=== PATIENT | male | born 1945 | race Caucasian/White ===

== ENCOUNTER 2016-09-07 11:12 | Emergency (ER) | payer MEDICARE, BC, OTHER ==
[~2016-09-07] VITALS: Ht 165.1 cm; Wt 95.5 kg
[~2016-09-07 11:12] MED LIST: ASPI81TA82 PO; BISA5TAB5 PO; CITRTAB7 PO; CYMB60CA PO; LANTUS2P SQ; NOVOLOGP2 SQ; OCUVTAB PO; PRAZ5CAP16 PO; PROT40TA PO; TURM500C PO; XANA0.5T PO; [UNRECOGNIZED DRUG - CODE] PO
[2016-09-07 11:14] VITALS: BP 162/94; PULSE 90; RESP 18; TEMP 98.2; O2SAT 98
[2016-09-07] MEDS ORDERED: methylPREDNISolone SOD SUCC 125 MG/2 ML VIAL IM ONE (12:00)
[2016-09-07] MEDS ORDERED: ORPHENADRINE INJ 60 MG/2 ML AMP IM ONE (12:00)
[2016-09-07] MEDS ORDERED: KETOROLAC TROMETHAMINE 60 MG/2 ML (IM) VIAL IM ONE (12:00)
[2016-09-07] MEDS ORDERED: CYCL5TAB PO (12:35)
--- NOTE | 2016-09-07 12:36 | PD ---
HPI Chief Complaint: Pain: Acute or Chronic Time Seen by Provider: 11:50 Travel History International Travel<30 days: No Contact w/Intl Traveler<30days: No Traveled to known affect area: No History of Present Illness HPI Patient is a 71-year-old male presenting to emergency for evaluation of left lower back pain. Patient has a history of sciatica, he states that he has been in physical therapy for the last 2 weeks. He reports exacerbation of his symptoms yesterday afternoon after physical therapy and when he notified his primary doctor he was advised to come to emergency department today. Patient states he has pain radiating down his left leg posteriorly as well as to the left groin. He denies any numbness, weakness in his extremities. He denies any recent injury or trauma. Patient has had exacerbations in the past similar to symptoms he is experiencing today. PFSH Past Medical History Hx Anticoagulant Therapy: Yes (asa) Arthritis: Yes Asthma: No Autoimmune Disease: No Blood Disorders: No Bipolar Disorder: Yes Anxiety: Yes Depression: Yes Heart Rhythm Problems: Yes Cancer: No Cardiac Catheterization: Yes Cardiovascular Problems: Yes (BYPASS) High Cholesterol: Yes Chemotherapy: No Chest Pain: Yes Congestive Heart Failure: Yes COPD: No Cerebrovascular Accident: No Coronary Artery Disease: Yes Diabetes: Yes Diminished Hearing: No Endocrine: Yes Gastrointestinal Disorders: Yes (GERD, ULCER, CORODED ESOPHAGUS, HX OF ESOPHAGEAL STRICTURE/DILATION) GERD: No Glaucoma: No Genitourinary: Yes (ENLARGED PROSTATE) Headaches: No Hepatitis: No Hiatal Hernia: Yes Hypertension: Yes Immune Disorder: No Implanted Vascular Access Dvce: No Kidney Stones: No Musculoskeletal: Yes (HX OF CERVICAL FUSION, BACK PROBLEMS, ARTHRITIS) Neurologic: Yes (MEINIERE'S DISEASE, BALANCE ISSUES) Psychiatric: Yes (PTSD) Reproductive: No Respiratory: No Immunizations Current: Yes Migraines: No Myocardial Infarction: Yes Radiation Therapy: No Renal Failure: No 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) Sickle Cell Disease: No Sleep Apnea: No Thyroid Disease: No Ulcer: No PNEUMOCCOCAL Vaccine (Year): 2009 Past Surgical History Abdominal Surgery: Yes (APPENDECTOMY - 1949; HERNIA - 2006; GANGRENOUS CYST ABDOMEN - 2006) AICD: No Appendectomy: Yes Arteriovenous Shunt: No Body Medical Devices: PLATE IN NECK, L LEG SCREW AND PLATES--REMOVED Cardiac Surgery: Yes (CABG 5 VESSEL 2000) Cholecystectomy: Yes (04/29/14) Coronary Artery Bypass Graft: Yes (5 VESSEL BYPASS) Coronary Stent: Yes (X3) Ear Surgery: No Endocrine Surgery: No Eye Surgery: Yes (2008 CATARACTS BILATERALLY) Genitourinary Surgery: Yes (TURP) Gynecologic Surgery: No Hysterectomy: No Insulin Pump: No Joint Replacement: No Neurologic Surgery: No Oral Surgery: Yes (TONSILECTOMY) Pacemaker: Yes (leads present) Thoracic Surgery: Yes (SEE CARDIAC SURGERY) Tonsillectomy: Yes Other Surgery: Yes (LEFT LEG R/T INJURY) Social History Alcohol Use: Yes (2X WEEKLY) Tobacco Use: No Substance Use: No Allergies-Medications (Allergen,Severity, Reaction): Coded Allergies: Lisinopril (Verified Allergy, Severe, Edema, 11/01/15) MRI PRECAUTION (Verified Adverse Reaction, Severe, PACER LEAD IN CHEST~ DR. GARCIA~LRS~06/26/14, 11/01/15) Lortab (Verified Adverse Reaction, Intermediate, ANXIETY, 11/01/15) Reported Meds & Prescriptions Reported Meds & Active Scripts Active Reported Xanax 0.5 mg (Alprazolam) Alprazolam 0.5 mg Tab 1 Tab PO Q6H PRN Cymbalta (Duloxetine Hcl) 60 Mg Cap 60 Mg PO DAILY Dulcolax (Bisacodyl) 5 Mg Tabec 5 Mg PO BID Ocuvite (Vit A/Vit C/Vit E/Selen/Cu/Zn/Lutei) Tab 1 Tab PO DAILY Turmeric Curcumin (Turmeric (Curcuma Longa)) 500 Mg Cap 500 Mg PO DAILY Citracal + D3 Maximum (Calcium Citrate/Cholecalciferol) Tab 1 Tab PO DAILY Prazosin Hcl (Prazosin HCl) 5 Mg Cap 5 Mg PO HS Protonix (Pantoprazole Sodium) 40 Mg Tab 40 Mg PO BID Novolog (Insulin Aspart) 100 Units/Ml Inj 25 Units SQ TIDAC HOLD IF BGM <120 Lantus (Insulin Glargine) 100 Units/Ml Inj 27 Unit SQ HS Aspir-81 (Aspirin) 81 Mg Tab 81 Mg PO DAILY Fortamet (Metformin HCl) 1,000 Mg Tab 1,000 Mg PO BID Review of Systems Except as stated in HPI: all other systems reviewed are Neg Musculoskeletal: Positive: Pain Physical Exam Narrative GENERAL: Well-nourished, well-developed patient. SKIN: Warm and dry. HEAD: Normocephalic. EYES: No scleral icterus. No injection or drainage. NECK: Supple, trachea midline. No JVD or lymphadenopathy. CARDIOVASCULAR: Regular rate and rhythm without murmurs, gallops, or rubs. RESPIRATORY: Breath sounds equal bilaterally. No accessory muscle use. GASTROINTESTINAL: Abdomen soft, non-tender, nondistended. MUSCULOSKELETAL: No cyanosis, or edema. Tenderness to palpation of left SI joint. 5/5 muscle strength in bilateral lower extremities. Left leg left elicits pain in the lower back. Full range of motion in all 4 extremities. Patient is neurologically and neurovascularly intact. BACK: Nontender without obvious deformity. No CVA tenderness. Data Data Last Documented VS Vital Signs Date Time Temp Pulse Resp B/P Pulse Ox O2 Delivery O2 Flow Rate FiO2 09/07/16 11:14 98.2 90 18 162/94 98 Room Air Orders Ketorolac Inj (Toradol Inj) (09/07/16 12:00) Methylprednisolone So Succ Inj (Solumedr (09/07/16 12:00) Orphenadrine Inj (Norflex Inj) (09/07/16 12:00) MDM Medical Decision Making Medical Screen Exam Complete: Yes Emergency Medical Condition: Yes Interpretation(s) Vital Signs Date Time Temp Pulse Resp B/P Pulse Ox O2 Delivery O2 Flow Rate FiO2 09/07/16 11:14 98.2 90 18 162/94 98 Room Air Differential Diagnosis Sciatica versus discogenic pain versus strain versus sprain versus spasm versus other Narrative Course Patient is a 71-year-old male presenting to the emergency department for evaluation of an exacerbation of his sciatica symptoms. This is a chronic issue , patient has been evaluated for this problem by his primary doctor and is currently undergoing physical therapy. The physical therapy has exacerbated his symptoms. Patient is neurologically intact, there is no weakness noted on exam he has full range of motion in all 4 extremities. Patient was given Norflex, Toradol, Solu-Medrol in the emergency department. He was advised to follow-up with his primary doctor for further evaluation and management. He was encouraged to return to emergency department for any new or worsening symptoms. He verbalized understanding of these instructions. Patient is stable for discharge. Diagnosis Primary Impression: Sciatica Qualified Code: M54.32 - Sciatica of left side Referrals: Primary Care Physician 1 day Patient Instructions: General Instructions, Sciatica (ED) Additional Instructions: Monitor blood sugar closely Follow-up with your primary doctor Take medications as directed Return to emergency department for any new or worsening symptoms Take [id number] acetaminophen as needed and as directed for pain Med/Other Pt SpecificInfo: Prescription(s) given Scripts Cyclobenzaprine (Flexeril)5 Mg Tab5 Mg PO BID 7 Days Ref 0 Prov:Concetta Martinez 09/07/16 Disposition: 01 DISCHARGE HOME Condition: Stable Concetta Martinez Sep 07, 2016 12:35
== END 2016-09-07 12:39 | disposition home or self-care (01) ==
LOC: NEPB 11:12
DX: M54.32 Sciatica, left side (principal); E78.00 Pure hypercholesterolemia, unspecified; I50.9 Heart failure, unspecified; I25.10 Atherosclerotic heart disease of native coronary artery without angina pectoris; E11.9 Type 2 diabetes mellitus without complications; I25.2 Old myocardial infarction; H81.09 Meniere's disease, unspecified ear; I10 Essential (primary) hypertension
CPT/HCPCS: 96372; 99282; J1885; J2360; J2930

== ENCOUNTER 2016-09-09 16:19 | Emergency (ER) | payer MEDICARE, BC, OTHER ==
[~2016-09-09] VITALS: Ht 165.1 cm; Wt 98.0 kg
[~2016-09-09 16:19] MED LIST changes: +CYCL5TAB PO
[2016-09-09 16:37] VITALS: BP 121/80; PULSE 86; RESP 14; TEMP 98.2; O2SAT 98
--- NOTE | 2016-09-09 17:42 | PD ---
HPI . sciatica Chief Complaint: Back/ Neck Pain or Injury Time Seen by Provider: 17:42 Travel History International Travel<30 days: No Contact w/Intl Traveler<30days: No Traveled to known affect area: No History of Present Illness HPI 71-year-old male with chronic back pain and sciatica here with complaints of sciatica. Patient was seen in our emergency department at the [facility] on September 07 for sciatica. He tells me since then he has traveled to [facility] to their hospital there and his primary care provider. He says he is not getting relief from any of the medications that we have provided him and he is here seeking pain management consultation. He tells me that his primary care provider told to come to the emergency department and we would be able to set him up with pain management. He is here wanting to see a pain specialist today. He says his PCP told him that he would send over all of the paperwork. He is hoping that we have some medications for him. Patient became upset when we discussed his pain and that I could not get pain management to see him in the ED. He told me that he might as well leave. He did allow examination. PFSH Past Medical History Hx Anticoagulant Therapy: Yes (asa) Arthritis: Yes Asthma: No Autoimmune Disease: No Blood Disorders: No Bipolar Disorder: Yes Anxiety: Yes Depression: Yes Heart Rhythm Problems: Yes Cancer: No Cardiac Catheterization: Yes Cardiovascular Problems: Yes (BYPASS) High Cholesterol: Yes Chemotherapy: No Chest Pain: Yes Congestive Heart Failure: Yes COPD: No Cerebrovascular Accident: No Coronary Artery Disease: Yes Diabetes: Yes Patient Takes Glucophage: No Diminished Hearing: No Endocrine: Yes Gastrointestinal Disorders: Yes (GERD, ULCER, CORODED ESOPHAGUS, HX OF ESOPHAGEAL STRICTURE/DILATION) GERD: No Glaucoma: No Genitourinary: Yes (ENLARGED PROSTATE) Headaches: No Hepatitis: No Hiatal Hernia: Yes Hypertension: Yes Immune Disorder: No Implanted Vascular Access Dvce: No Kidney Stones: No Musculoskeletal: Yes (HX OF CERVICAL FUSION, BACK PROBLEMS, ARTHRITIS) Neurologic: Yes (MEINIERE'S DISEASE, BALANCE ISSUES) Psychiatric: Yes (PTSD) Reproductive: No Respiratory: No Immunizations Current: Yes Migraines: No Myocardial Infarction: Yes Radiation Therapy: No Renal Failure: No 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) Sickle Cell Disease: No Sleep Apnea: No Thyroid Disease: No Ulcer: No Tetanus Vaccination: < 5 Years Influenza Vaccination: Yes PNEUMOCCOCAL Vaccine (Year): 2009 Past Surgical History Abdominal Surgery: Yes (APPENDECTOMY - 1949; HERNIA - 2006; GANGRENOUS CYST ABDOMEN - 2006) AICD: No Appendectomy: Yes Arteriovenous Shunt: No Body Medical Devices: PLATE IN NECK, L LEG SCREW AND PLATES--REMOVED Cardiac Surgery: Yes (CABG 5 VESSEL 2000) Cholecystectomy: Yes (04/29/14) Coronary Artery Bypass Graft: Yes (5 VESSEL BYPASS) Coronary Stent: Yes (X3) Ear Surgery: No Endocrine Surgery: No Eye Surgery: Yes (2008 CATARACTS BILATERALLY) Genitourinary Surgery: Yes (TURP) Gynecologic Surgery: No Hysterectomy: No Insulin Pump: No Joint Replacement: No Neurologic Surgery: No Oral Surgery: Yes (TONSILECTOMY) Pacemaker: Yes (leads present) Thoracic Surgery: Yes (SEE CARDIAC SURGERY) Tonsillectomy: Yes Other Surgery: Yes (LEFT LEG R/T INJURY) Social History Alcohol Use: Yes (2X WEEKLY) Tobacco Use: No Substance Use: No Allergies-Medications (Allergen,Severity, Reaction): Coded Allergies: Lisinopril (Verified Allergy, Severe, Edema, 09/09/16) MRI PRECAUTION (Verified Adverse Reaction, Severe, PACER LEAD IN CHEST~ DR. GARCIA~LRS~06/26/14, 09/09/16) Lortab (Verified Adverse Reaction, Intermediate, ANXIETY, 09/09/16) Reported Meds & Prescriptions Reported Meds & Active Scripts Active Flexeril (Cyclobenzaprine HCl) 5 Mg Tab 5 Mg PO BID 7 Days Reported Xanax 0.5 mg (Alprazolam) Alprazolam 0.5 mg Tab 1 Tab PO Q6H PRN Cymbalta (Duloxetine Hcl) 60 Mg Cap 60 Mg PO DAILY Dulcolax (Bisacodyl) 5 Mg Tabec 5 Mg PO BID Ocuvite (Vit A/Vit C/Vit E/Selen/Cu/Zn/Lutei) Tab 1 Tab PO DAILY Turmeric Curcumin (Turmeric (Curcuma Longa)) 500 Mg Cap 500 Mg PO DAILY Citracal + D3 Maximum (Calcium Citrate/Cholecalciferol) Tab 1 Tab PO DAILY Prazosin Hcl (Prazosin HCl) 5 Mg Cap 5 Mg PO HS Protonix (Pantoprazole Sodium) 40 Mg Tab 40 Mg PO BID Novolog (Insulin Aspart) 100 Units/Ml Inj 25 Units SQ TIDAC HOLD IF BGM <120 Lantus (Insulin Glargine) 100 Units/Ml Inj 27 Unit SQ HS Aspir-81 (Aspirin) 81 Mg Tab 81 Mg PO DAILY Fortamet (Metformin HCl) 1,000 Mg Tab 1,000 Mg PO BID Review of Systems General / Constitutional: No: Fever Eyes: No: Visual changes HENT: No: Headaches Cardiovascular: No: Chest Pain or Discomfort Respiratory: No: Shortness of Breath Gastrointestinal: No: Abdominal Pain Genitourinary: No: Dysuria Musculoskeletal: Positive: Pain (sciatica) Skin: No Rash Neurologic: No: Weakness Psychiatric: No: Depression Endocrine: No: Polydipsia Hematologic/Lymphatic: No: Easy Bruising Physical Exam Narrative GENERAL: AAO x 3, no acute distress, Well-nourished, well-developed patient. SKIN: Warm and dry. No visible rashes or bruising. HEAD: Normocephalic and atraumatic. EYES: No scleral icterus. No injection or drainage. ENT: No nasal drainage noted. Mucous membranes pink. Airway patent. NECK: Supple, trachea midline. No JVD. CARDIOVASCULAR: Regular rate and rhythm without murmurs, gallops, or rubs. RESPIRATORY: Breath sounds equal bilaterally. No accessory muscle use. No rhonchi or rales. GASTROINTESTINAL: Abdomen soft, non-tender, nondistended. EXTREMITIES: No cyanosis or edema. BACK: Nontender without obvious deformity. No CVA tenderness. Negative SLR. PSYCH: AAO x 3, normal affect. Data Data Last Documented VS Vital Signs Date Time Temp Pulse Resp B/P Pulse Ox O2 Delivery O2 Flow Rate FiO2 09/09/16 16:37 98.2 86 14 121/80 98 MDM Medical Decision Making Medical Screen Exam Complete: Yes Emergency Medical Condition: No Medical Record Reviewed: Yes Differential Diagnosis sciatica, acute on chronic back pain, less likely cauda equina Narrative Course 71-year-old male with chronic back pain and sciatica here with complaints of sciatica. Patient was seen in our emergency department at the [facility] on September 07 for sciatica. He tells me since then he has traveled to [facility] to their hospital there and his primary care provider. He says he is not getting relief from any of the medications that we have provided him and he is here seeking pain management consultation. He tells me that his primary care provider told to come to the emergency department and we would be able to set him up with pain management. He is here wanting to see a pain specialist today. He says his PCP told him that he would send over all of the paperwork. He is hoping that we have some medications for him. Patient became upset when we discussed his pain and that I could not get pain management to see him in the ED. He told me that he might as well leave. He did allow examination. A medical screening exam was performed: At the time of evaluation the presenting medical condition was determined not to be of an emergent nature. The patient was given the option of receiving additional care, but declined. Patient was given options for additional community resources from which to obtain care. The Patient Has Been advised to seek medical attention for their presenting complaint. The patient has been advised to return to the ER at any time if an emergent condition develops. Diagnosis Primary Impression: Encounter for medical screening examination Disposition: 01 DISCHARGE HOME Condition: Stable Antoinette Enriquez Sep 09, 2016 17:42
== END 2016-09-09 18:05 | disposition left against medical advice (07) ==
LOC: PHED 16:19 → PHEFT 18:05
DX: G89.29 Other chronic pain (principal); M54.5 Low back pain
CPT/HCPCS: 99281

== ENCOUNTER 2016-09-18 14:16 | Emergency (ER) | payer MEDICARE, BC, OTHER ==
[~2016-09-18] VITALS: Ht 165.1 cm; Wt 97.0 kg
[2016-09-18 14:24] VITALS: BP 133/86; PULSE 87; RESP 20; TEMP 97.9; O2SAT 96
[2016-09-18] MEDS ORDERED: CYMB60CA PO (14:42)
[2016-09-18] MEDS ORDERED: DULC5TAB PO (14:42)
[2016-09-18] MEDS ORDERED: NOVOLOGSS SQ (14:42)
[2016-09-18] MEDS ORDERED: CYCL5TAB PO (14:42)
[2016-09-18] MEDS ORDERED: ASPI-110 PO (14:42)
[2016-09-18] MEDS ORDERED: ALPR0.5T3 PO (14:42)
--- NOTE | 2016-09-18 14:43 | PD ---
HPI Chief Complaint: Pain: Acute or Chronic Time Seen by Provider: 14:31 Travel History International Travel<30 days: No Contact w/Intl Traveler<30days: No Traveled to known affect area: No History of Present Illness HPI 71-year-old male complains of left-sided low back pain. Patient states that he has history of recurrent low back pain has been seen by physicians, emergency room, personal physician, neurologist and awaiting appointment with pain clinic. Patient was seen in emergency room at [place] a week ago and subsequently at [facility] for pain. Patient denies any focal weakness or numbness of extremity. Patient denies any problem with bladder or bowel control. Patient has been taking hydrocodone at home for pain. Patient was given Medrol Dosepak recently also. PFSH Past Medical History Hx Anticoagulant Therapy: Yes (ASA 81 MG) Arthritis: Yes Asthma: No Autoimmune Disease: No Blood Disorders: No Bipolar Disorder: Yes Anxiety: Yes Depression: Yes Heart Rhythm Problems: Yes Cancer: No Cardiac Catheterization: Yes Cardiovascular Problems: Yes (BYPASS) High Cholesterol: Yes Chemotherapy: No Chest Pain: Yes Congestive Heart Failure: Yes COPD: No Cerebrovascular Accident: No Coronary Artery Disease: Yes Diabetes: Yes Patient Takes Glucophage: Yes Diminished Hearing: No Endocrine: Yes Gastrointestinal Disorders: Yes (GERD, ULCER, CORODED ESOPHAGUS, HX OF ESOPHAGEAL STRICTURE/DILATION) GERD: No Glaucoma: No Genitourinary: Yes (ENLARGED PROSTATE) Headaches: No Hepatitis: No Hiatal Hernia: Yes Heparin Induced Thrombocytopen: No Hypertension: Yes Immune Disorder: No Implanted Vascular Access Dvce: No Kidney Stones: No Medical other: No Musculoskeletal: Yes (HX OF CERVICAL FUSION, BACK PROBLEMS, ARTHRITIS) Neurologic: Yes (MEINIERE'S DISEASE, BALANCE ISSUES) Psychiatric: Yes (PTSD) Reproductive: No Respiratory: No Immunizations Current: Yes Migraines: No Myocardial Infarction: Yes Radiation Therapy: No Renal Failure: No 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) Sickle Cell Disease: No Sleep Apnea: No Thyroid Disease: No Ulcer: No Tetanus Vaccination: < 5 Years PNEUMOCCOCAL Vaccine (Year): 2009 Past Surgical History Abdominal Surgery: Yes (APPENDECTOMY - 1949; HERNIA - 2006; GANGRENOUS CYST ABDOMEN - 2006) AICD: No Appendectomy: Yes Arteriovenous Shunt: No Body Medical Devices: PLATE IN NECK, L LEG SCREW AND PLATES--REMOVED Cardiac Surgery: Yes (CABG 5 VESSEL 2000) Cholecystectomy: Yes (04/29/14) Coronary Artery Bypass Graft: Yes (5 VESSEL BYPASS) Coronary Stent: Yes (X3) Ear Surgery: No Endocrine Surgery: No Eye Surgery: Yes (2008 CATARACTS BILATERALLY) Genitourinary Surgery: Yes (TURP) Gynecologic Surgery: No Hysterectomy: No Insulin Pump: No Joint Replacement: No Neurologic Surgery: No Oral Surgery: Yes (TONSILECTOMY) Pacemaker: Yes (leads present) Thoracic Surgery: Yes (SEE CARDIAC SURGERY) Tonsillectomy: Yes Other Surgery: Yes (LEFT LEG R/T INJURY) Social History Alcohol Use: Yes (2X WEEKLY) Tobacco Use: No Substance Use: No Allergies-Medications (Allergen,Severity, Reaction): Coded Allergies: Lisinopril (Verified Allergy, Severe, Edema, 09/18/16) MRI PRECAUTION (Verified Adverse Reaction, Severe, PACER LEAD IN CHEST~ DR. GARCIA~LRS~06/26/14, 09/18/16) Lortab (Verified Adverse Reaction, Intermediate, ANXIETY, 09/18/16) Reported Meds & Prescriptions Reported Meds & Active Scripts Active Reported Turmeric (Turmeric (Curcuma Longa)) 500 Mg Cap 500 Mg PO DAILY Prazosin (Prazosin HCl) 5 Mg Cap 5 Mg PO HS Protonix (Pantoprazole Sodium) 40 Mg Tab 40 Mg PO BID Lantus Inj (Insulin Glargine) 1,000 Unit/10 Ml Vial 27 Units SQ HS Novolog Inj (Insulin Aspart) 100 Unit/Ml Inj 25 Units SQ DIRECTED Cymbalta DR (Duloxetine HCl) 60 Mg Capdr 60 Mg PO DAILY Flexeril (Cyclobenzaprine HCl) 5 Mg Tab 5 Mg PO BID Dulcolax DR (Bisacodyl) 5 Mg Tabdr 5 Mg PO BID PRN Alprazolam 0.5 Mg Tab 0.5 Mg PO Q6H PRN Review of Systems General / Constitutional: No: Fever Eyes: No: Visual changes HENT: No: Headaches Cardiovascular: No: Chest Pain or Discomfort Respiratory: No: Shortness of Breath Gastrointestinal: No: Abdominal Pain Genitourinary: No: Dysuria Musculoskeletal: No: Pain Skin: No Rash Neurologic: No: Weakness Psychiatric: No: Depression Endocrine: No: Polydipsia Hematologic/Lymphatic: No: Easy Bruising Physical Exam Narrative GENERAL: Well-nourished, well-developed patient. SKIN: Focused skin assessment warm/dry. HEAD: Normocephalic. EYES: No scleral icterus. No injection or drainage. NECK: Supple, trachea midline. No JVD or lymphadenopathy. CARDIOVASCULAR: Regular rate and rhythm without murmurs, gallops, or rubs. RESPIRATORY: Breath sounds equal bilaterally. No accessory muscle use. GASTROINTESTINAL: Abdomen soft, non-tender, nondistended. MUSCULOSKELETAL: No cyanosis, or edema. BACK: Patient had moderate tenderness on palpation right sciatic notch and right SI joint of the pelvis, without obvious deformity. No CVA tenderness. Negative straight leg raising. Neurologic exam normal. Data Data Last Documented VS Vital Signs Date Time Temp Pulse Resp B/P Pulse Ox O2 Delivery O2 Flow Rate FiO2 09/18/16 14:24 97.9 87 20 133/86 96 Orders Ketorolac Inj (Toradol Inj) (09/18/16 14:45) Orphenadrine Inj (Norflex Inj) (09/18/16 14:45) MDM Medical Decision Making Medical Screen Exam Complete: Yes Emergency Medical Condition: Yes Differential Diagnosis Differential diagnosis including acute on chronic low back pain, sciatica, bursitis, tendinitis. Narrative Course 71-year-old male complains of right low back pain and right buttock pain. History of recurrent low back pain and sciatica. Toradol 30 mg IM. Norflex 60 mg IM. Diagnosis Primary Impression: Acute exacerbation of chronic low back pain Patient Instructions: General Instructions Additional Instructions: Take medications as directed. Follow-up with personal physician and pain clinic as scheduled. Return if worse. Med/Other Pt SpecificInfo: Prescription(s) given Scripts Methocarbamol (Robaxin)750 Mg Qrk020 Mg PO QID #40 TAB Prov:Julio Cesar Irving MD 09/18/16 Meloxicam (Mobic)15 Mg Tab15 Mg PO DAILY #20 TAB Prov:Julio Cesar Irving MD 09/18/16 Disposition: 01 DISCHARGE HOME Condition: Stable Julio Cesar Irving MD Sep 18, 2016 14:43
[2016-09-18] MEDS ORDERED: LANTUS2P SQ (14:44)
[2016-09-18] MEDS ORDERED: PROT40TA PO (14:44)
[2016-09-18] MEDS ORDERED: PRAZ5CAP PO (14:44)
[2016-09-18] MEDS ORDERED: TURM500C PO (14:44)
[2016-09-18] MEDS ORDERED: ORPHENADRINE INJ 60 MG/2 ML AMP IM ONE (14:45)
[2016-09-18] MEDS ORDERED: KETOROLAC TROMETHAMINE 60 MG/2 ML (IM) VIAL IM ONE (14:45)
[2016-09-18] MEDS ORDERED: ROBA750T PO (15:11)
[2016-09-18] MEDS ORDERED: MOBI15TA PO (15:11)
== END 2016-09-18 15:24 | disposition home or self-care (01) ==
LOC: PHED 14:16
DX: M54.5 Low back pain (principal); G89.29 Other chronic pain; M19.90 Unspecified osteoarthritis, unspecified site; E78.00 Pure hypercholesterolemia, unspecified; I11.0 Hypertensive heart disease with heart failure; I50.9 Heart failure, unspecified; E11.9 Type 2 diabetes mellitus without complications; I25.10 Atherosclerotic heart disease of native coronary artery without angina pectoris; Z95.0 Presence of cardiac pacemaker
CPT/HCPCS: 96372; 99283; J1885; J2360

== ENCOUNTER 2016-10-17 09:35 | Emergency (ER) | payer MEDICARE, BC ==
[~2016-10-17] VITALS: Ht 165.1 cm; Wt 95.5 kg
[~2016-10-17 09:35] MED LIST changes: +ALPR0.5T3 PO; -ASPI81TA82 PO; -BISA5TAB5 PO; -CITRTAB7 PO; +DULC5TAB PO; +MOBI15TA PO; -NOVOLOGP2 SQ; +NOVOLOGSS SQ; -OCUVTAB PO; +PRAZ5CAP PO; -PRAZ5CAP16 PO; +ROBA750T PO; -XANA0.5T PO; -[UNRECOGNIZED DRUG - CODE] PO
[2016-10-17 09:37] VITALS: BP 154/79; PULSE 82; RESP 17; TEMP 97.7; O2SAT 98
[2016-10-17] MEDS ORDERED: DEXTROSE 50% IN WATER 50 ML SYRINGE ONE (09:49)
[2016-10-17] MEDS ORDERED: ROSU20 PO (10:02)
[2016-10-17] MEDS ORDERED: DIAZ2TAB PO (10:02)
[2016-10-17] MEDS ORDERED: ALBI1INJ2 SQ (10:02)
[2016-10-17] MEDS ORDERED: HYDR-3533 PO (10:02)
[2016-10-17] MEDS ORDERED: PRIL20CA9 PO (10:02)
[2016-10-17] MEDS ORDERED: ASPI81TA81 PO (10:02)
[2016-10-17] MEDS ORDERED: ALFU10TA3 PO (10:02)
[2016-10-17] MEDS ORDERED: AMLO5 PO (10:03)
[2016-10-17] MEDS ORDERED: MULT1TAB78 PO (10:03)
[2016-10-17] MEDS ORDERED: TRAZ50TA12 PO (10:03)
--- NOTE | 2016-10-17 10:22 | PD ---
HPI Chief Complaint: General Weakness Time Seen by Provider: 10:06 Travel History International Travel<30 days: No Contact w/Intl Traveler<30days: No Traveled to known affect area: No History of Present Illness HPI This patient reports that he had a low blood sugar attack. He has history of brittle diabetes and is very challenging for him to control his blood sugars. He says they're often too low and often too high. He does track them frequently and discusses with his physician. He used his usual Lantus insulin last night. This morning he gave himself 20 units of NovoLog at around 7 AM. He ate a breakfast of Hungarian toast. Later on he started to get generalized weakness and then get diaphoretic and shaky. He presents to the emergency room. He has a Accu-Chek of 60 upon arrival. Comes are of moderate severity. No alleviating factors. Duration is one hour. PFSH Past Medical History Hx Anticoagulant Therapy: Yes (ASA 81 MG) Arthritis: Yes Asthma: No Autoimmune Disease: No Blood Disorders: No Bipolar Disorder: Yes Anxiety: Yes Depression: Yes Heart Rhythm Problems: Yes Cancer: No Cardiac Catheterization: Yes Cardiovascular Problems: Yes (BYPASS) High Cholesterol: Yes Chemotherapy: No Chest Pain: Yes Congestive Heart Failure: Yes COPD: No Cerebrovascular Accident: No Coronary Artery Disease: Yes Diabetes: Yes Patient Takes Glucophage: No Diminished Hearing: No Endocrine: Yes Gastrointestinal Disorders: Yes (GERD, ULCER, CORODED ESOPHAGUS, HX OF ESOPHAGEAL STRICTURE/DILATION) GERD: No Glaucoma: No Genitourinary: Yes (ENLARGED PROSTATE) Headaches: No Hepatitis: No Hiatal Hernia: Yes Heparin Induced Thrombocytopen: No Hypertension: Yes Immune Disorder: No Implanted Vascular Access Dvce: No Kidney Stones: No Musculoskeletal: Yes (HX OF CERVICAL FUSION, BACK PROBLEMS, ARTHRITIS) Neurologic: Yes (MEINIERE'S DISEASE, BALANCE ISSUES) Psychiatric: Yes (PTSD) Reproductive: No Respiratory: No Immunizations Current: Yes Migraines: No Myocardial Infarction: Yes Radiation Therapy: No Renal Failure: No 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) Sickle Cell Disease: No Sleep Apnea: No Thyroid Disease: No Triglycerides - High: No Ulcer: No PNEUMOCCOCAL Vaccine (Year): 2009 Past Surgical History Abdominal Surgery: Yes (APPENDECTOMY - 1949; HERNIA - 2006; GANGRENOUS CYST ABDOMEN - 2006) AICD: No Appendectomy: Yes Arteriovenous Shunt: No Body Medical Devices: PLATE IN NECK, L LEG SCREW AND PLATES--REMOVED Cardiac Surgery: Yes (CABG 5 VESSEL 2000) Cholecystectomy: Yes (04/29/14) Coronary Artery Bypass Graft: Yes (5 VESSEL BYPASS) Coronary Stent: Yes (X3) Ear Surgery: No Endocrine Surgery: No Eye Surgery: Yes (2008 CATARACTS BILATERALLY) Genitourinary Surgery: Yes (TURP) Gynecologic Surgery: No Hysterectomy: No Insulin Pump: No Joint Replacement: No Neurologic Surgery: No Oral Surgery: Yes (TONSILECTOMY) Pacemaker: Yes Thoracic Surgery: Yes (SEE CARDIAC SURGERY) Tonsillectomy: Yes Other Surgery: Yes (LEFT LEG R/T INJURY) Social History Alcohol Use: Yes (2X WEEKLY) Tobacco Use: No (0.5 PPD) Substance Use: No Allergies-Medications (Allergen,Severity, Reaction): Coded Allergies: Lisinopril (Verified Allergy, Severe, Edema, 10/17/16) MRI PRECAUTION (Verified Adverse Reaction, Severe, PACER LEAD IN CHEST~ DR. GARCIA~LRS~06/26/14, 10/17/16) Lortab (Verified Adverse Reaction, Intermediate, ANXIETY, 10/17/16) Reported Meds & Prescriptions Reported Meds & Active Scripts Active Robaxin (Methocarbamol) 750 Mg Tab 750 Mg PO QID Mobic (Meloxicam) 15 Mg Tab 15 Mg PO DAILY Reported Trazodone (Trazodone HCl) 50 Mg Tab 50 Mg PO HS Multivitamin Adults 50+ (Multiple Vitamins W/ Minerals) 1 Tab Tab 1 Tab PO DAILY Norvasc (Amlodipine Besylate) 5 Mg Tab 5 Mg PO DAILY Lortab (Hydrocodone-Acetaminophen) 5-325 Mg Tab 1 Tab PO Q6H PRN Diazepam 2 Mg Tab 2 Mg PO TID PRN Aspir-81 (Aspirin) 81 Mg Tabdr 81 Mg PO DAILY Crestor (Rosuvastatin Calcium) 20 Mg Tab 20 Mg PO DAILY Alfuzosin HCl ER (Alfuzosin HCl) 10 Mg Tab 10 Mg PO HS Tanzeum 4-Pack Inj (Albiglutide) 50 Mg Pfpen 50 Mg SQ Q7D Prilosec (Omeprazole) 20 Mg Cap 40 Mg PO DAILY Turmeric (Turmeric (Curcuma Longa)) 500 Mg Cap 500 Mg PO DAILY Prazosin (Prazosin HCl) 5 Mg Cap 5 Mg PO HS Lantus Inj (Insulin Glargine) 1,000 Unit/10 Ml Vial 50 Units SQ HS Novolog Inj (Insulin Aspart) 100 Unit/Ml Inj 25 Units SQ DIRECTED Cymbalta DR (Duloxetine HCl) 60 Mg Capdr 60 Mg PO DAILY Dulcolax DR (Bisacodyl) 5 Mg Tabdr 5 Mg PO BID PRN Review of Systems General / Constitutional: No: Fever Eyes: No: Visual changes HENT: No: Headaches Cardiovascular: Positive: Diaphoresis, No: Chest Pain or Discomfort Respiratory: No: Shortness of Breath Gastrointestinal: No: Abdominal Pain Genitourinary: No: Dysuria Musculoskeletal: Positive: Weakness, No: Pain Skin: No Rash Neurologic: Positive: Weakness Psychiatric: No: Depression Endocrine: No: Polydipsia Hematologic/Lymphatic: No: Easy Bruising Physical Exam Narrative GENERAL: Well-nourished, well-developed patient in no apparent distress. SKIN: Focused skin assessment reveals no rash and nodules. Skin is a bit diaphoretic HEAD: Atraumatic. Normocephalic. EYES: Pupils equal and round. No scleral icterus. No injection or drainage. ENT: No nasal bleeding or discharge. Mucous membranes pink and moist. NECK: Trachea midline. No JVD. CARDIOVASCULAR: Regular rate and rhythm. No murmur appreciated. RESPIRATORY: No accessory muscle use. Clear to auscultation. Breath sounds equal bilaterally. GASTROINTESTINAL: Abdomen soft, non-tender, nondistended. Hepatic and splenic margins not palpable. MUSCULOSKELETAL: No obvious deformities. No clubbing. No cyanosis. No edema. NEUROLOGICAL: Awake and alert. No obvious cranial nerve deficits. Motor grossly within normal limits. Normal speech. PSYCHIATRIC: Appropriate mood and affect; insight and judgment normal. Data Data Last Documented VS Vital Signs Date Time Temp Pulse Resp B/P Pulse Ox O2 Delivery O2 Flow Rate FiO2 10/17/16 09:37 97.7 82 17 154/79 98 Orders Dextrose 50% In Ruben (Syr) Inj (D50w (Syr (10/17/16 09:49) Dextrose 50% In Ruben (Vial) Inj (D50w (Vi (10/17/16 10:30) Iv Access Insert/Monitor (10/17/16 10:16) Complete Blood Count With Diff (10/17/16 10:16) Basic Metabolic Panel (Bmp) (10/17/16 10:16) Diet Regular Basic (10/17/16 Breakfast) Labs Laboratory Tests Test 10/17/16 10:15 White Blood Count 12.1 TH/MM3 Red Blood Count 6.05 MIL/MM3 Hemoglobin 13.2 GM/DL Hematocrit 42.9 % Mean Corpuscular Volume 70.9 FL Mean Corpuscular Hemoglobin 21.8 PG Mean Corpuscular Hemoglobin 30.8 % Concent Red Cell Distribution Width 22.1 % Platelet Count 206 TH/MM3 Mean Platelet Volume 9.2 FL Neutrophils (%) (Auto) 61.7 % Lymphocytes (%) (Auto) 29.5 % Monocytes (%) (Auto) 7.4 % Eosinophils (%) (Auto) 0.8 % Basophils (%) (Auto) 0.6 % Neutrophils # (Auto) 7.4 TH/MM3 Lymphocytes # (Auto) 3.6 TH/MM3 Monocytes # (Auto) 0.9 TH/MM3 Eosinophils # (Auto) 0.1 TH/MM3 Basophils # (Auto) 0.1 TH/MM3 CBC Comment AUTO DIFF Differential Comment AUTO DIFF CONFIRMED Ovalocytes 1+ Sodium Level 141 MEQ/L Potassium Level 3.4 MEQ/L Chloride Level 106 MEQ/L Carbon Dioxide Level 27.3 MEQ/L Anion Gap 8 MEQ/L Blood Urea Nitrogen 20 MG/DL Creatinine 1.06 MG/DL Estimat Glomerular Filtration 69 ML/MIN Rate Random Glucose 52 MG/DL Calcium Level 9.1 MG/DL MDM Medical Decision Making Medical Screen Exam Complete: Yes Emergency Medical Condition: Yes Medical Record Reviewed: Yes Differential Diagnosis Hypoglycemic episode, adverse effect of insulin, accidental overuse Narrative Course I have reviewed the patient's electronic medical record. Patient was here 4 weeks ago with back pain IV placed Accu-Chek is 60 and he is symptomatic with his hypoglycemia so therefore I gave him a half amp of D50 IV and some orange juice. He is hungry so I ordered him a regular meal tray Follow his sugars closely CBC is normal Metabolic profile is normal other than hypoglycemia I observed the patient for while. He is now completely asymptomatic and wants to go home. Accu-Chek at this time is 210 He will check and record sugar frequently He will call his physician tomorrow for follow-up His sugars are frequently very elevated and difficult to change his insulin dosing around Diagnosis Primary Impression: Hypoglycemia associated with diabetes Additional Instructions: Check and record blood sugar frequently The patient was advised to follow up with their physician and return if they worsen. Med/Other Pt SpecificInfo: Other Disposition: 01 DISCHARGE HOME Condition: Stable Sourav Malcolm MD Oct 17, 2016 10:22
[2016-10-17] MEDS ORDERED: DEXTROSE 50% IN WATER 50 ML VIAL(D50) IV PUSH ONE (10:30)
[2016-10-17 10:49] LABS: AUTOMATED NEUTROPHIL # 7.4 TH/MM3 (1.8-7.7); BASOPHIL # 0.1 TH/MM3 (0-0.2); BASOPHIL % 0.6 % (0.0-2.0); EOSINOPHIL # 0.1 TH/MM3 (0-0.4); EOSINOPHIL % 0.8 % (0.0-4.0); HEMATOCRIT 42.9 % (39.0-51.0); LYMPH % 29.5 % (9.0-44.0); LYMPHOCYTE # 3.6 TH/MM3 (1.0-4.8); MEAN CELL VOLUME 70.9 FL (80.0-100.0); MEAN CORPUSCULAR HEMOGLOBIN 21.8 PG (27.0-34.0); MEAN CORPUSCULAR HGB CONC 30.8 % (32.0-36.0); MONO % 7.4 % (0.0-8.0); NEUT % 61.7 % (16.0-70.0); PLATELET COUNT 206 TH/MM3 (150-450); RED BLOOD COUNT 6.05 MIL/MM3 (4.50-5.90); RED CELL DISTRIBUTION WIDTH 22.1 % (11.6-17.2); WHITE BLOOD COUNT 12.1 TH/MM3 (4.0-11.0)
[2016-10-17 10:54] LABS: BICARBONATE 27.3 MEQ/L (21.0-32.0); HEMO FLAGS AUTO DIFF; POTASSIUM 3.4 MEQ/L (3.5-5.1)
[2016-10-17 11:30] LABS: OVALOCYTES 1+ (NORMAL); SCAN/DIFF AUTO DIFF CONFIRMED
== END 2016-10-17 12:54 | disposition home or self-care (01) ==
LOC: NEPC 09:35
DX: E11.649 Type 2 diabetes mellitus with hypoglycemia without coma (principal); Z79.4 Long term (current) use of insulin; I50.9 Heart failure, unspecified; I10 Essential (primary) hypertension; F43.10 Post-traumatic stress disorder, unspecified; I25.2 Old myocardial infarction; Z95.1 Presence of aortocoronary bypass graft; Z95.0 Presence of cardiac pacemaker
CPT/HCPCS: 80048; 85025; 96374

== ENCOUNTER 2016-11-10 14:12 | Emergency (ER) | payer MEDICARE, BC, OTHER ==
[~2016-11-10] VITALS: Ht 165.1 cm; Wt 93.0 kg
[~2016-11-10 14:12] MED LIST changes: +ALBI1INJ2 SQ; +ALFU10TA3 PO; -ALPR0.5T3 PO; +AMLO5 PO; +ASPI81TA81 PO; -CYCL5TAB PO; +DIAZ2TAB PO; +HYDR-3533 PO; +MULT1TAB78 PO; +PRIL20CA9 PO; -PROT40TA PO; +ROSU20 PO; +TRAZ50TA12 PO
[2016-11-10 14:20] VITALS: BP 171/103; PULSE 97; RESP 18; TEMP 97.9; O2SAT 97
[2016-11-10] MEDS ORDERED: ACETAMINOPHEN 500 MG CPLT PO ONE (14:30)
[2016-11-10] MEDS ORDERED: LABETALOL HCL 100 MG/20 ML VIAL IV PUSH ONE (14:30)
[2016-11-10] MEDS ORDERED: SODIUM CHLOR 0.9% 1000 ML INJ 1,000 ML IV ONE (14:30)
--- NOTE | 2016-11-10 14:32 | PD ---
HPI Chief Complaint: Dizziness Time Seen by Provider: 14:24 Travel History International Travel<30 days: No Contact w/Intl Traveler<30days: No Traveled to known affect area: No History of Present Illness HPI This is a 71-year-old male who has a history chronic vertigo who is currently in rehabilitation who presents to the emergency department having onset of a headache that started at rehabilitation, constant, feeling like his head is an 5 associated with dizziness feeling like the room is spinning and some diaphoresis and clamminess. His therapist checked his blood pressure and it was in the 170s systolic so they sent him to the emergency department. He did get his home medications today. He takes aspirin at home. He does have dizziness which is chronic for him that the headache is new. PFSH Past Medical History Hx Anticoagulant Therapy: Yes (ASA 81 MG) Arthritis: Yes Asthma: No Autoimmune Disease: No Blood Disorders: No Bipolar Disorder: Yes Anxiety: Yes Depression: Yes Heart Rhythm Problems: Yes Cancer: No Cardiac Catheterization: Yes Cardiovascular Problems: Yes High Cholesterol: Yes Chemotherapy: No Chest Pain: Yes Congestive Heart Failure: Yes COPD: No Cerebrovascular Accident: No Coronary Artery Disease: Yes Diabetes: Yes Patient Takes Glucophage: No Diminished Hearing: No Endocrine: Yes Gastrointestinal Disorders: Yes (GERD, ULCER, CORODED ESOPHAGUS, HX OF ESOPHAGEAL STRICTURE/DILATION) GERD: No Glaucoma: No Genitourinary: Yes (ENLARGED PROSTATE) Headaches: No Hepatitis: No Hiatal Hernia: Yes Heparin Induced Thrombocytopen: No Hypertension: Yes Immune Disorder: No Implanted Vascular Access Dvce: No Kidney Stones: No Musculoskeletal: Yes (HX OF CERVICAL FUSION, BACK PROBLEMS, ARTHRITIS) Neurologic: Yes (MEINIERE'S DISEASE, BALANCE ISSUES) Psychiatric: Yes (PTSD) Reproductive: No Respiratory: No Immunizations Current: Yes Migraines: No Myocardial Infarction: Yes Radiation Therapy: No Renal Failure: No 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) Sickle Cell Disease: No Sleep Apnea: No Thyroid Disease: No Triglycerides - High: No Ulcer: No Tetanus Vaccination: < 5 Years Influenza Vaccination: Yes PNEUMOCCOCAL Vaccine (Year): 2009 Past Surgical History Abdominal Surgery: Yes (APPENDECTOMY - 1949; HERNIA - 2006; GANGRENOUS CYST ABDOMEN - 2006) AICD: No Appendectomy: Yes Arteriovenous Shunt: No Body Medical Devices: PLATE IN NECK, L LEG SCREW AND PLATES--REMOVED Cardiac Surgery: Yes (CABG 5 VESSEL 2000) Cholecystectomy: Yes (04/29/14) Coronary Artery Bypass Graft: Yes (5 VESSEL BYPASS) Coronary Stent: Yes (X3) Ear Surgery: No Endocrine Surgery: No Eye Surgery: Yes (2008 CATARACTS BILATERALLY) Genitourinary Surgery: Yes (TURP) Gynecologic Surgery: No Hysterectomy: No Insulin Pump: No Joint Replacement: No Neurologic Surgery: No Oral Surgery: Yes (TONSILECTOMY) Pacemaker: Yes Thoracic Surgery: Yes (SEE CARDIAC SURGERY) Tonsillectomy: Yes Other Surgery: Yes (LEFT LEG R/T INJURY) Social History Alcohol Use: Yes (2X WEEKLY) Tobacco Use: No (0.5 PPD) Substance Use: No Allergies-Medications (Allergen,Severity, Reaction): Coded Allergies: Lisinopril (Verified Allergy, Severe, Edema, 11/10/16) MRI PRECAUTION (Verified Adverse Reaction, Severe, PACER LEAD IN CHEST~ DR. GARCIA~LRS~06/26/14, 11/10/16) Lortab (Verified Adverse Reaction, Intermediate, ANXIETY, 11/10/16) Reported Meds & Prescriptions Reported Meds & Active Scripts Active Reported Probiotic (Lactobacillus Acidophilus) 1 Cap Cap 1 Cap PO TIDAC Ocuflox Opth Drops (Ofloxacin Opth Drops) 0.3 % Drops 1 Drop EACH EYE QID Citracal + D3 Maximum (Calcium Citrate-Vitamin D) 315-250 Mg-Unit Tab 1 Tab PO BID Metamucil Smooth Texture (Psyllium Hydrophilic Mucilloid) 28.3 % Pow 1 Scoop PO TID PRN 1 rounded TEASPOON in 8 oz of liquid at the first sign of irregularity. Melatonin 5 Mg Tab 5 Mg PO HS Trazodone (Trazodone HCl) 50 Mg Tab 50 Mg PO HS Multivitamin Adults 50+ (Multiple Vitamins W/ Minerals) 1 Tab Tab 1 Tab PO DAILY Norvasc (Amlodipine Besylate) 5 Mg Tab 5 Mg PO DAILY Aspir-81 (Aspirin) 81 Mg Tabdr 81 Mg PO DAILY Crestor (Rosuvastatin Calcium) 20 Mg Tab 20 Mg PO DAILY Alfuzosin HCl ER (Alfuzosin HCl) 10 Mg Tab 10 Mg PO HS Tanzeum 4-Pack Inj (Albiglutide) 50 Mg Pfpen 50 Mg SQ Q7D Prilosec (Omeprazole) 20 Mg Cap 40 Mg PO DAILY Turmeric (Turmeric (Curcuma Longa)) 500 Mg Cap 500 Mg PO DAILY Lantus Inj (Insulin Glargine) 1,000 Unit/10 Ml Vial 50 Units SQ HS Novolog Inj (Insulin Aspart) 100 Unit/Ml Inj 25 Units SQ DIRECTED Zack DR (Duloxetine HCl) 60 Mg Capdr 60 Mg PO DAILY Review of Systems Except as stated in HPI: all other systems reviewed are Neg Physical Exam Narrative GENERAL:Well appearing, no acute distress SKIN: Focused skin assessment warm and dry. HEAD: Atraumatic. Normocephalic. EYES: Pupils equal and round. No injection or drainage. ENT: Moist mucous membranes NECK: Trachea midline. CARDIOVASCULAR: Regular rate and rhythm. No murmur appreciated. RESPIRATORY: Clear to auscultation. Breath sounds equal bilaterally. GASTROINTESTINAL: Abdomen soft, non-tender, nondistended. MUSCULOSKELETAL: No obvious deformities. NEUROLOGICAL: Awake and alert. No obvious cranial nerve deficits. No dysarthria or aphasia. No upper or lower extremity drift. No upper extremity ataxia. PSYCHIATRIC: Appropriate mood and affect; insight and judgment normal. Data Data Last Documented VS Vital Signs Date Time Temp Pulse Resp B/P Pulse Ox O2 Delivery O2 Flow Rate FiO2 11/10/16 14:20 97.9 97 18 171/103 97 Orders Complete Blood Count With Diff (11/10/16 14:29) Comprehensive Metabolic Panel (11/10/16 14:29) Troponin I (11/10/16 14:29) Electrocardiogram (11/10/16 ) Ct Brain W/O Iv Contrast(Rout) (11/10/16 ) Labetalol Inj (Trandate Inj) (11/10/16 14:30) Sodium Chlor 0.9% 1000 Ml Inj (Ns 1000 M (11/10/16 14:30) Acetaminophen (Tylenol) (11/10/16 14:30) Labs Laboratory Tests Test 11/10/16 14:45 White Blood Count 10.9 TH/MM3 Red Blood Count 5.51 MIL/MM3 Hemoglobin 12.8 GM/DL Hematocrit 40.3 % Mean Corpuscular Volume 73.1 FL Mean Corpuscular Hemoglobin 23.3 PG Mean Corpuscular Hemoglobin 31.8 % Concent Red Cell Distribution Width 20.4 % Platelet Count 212 TH/MM3 Mean Platelet Volume 10.3 FL Neutrophils (%) (Auto) 70.3 % Lymphocytes (%) (Auto) 22.7 % Monocytes (%) (Auto) 5.7 % Eosinophils (%) (Auto) 0.8 % Basophils (%) (Auto) 0.5 % Neutrophils # (Auto) 7.6 TH/MM3 Lymphocytes # (Auto) 2.5 TH/MM3 Monocytes # (Auto) 0.6 TH/MM3 Eosinophils # (Auto) 0.1 TH/MM3 Basophils # (Auto) 0.1 TH/MM3 CBC Comment AUTO DIFF Differential Comment AUTO DIFF CONFIRMED Sodium Level 142 MEQ/L Potassium Level 3.8 MEQ/L Chloride Level 106 MEQ/L Carbon Dioxide Level 28.1 MEQ/L Anion Gap 8 MEQ/L Blood Urea Nitrogen 25 MG/DL Creatinine 1.00 MG/DL Estimat Glomerular Filtration 74 ML/MIN Rate Random Glucose 147 MG/DL Calcium Level 8.6 MG/DL Total Bilirubin 0.2 MG/DL Aspartate Amino Transf 12 U/L (AST/SGOT) Alanine Aminotransferase 20 U/L (ALT/SGPT) Alkaline Phosphatase 78 U/L Troponin I LESS THAN 0.02 NG/ML Total Protein 7.1 GM/DL Albumin 3.4 GM/DL MDM Medical Decision Making Medical Screen Exam Complete: Yes Emergency Medical Condition: Yes Interpretation(s) afebrile, tachycardic No leukocytosis Electrolytes are reassuring Troponin is normal Differential Diagnosis Hypertensive urgency, hypertensive emergency, intracranial hemorrhage, subarachnoid hemorrhage Narrative Course This is a 71-year-old male who presents to the emergency department with headache and dizziness. He is currently in rehabilitation for vertigo. He was quite hypertensive on arrival. He was placed on a monitor and an IV was established. His blood pressure came down without medication. He felt much better once his blood pressure improved. CT was obtained which was reassuring. Ct was obtained within 2 hours of onset of headache so I think subarachnoid hemorrhage is very unlikely. I think patient can safely be discharged and I think his symptoms were in the setting of hypertensive urgency which is resolved. Diagnosis Primary Impression: Hypertensive urgency Patient Instructions: General Instructions Additional Instructions: If you develop severe worsening headache, persistent vomiting, numbness, weakness, difficulty walking or difficulty talking return to the emergency department immediately. Sometimes in the emergency department we did not identify the cause of headaches. If you continued to have headaches it is very important that you followup with your primary care physician as you may need further testing with an MRI. Med/Other Pt SpecificInfo: No Change to Meds Disposition: 01 DISCHARGE HOME Condition: Stable Kaitlin Robles MD November 10, 2016 14:32
[2016-11-10] MEDS ORDERED: LACTCAP8 PO (14:34)
[2016-11-10] MEDS ORDERED: OCUF0.3D EACH EYE (14:34)
[2016-11-10] MEDS ORDERED: META28.34 PO (14:34)
[2016-11-10] MEDS ORDERED: MELA5TAB15 PO (14:34)
[2016-11-10] MEDS ORDERED: CITRTAB7 PO (14:34)
[2016-11-10 14:50] VITALS: BP 135/87; PULSE 88; RESP 18; O2SAT 98
[2016-11-10 15:00] LABS: AUTOMATED NEUTROPHIL # 7.6 TH/MM3 (1.8-7.7); BASOPHIL # 0.1 TH/MM3 (0-0.2); BASOPHIL % 0.5 % (0.0-2.0); EOSINOPHIL # 0.1 TH/MM3 (0-0.4); EOSINOPHIL % 0.8 % (0.0-4.0); HEMATOCRIT 40.3 % (39.0-51.0); LYMPH % 22.7 % (9.0-44.0); LYMPHOCYTE # 2.5 TH/MM3 (1.0-4.8); MEAN CELL VOLUME 73.1 FL (80.0-100.0); MEAN CORPUSCULAR HEMOGLOBIN 23.3 PG (27.0-34.0); MEAN CORPUSCULAR HGB CONC 31.8 % (32.0-36.0); MONO % 5.7 % (0.0-8.0); NEUT % 70.3 % (16.0-70.0); PLATELET COUNT 212 TH/MM3 (150-450); RED BLOOD COUNT 5.51 MIL/MM3 (4.50-5.90); RED CELL DISTRIBUTION WIDTH 20.4 % (11.6-17.2); WHITE BLOOD COUNT 10.9 TH/MM3 (4.0-11.0)
[2016-11-10 15:01] LABS: HEMO FLAGS AUTO DIFF
[2016-11-10 15:09] LABS: CHLORIDE 106 MEQ/L (98-107); POTASSIUM 3.8 MEQ/L (3.5-5.1); SODIUM (NA) 142 MEQ/L (136-145)
[2016-11-10 15:15] LABS: ANION GAP 8 MEQ/L (5-15); BICARBONATE 28.1 MEQ/L (21.0-32.0); BLOOD UREA NITROGEN 25 MG/DL (7-18)
[2016-11-10 15:18] LABS: ALT (GPT) 20 U/L (12-78); AST (GOT) 12 U/L (15-37); GLOMERULAR FILTRATION RATE 74 ML/MIN (>89)
[2016-11-10 15:19] LABS: TOTAL BILIRUBIN ADULT 0.2 MG/DL (0.2-1.0)
[2016-11-10 15:21] LABS: ALKALINE PHOSPHATASE 78 U/L (45-117)
[2016-11-10 15:31] LABS: SCAN/DIFF AUTO DIFF CONFIRMED
--- NOTE | 2016-11-10 15:40 | RADHPO ---
EXAM DATE/TIME: 11/10/2016 15:14 [facility] COMPARISON: CT BRAIN W/O CONTRAST, October 22, 2015, 10:54. INDICATIONS : Dizziness. RADIATION DOSE: 63.52 CTDIvol (mGy) MEDICAL HISTORY : Hypertension. Diabetes mellitus type 2. Meiniere's disease. SURGICAL HISTORY : None. ENCOUNTER: Initial ACUITY: 1 day PAIN SCALE: 0/10 LOCATION: cranial TECHNIQUE: Multiple contiguous axial images were obtained of the head. Using automated exposure control and adj ustment of the mA and/or kV according to patient size, radiation dose was kept as low as reasonably a chievable to obtain optimal diagnostic quality images. FINDINGS: There is patchy mild deep white matter hypodensity which is benign and unchanged. Ventricles are stab le and symmetric. There is no evidence of intracranial mass or hemorrhage. There is nothing to sugges t acute infarction. The extracranial structures are benign and intact. CONCLUSION: No acute intracranial findings Kyle Macdonald MD on November 10, 2016 at 15:36 Board Certified Radiologist. This report was verified electronically.
[2016-11-10 16:07] VITALS: BP 150/83; PULSE 80; RESP 18; O2SAT 98
--- NOTE | 2016-11-11 17:32 | EKG ---
Date Performed: 11/10/2016 Time Performed: 14:45:22 PTAGE: 71 years EKG: Sinus rhythm Anteroseptal T wave changes are nonspecific Borderline ECG PREVIOUS TRACING : 10/28/2015 08.33 Compared to prior tracing no significant change DOCTOR: Kt Rollins Interpretating Date/Time 11/11/2016 17:32:14
== END 2016-11-10 16:19 | disposition home or self-care (01) ==
LOC: PHED 14:12
DX: I16.0 Hypertensive urgency (principal); R51 Headache; R42 Dizziness and giddiness; R00.0 Tachycardia, unspecified; I50.9 Heart failure, unspecified; I25.10 Atherosclerotic heart disease of native coronary artery without angina pectoris; E11.9 Type 2 diabetes mellitus without complications; I10 Essential (primary) hypertension; F43.10 Post-traumatic stress disorder, unspecified
CPT/HCPCS: 70450; 80053; 84484; 85025; 93005; 96360; 99285; J7030

== ENCOUNTER 2017-10-12 13:56 | Observation (INO) | payer MEDICARE, BC, OTHER ==
[2017-10-12] VITALS (8 sets, daily range): BP systolic 117–139; BP diastolic 65–78; PULSE 78–94; RESP 16–22; TEMP 97.1–98.1; O2SAT 93–98
[~2017-10-12 13:56] MED LIST changes: +CITRTAB7 PO; -DIAZ2TAB PO; -DULC5TAB PO; -HYDR-3533 PO; +LACTCAP8 PO; +MELA5 PO; +META28.34 PO; -MOBI15TA PO; +OCUF0.3D EACH EYE; -PRAZ5CAP PO; -ROBA750T PO
[2017-10-12] MEDS ORDERED: ASPIRIN 325 MG TAB PO ONE (14:30)
[2017-10-12] MEDS ORDERED: SODIUM CHLORIDE 0.9% FLUSH 10 ML FLUSH IVF PRN (14:30)
[2017-10-12] MEDS ORDERED: NITROGLYCERIN 0.4 MG SL 25 TABS/BTL SL ONE (14:30)
[2017-10-12 14:36] LABS: AUTOMATED NEUTROPHIL # 4.5 TH/MM3 (1.8-7.7); BASOPHIL # 0.1 TH/MM3 (0-0.2); BASOPHIL % 0.9 % (0.0-2.0); EOSINOPHIL # 0.2 TH/MM3 (0-0.4); EOSINOPHIL % 2.2 % (0.0-4.0); HEMATOCRIT 41.4 % (39.0-51.0); HEMOGLOBIN 13.7 GM/DL (13.0-17.0); LYMPH % 29.1 % (9.0-44.0); LYMPHOCYTE # 2.2 TH/MM3 (1.0-4.8); MEAN CORPUSCULAR HEMOGLOBIN 25.9 PG (27.0-34.0); MEAN CORPUSCULAR HGB CONC 33.2 % (32.0-36.0); MONO % 8.1 % (0.0-8.0); MONOCYTE # 0.6 TH/MM3 (0-0.9); NEUT % 59.7 % (16.0-70.0); PLATELET COUNT 185 TH/MM3 (150-450); RED BLOOD COUNT 5.31 MIL/MM3 (4.50-5.90); RED CELL DISTRIBUTION WIDTH 16.6 % (11.6-17.2); WHITE BLOOD COUNT 7.5 TH/MM3 (4.0-11.0)
[2017-10-12 14:52] LABS: ALBUMIN 3.7 GM/DL (3.4-5.0); ALT (GPT) 20 U/L (12-78); AST (GOT) 15 U/L (15-37); BICARBONATE 25.3 MEQ/L (21.0-32.0); BLOOD UREA NITROGEN 26 MG/DL (7-18); CALCIUM 8.6 MG/DL (8.5-10.1); CHLORIDE 105 MEQ/L (98-107); CREATININE 1.22 MG/DL (0.60-1.30); GLOMERULAR FILTRATION RATE 59 ML/MIN (>89); GLUCOSE,RANDOM 157 MG/DL (74-106); MAGNESIUM 2.1 MG/DL (1.5-2.5); SODIUM (NA) 139 MEQ/L (136-145)
[2017-10-12 14:59] LABS: ALKALINE PHOSPHATASE 96 U/L (45-117); TOTAL BILIRUBIN ADULT 0.3 MG/DL (0.2-1.0); TOTAL PROTEIN 7.3 GM/DL (6.4-8.2); TROPONIN I LESS THAN 0.02 NG/ML (0.02-0.05)
--- NOTE | 2017-10-12 15:26 | RADRPT ---
EXAM DATE/TIME: 10/12/2017 14:29 [facility] COMPARISON: CHEST SINGLE AP, October 28, 2015, 8:44. INDICATIONS : Chest pain. MEDICAL HISTORY : Hypertension. Diabetes mellitus type 2. Meiniere's disease. SURGICAL HISTORY : CABG. ENCOUNTER: Initial ACUITY: 1 day PAIN SCORE: 5/10 LOCATION: Bilateral chest FINDINGS: A single view of the chest demonstrates the lungs to be symmetrically aerated without evidence of mas s, infiltrate or effusion. The cardiomediastinal contours are unremarkable. Osseous structures are intact. CONCLUSION: Normal examination. 4 intact sternal wires. Clips suggest CABG. Epicardial pacer wire remains overlyi ng the left chest . Sandoval Baron MD on October 12, 2017 at 15:23 Board Certified Radiologist. This report was verified electronically.
[2017-10-12 15:29] LABS: PROTHROMBIN TIME - PATIENT 10.4 SEC (9.8-11.6)
[2017-10-12 15:33] LABS: D-DIMER 0.39 MG/L FEU (0.00-0.50)
--- NOTE | 2017-10-12 15:56 | PD ---
Physical Exam Date Seen by Provider: Oct 12, 2017 Time Seen by Provider: 15:00 Narrative I, Dr. Owen, have reviewed the advance practice practitioner's documentation and am in agreement, met with the patient face to face, made the diagnosis, and the medical decision making was done by me. *My assessment and Findings: Patient was seen and evaluated with PA, please see PA notes for further details. He has history of cardiac issues in the past, coming in complaining of chest discomfort, dyspnea on exertion. EKG did not show any dysrhythmias. Chest x-ray did not show any signs of acute processes. Lab work shows a negative cardiac enzyme. Considering his history, plan would be to admit for further evaluation of his chest pain. EKG shows NSR, no ST elevation or depression, and no arrhythmias. No significant T-wave inversions. Laboratory Tests Test 10/12/17 14:23 Mean Corpuscular Volume 78.0 FL (80.0-100.0) Mean Corpuscular Hemoglobin 25.9 PG (27.0-34.0) Monocytes (%) (Auto) 8.1 % (0.0-8.0) Blood Urea Nitrogen 26 MG/DL (7-18) Random Glucose 157 MG/DL (74-106) Estimat Glomerular Filtration Rate 59 ML/MIN (>89) Troponin I LESS THAN 0.02 NG/ML Last 24 hours Impressions Chest X-Ray 10/12/17 1417 Signed Impressions: Service Date/Time: Thursday, October 12, 2017 14:29 - CONCLUSION: Normal examination. 4 intact sternal wires. Clips suggest CABG. Epicardial pacer wire remains overlying the left chest . Sandoval Baron MD Data Data Last Documented VS Vital Signs Date Time Temp Pulse Resp B/P (MAP) Pulse Ox O2 Delivery O2 Flow Rate FiO2 10/12/17 15:39 80 16 138/68 (91) 98 Nasal Cannula 2.00 10/12/17 14:06 97.1 Orders Orders Electrocardiogram (10/12/17 ) Electrocardiogram (10/12/17 14:17) B-Type Natriuretic Peptide (10/12/17 14:17) Ckmb (Isoenzyme) Profile (10/12/17 14:17) Complete Blood Count With Diff (10/12/17 14:17) Comprehensive Metabolic Panel (10/12/17 14:17) D-Dimer (10/12/17 14:17) Magnesium (Mg) (10/12/17 14:17) Prothrombin Time / Inr (Pt) (10/12/17 14:17) Act Partial Throm Time (Ptt) (10/12/17 14:17) Troponin I (10/12/17 14:17) Lipase (10/12/17 14:17) Chest, Single Ap (10/12/17 14:17) Ecg Monitoring (10/12/17 14:17) Bilateral Bp Monitoring (10/12/17 14:17) Iv Access Insert/Monitor (10/12/17 14:17) Oximetry (10/12/17 14:17) Aspirin (Aspirin) (10/12/17 14:30) Sodium Chloride 0.9% Flush (Ns Flush) (10/12/17 14:30) Nitroglycerin Sl (Nitrostat Sl) (10/12/17 14:30) CKMB (10/12/17 14:23) CKMB% (10/12/17 14:23) Admit Order (Ed Use Only) (10/12/17 15:44) Labs Laboratory Tests Test 10/12/17 14:23 White Blood Count 7.5 TH/MM3 Red Blood Count 5.31 MIL/MM3 Hemoglobin 13.7 GM/DL Hematocrit 41.4 % Mean Corpuscular Volume 78.0 FL Mean Corpuscular Hemoglobin 25.9 PG Mean Corpuscular Hemoglobin Concent 33.2 % Red Cell Distribution Width 16.6 % Platelet Count 185 TH/MM3 Mean Platelet Volume 9.0 FL Neutrophils (%) (Auto) 59.7 % Lymphocytes (%) (Auto) 29.1 % Monocytes (%) (Auto) 8.1 % Eosinophils (%) (Auto) 2.2 % Basophils (%) (Auto) 0.9 % Neutrophils # (Auto) 4.5 TH/MM3 Lymphocytes # (Auto) 2.2 TH/MM3 Monocytes # (Auto) 0.6 TH/MM3 Eosinophils # (Auto) 0.2 TH/MM3 Basophils # (Auto) 0.1 TH/MM3 CBC Comment DIFF FINAL Differential Comment Prothrombin Time 10.4 SEC Prothromb Time International Ratio 1.0 RATIO Activated Partial Thromboplast Time 24.8 SEC D-Dimer Quantitative (PE/DVT) 0.39 MG/L FEU Blood Urea Nitrogen 26 MG/DL Creatinine 1.22 MG/DL Random Glucose 157 MG/DL Total Protein 7.3 GM/DL Albumin 3.7 GM/DL Calcium Level 8.6 MG/DL Magnesium Level 2.1 MG/DL Alkaline Phosphatase 96 U/L Aspartate Amino Transf (AST/SGOT) 15 U/L Alanine Aminotransferase (ALT/SGPT) 20 U/L Total Bilirubin 0.3 MG/DL Sodium Level 139 MEQ/L Potassium Level 3.9 MEQ/L Chloride Level 105 MEQ/L Carbon Dioxide Level 25.3 MEQ/L Anion Gap 9 MEQ/L Estimat Glomerular Filtration Rate 59 ML/MIN Total Creatine Kinase 110 U/L Creatine Kinase MB 1.5 NG/ML Troponin I LESS THAN 0.02 NG/ML B-Type Natriuretic Peptide 13 PG/ML Lipase 119 U/L [facility] Medical Record Reviewed: Yes Supervised Visit with ROZINA: Yes Diagnosis Primary Impression: Atypical chest pain Admitting Information Admitting Physician Requests: Admit Juan Alberto Owen MD Oct 12, 2017 15:56
--- NOTE | 2017-10-12 16:02 | PD ---
HPI Chief Complaint: Cardiac Complaint Time Seen by Provider: 14:12 Travel History International Travel<30 days: No Contact w/Intl Traveler<30days: No Traveled to known affect area: No History of Present Illness HPI 72-year-old male who presents to the ED for evaluation of left-sided chest pain. Patient has a significant history of CABG and stents in the past. Per patient he had an about 20 years ago. Per patient he follows with Dr. Lee for cardiology. He states that for the past 2 days he is not having significant chest pain and shortness of breath. Per patient the pain is constant. Nothing seems to make it better or worse. Per patient a discomfort 6 out of 10. Per patient he came here today because the pain did not improve. He continues to smoke and has a history of diabetes with insulin, high cholesterol, hypertension and a family history of heart disease. He states that the pain stays mainly on the left side of the chest and radiates to the shoulder. States that he has never had this before. Denies any injuries or trauma. Has not taken anything for this. States having some nausea but this appears to have improved per patient. No vomiting. No bowel movement or urinary issues. No recent travel. He is not sure if he takes any blood thinners and per patient she takes "a bunch of pills". PFSH Past Medical History Hx Anticoagulant Therapy: Yes (ASA 81 MG) Arthritis: Yes Asthma: No Autoimmune Disease: No Blood Disorders: No Bipolar Disorder: Yes Anxiety: Yes Depression: Yes Heart Rhythm Problems: Yes Cancer: No Cardiac Catheterization: Yes Cardiovascular Problems: Yes High Cholesterol: Yes Chemotherapy: No Chest Pain: Yes Congestive Heart Failure: Yes COPD: No Cerebrovascular Accident: No Coronary Artery Disease: Yes Diabetes: Yes Patient Takes Glucophage: No Diminished Hearing: No Endocrine: Yes Gastrointestinal Disorders: Yes (GERD, ULCER, CORODED ESOPHAGUS, HX OF ESOPHAGEAL STRICTURE/DILATION) GERD: No Glaucoma: No Genitourinary: Yes (ENLARGED PROSTATE) Headaches: No Hepatitis: No Hiatal Hernia: Yes Heparin Induced Thrombocytopen: No Hypertension: Yes Immune Disorder: No Implanted Vascular Access Dvce: No Kidney Stones: No Musculoskeletal: Yes (HX OF CERVICAL FUSION, BACK PROBLEMS, ARTHRITIS) Neurologic: Yes (MEINIERE'S DISEASE, BALANCE ISSUES) Psychiatric: Yes (PTSD) Reproductive: No Respiratory: No Immunizations Current: Yes Migraines: No Myocardial Infarction: Yes Radiation Therapy: No Renal Failure: No 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) Sickle Cell Disease: No Sleep Apnea: No Thyroid Disease: No Triglycerides - High: No Ulcer: No Tetanus Vaccination: < 5 Years Influenza Vaccination: Yes PNEUMOCCOCAL Vaccine (Year): 2009 ?: Not Past Surgical History Abdominal Surgery: Yes (HERNIA - 2006; GANGRENOUS CYST ABDOMEN - 2006) AICD: No Appendectomy: Yes Arteriovenous Shunt: No Body Medical Devices: PLATE IN NECK, L LEG SCREW AND PLATES--REMOVED Cardiac Surgery: Yes (CABG 5 VESSEL 2000) Cholecystectomy: Yes (04/29/14) Coronary Artery Bypass Graft: Yes (5 VESSEL BYPASS) Coronary Stent: Yes (X3) Ear Surgery: No Endocrine Surgery: No Eye Surgery: Yes (2007 CATARACTS BILATERALLY) Genitourinary Surgery: Yes (TURP) Gynecologic Surgery: No Hysterectomy: No Insulin Pump: No Joint Replacement: No Neurologic Surgery: No Oral Surgery: Yes Pacemaker: Yes (wiring for pacemaker, but pt states that they never actually put it in) Thoracic Surgery: Yes (SEE CARDIAC SURGERY) Tonsillectomy: Yes Other Surgery: Yes (LEFT LEG R/T INJURY) Social History Alcohol Use: Yes (2X WEEKLY) Tobacco Use: No (0.5 PPD) Substance Use: No Allergies-Medications (Allergen,Severity, Reaction): Coded Allergies: lisinopril (Unverified Allergy, Severe, Edema, 10/12/17) MRI PRECAUTION (Verified Adverse Reaction, Severe, PACER LEAD IN CHEST~ DR. GARCIA~LRS~06/26/14, 10/12/17) acetaminophen (Unverified Adverse Reaction, Intermediate, ANXIETY, 10/12/17 ) hydrocodone (Unverified Adverse Reaction, Intermediate, ANXIETY, 10/12/17) Reported Meds & Prescriptions Reported Meds & Active Scripts Active Reported Probiotic (Lactobacillus Acidophilus) 1 Cap Cap 1 Cap PO TIDAC Ocuflox Opth Drops (Ofloxacin Opth Drops) 0.3 % Drops 1 Drop EACH EYE QID Citracal + D3 Maximum (Calcium Citrate-Vitamin D) 315-250 Mg-Unit Tab 1 Tab PO BID Metamucil Smooth Texture (Psyllium Hydrophilic Mucilloid) 28.3 % Pow 1 Scoop PO TID PRN 1 rounded TEASPOON in 8 oz of liquid at the first sign of irregularity. Melatonin 5 Mg Tab 5 Mg PO HS Trazodone (Trazodone HCl) 50 Mg Tab 50 Mg PO HS Norvasc (Amlodipine Besylate) 5 Mg Tab 5 Mg PO DAILY Aspir-81 (Aspirin) 81 Mg Tabdr 81 Mg PO DAILY Crestor (Rosuvastatin Calcium) 20 Mg Tab 20 Mg PO DAILY Alfuzosin HCl ER (Alfuzosin HCl) 10 Mg Tab 10 Mg PO HS Tanzeum 4-Pack Inj (Albiglutide) 50 Mg Pfpen 50 Mg SQ Q7D Lantus Inj (Insulin Glargine) 1,000 Unit/10 Ml Vial 35 Units SQ HS Novolog Inj (Insulin Aspart) 100 Unit/Ml Inj 20 Units SQ DIRECTED Zack NATARAJAN (Duloxetine HCl) 60 Mg Capdr 60 Mg PO DAILY Review of Systems Except as stated in HPI: all other systems reviewed are Neg Physical Exam Narrative GENERAL: SKIN: Warm and dry. HEAD: Atraumatic. Normocephalic. EYES: Pupils equal and round. No scleral icterus. No injection or drainage. ENT: No nasal bleeding or discharge. Mucous membranes pink and moist. Tongue is midline. No uvula deviation. NECK: Trachea midline. No JVD. CARDIOVASCULAR: Regular rate and rhythm. No murmurs, S3, S4. RESPIRATORY: No accessory muscle use. Clear to auscultation. Breath sounds equal bilaterally. GASTROINTESTINAL: Abdomen soft, non-tender, nondistended. Hepatic and splenic margins not palpable. MUSCULOSKELETAL: Extremities without clubbing, cyanosis, or edema. No obvious deformities. Full range of motion of the upper and lower extremities bilaterally. 2+ pulses bilaterally. NEUROLOGICAL: Awake and alert. No obvious cranial nerve deficits. Motor grossly within normal limits. Five out of 5 muscle strength in the arms and legs. Normal speech. PSYCHIATRIC: Appropriate mood and affect; insight and judgment normal. Data Data Last Documented VS Vital Signs Date Time Temp Pulse Resp B/P (MAP) Pulse Ox O2 Delivery O2 Flow Rate FiO2 10/12/17 15:39 80 16 138/68 (91) 98 Nasal Cannula 2.00 10/12/17 14:06 97.1 Orders Orders Electrocardiogram (10/12/17 ) Electrocardiogram (10/12/17 14:17) B-Type Natriuretic Peptide (10/12/17 14:17) Ckmb (Isoenzyme) Profile (10/12/17 14:17) Complete Blood Count With Diff (10/12/17 14:17) Comprehensive Metabolic Panel (10/12/17 14:17) D-Dimer (10/12/17 14:17) Magnesium (Mg) (10/12/17 14:17) Prothrombin Time / Inr (Pt) (10/12/17 14:17) Act Partial Throm Time (Ptt) (10/12/17 14:17) Troponin I (10/12/17 14:17) Lipase (10/12/17 14:17) Chest, Single Ap (10/12/17 14:17) Ecg Monitoring (10/12/17 14:17) Bilateral Bp Monitoring (10/12/17 14:17) Iv Access Insert/Monitor (10/12/17 14:17) Oximetry (10/12/17 14:17) Aspirin (Aspirin) (10/12/17 14:30) Sodium Chloride 0.9% Flush (Ns Flush) (10/12/17 14:30) Nitroglycerin Sl (Nitrostat Sl) (10/12/17 14:30) CKMB (10/12/17 14:23) CKMB% (10/12/17 14:23) Admit Order (Ed Use Only) (10/12/17 15:44) Labs Laboratory Tests Test 10/12/17 14:23 White Blood Count 7.5 TH/MM3 Red Blood Count 5.31 MIL/MM3 Hemoglobin 13.7 GM/DL Hematocrit 41.4 % Mean Corpuscular Volume 78.0 FL Mean Corpuscular Hemoglobin 25.9 PG Mean Corpuscular Hemoglobin Concent 33.2 % Red Cell Distribution Width 16.6 % Platelet Count 185 TH/MM3 Mean Platelet Volume 9.0 FL Neutrophils (%) (Auto) 59.7 % Lymphocytes (%) (Auto) 29.1 % Monocytes (%) (Auto) 8.1 % Eosinophils (%) (Auto) 2.2 % Basophils (%) (Auto) 0.9 % Neutrophils # (Auto) 4.5 TH/MM3 Lymphocytes # (Auto) 2.2 TH/MM3 Monocytes # (Auto) 0.6 TH/MM3 Eosinophils # (Auto) 0.2 TH/MM3 Basophils # (Auto) 0.1 TH/MM3 CBC Comment DIFF FINAL Differential Comment Prothrombin Time 10.4 SEC Prothromb Time International Ratio 1.0 RATIO Activated Partial Thromboplast Time 24.8 SEC D-Dimer Quantitative (PE/DVT) 0.39 MG/L FEU Blood Urea Nitrogen 26 MG/DL Creatinine 1.22 MG/DL Random Glucose 157 MG/DL Total Protein 7.3 GM/DL Albumin 3.7 GM/DL Calcium Level 8.6 MG/DL Magnesium Level 2.1 MG/DL Alkaline Phosphatase 96 U/L Aspartate Amino Transf (AST/SGOT) 15 U/L Alanine Aminotransferase (ALT/SGPT) 20 U/L Total Bilirubin 0.3 MG/DL Sodium Level 139 MEQ/L Potassium Level 3.9 MEQ/L Chloride Level 105 MEQ/L Carbon Dioxide Level 25.3 MEQ/L Anion Gap 9 MEQ/L Estimat Glomerular Filtration Rate 59 ML/MIN Total Creatine Kinase 110 U/L Creatine Kinase MB 1.5 NG/ML Troponin I LESS THAN 0.02 NG/ML B-Type Natriuretic Peptide 13 PG/ML Lipase 119 U/L MDM Medical Decision Making Medical Screen Exam Complete: Yes Emergency Medical Condition: Yes Medical Record Reviewed: Yes Interpretation(s) EKG shows sinus rhythm with no sign of acute ischemia or arrhythmia. Read by me and attending. Troponin and CK-MB negative. Coags negative. D-dimer negative. CBC & BMP Diagram 10/12/17 14:23 Total Protein 7.3, Albumin 3.7, Calcium Level 8.6, Magnesium Level 2.1, Alkaline Phosphatase 96, Aspartate Amino Transf (AST/SGOT) 15, Alanine Aminotransferase (ALT/SGPT) 20, Total Bilirubin 0.3 Last Impressions Chest X-Ray 10/12/17 1417 Signed Impressions: Service Date/Time: Thursday, October 12, 2017 14:29 - CONCLUSION: Normal examination. 4 intact sternal wires. Clips suggest CABG. Epicardial pacer wire remains overlying the left chest . Sandoval Baron MD Differential Diagnosis Chest pain versus atypical chest pain versus pulmonary embolism versus ACS versus coronary artery disease versus a typical chest pain Narrative Course 72-year-old male that presents to the ED for evaluation of chest pain. Patient has a significant history of heart disease and is concerning for heart. Labs and imaging were ordered. Labs and imaging were essentially unremarkable. Patient was given aspirin nitroglycerin with improvement of chest pain currently he is completely chest pain-free. Shortness of breath has improved as well. Because the patient's medical history and history of heart disease I do recommend admission for further eval by cardiology. Case discussed with Dr. Rivera who recommends the patient admitted to the chest pain center. Patient agrees with this. Patient was admitted to chest pain center by me. Diagnosis Primary Impression: Chest pain in adult Admitting Information Admitting Physician Requests: Observation Douglas Feliciano Oct 12, 2017 16:02
[2017-10-12] MEDS ORDERED: ACETAMINOPHEN 500 MG CPLT PO PRN (16:30)
[2017-10-12] MEDS ORDERED: ONDANSETRON HCL 4 MG/2 ML VIAL IV PUSH PRN (16:30)
[2017-10-12] MEDS ORDERED: DEXTROSE 50% IN WATER 50 ML VIAL(D50) IV PUSH PRN (16:45)
[2017-10-12] MEDS ORDERED: GLUCAGON 1 MG/ML VIAL OTHER PRN (16:45)
--- NOTE | 2017-10-12 16:50 | HHI.HP ---
[facility] Primary Care Physician Ngozi Yoo MD Chief Complaint Chest pain History of Present Illness This is a 72-year-old male with history of CAD with a 5 vessel bypass, hypertension, hyperlipidemia, diabetes that presents to ED via private vehicle with a complaint of 2 weeks of intermittent chest discomforts that radiates into the left shoulder. States is random. Found nothing in particular bring on the discomfort. He gets fatigue with it. He gets short of breath with it. Sometimes gets nauseous with the. Denies diaphoresis with it. Almost all the episodes lasted about 10-15 minutes which he states he had at least one a day over the last 2 weeks however this morning it lasted about an hour. He took nothing for the discomfort. Found nothing to worsen or improve it. He did not call his rfid analyst. He follows Dr. Chaudhry and last saw him he believes a couple months ago however I spoke with the office staff he was last seen in May and his last stress test was May 05, 2017 and was nonischemic with an EF of 47%. Also upon reviewing records, patient had a heart catheterization the year following his bypass. He revealed that all grafts were patent. He states he has not had a heart catheterization since. Currently denies chest discomfort. States the discomfort is not similar to the discomfort that led up to his bypass. Denies recent travel. Denies fevers or chills. Voices compliance with his medications. Review of Systems General: Patient denies fevers, chills, and recent travel. HEENT: Patient denies headache, sore throat, difficulty swallowing. Cardiovascular: Has the chest discomfort as mentioned above. Denies sensation of heart beating rapidly or irregularly. No syncope. Denies diaphoresis. Respiratory: He has been short of breath. Denies inspirational chest discomfort. Denies coughing wheezing or hemoptysis. GI: Occasionally nauseated. Patient denies, vomiting, diarrhea, abdominal pain , bloody stools. Musculoskeletal: Patient denies joint pain or edema. Denies calf pain or edema. Neurovascular: Patient denies numbness, tingling, weakness in extremities. Denies headache. Endocrine: Denies polyuria and polydipsia. Hematologic: Denies easy bruising. Skin: Denies rash or itching. Past Family Social History Allergies: Coded Allergies: lisinopril (Unverified Allergy, Severe, Edema, 10/12/17) MRI PRECAUTION (Verified Adverse Reaction, Severe, PACER LEAD IN CHEST~ DR. GARCIA~LRS~06/26/14, 10/12/17) acetaminophen (Unverified Adverse Reaction, Intermediate, ANXIETY, 10/12/17 ) hydrocodone (Unverified Adverse Reaction, Intermediate, ANXIETY, 10/12/17) Past Medical History CAD with a 5 vessel [place] [address] Garcia. Hypertension, hyperlipidemia , diabetes, BPH, and continues to have tobacco abuse. Past Surgical History 5 vessel bypass in 2008. Cardiac catheterization 2009 without intervention. Reported Medications Reported Meds & Active Scripts Active Reported Probiotic (Lactobacillus Acidophilus) 1 Cap Cap 1 Cap PO TIDAC Ocuflox Opth Drops (Ofloxacin Opth Drops) 0.3 % Drops 1 Drop EACH EYE QID Citracal + D3 Maximum (Calcium Citrate-Vitamin D) 315-250 Mg-Unit Tab 1 Tab PO BID Metamucil Smooth Texture (Psyllium Hydrophilic Mucilloid) 28.3 % Pow 1 Scoop PO TID PRN 1 rounded TEASPOON in 8 oz of liquid at the first sign of irregularity. Melatonin 5 Mg Tab 5 Mg PO HS Trazodone (Trazodone HCl) 50 Mg Tab 50 Mg PO HS Norvasc (Amlodipine Besylate) 5 Mg Tab 5 Mg PO DAILY Aspir-81 (Aspirin) 81 Mg Tabdr 81 Mg PO DAILY Crestor (Rosuvastatin Calcium) 20 Mg Tab 20 Mg PO DAILY Alfuzosin HCl ER (Alfuzosin HCl) 10 Mg Tab 10 Mg PO HS Tanzeum 4-Pack Inj (Albiglutide) 50 Mg Pfpen 50 Mg SQ Q7D Lantus Inj (Insulin Glargine) 1,000 Unit/10 Ml Vial 35 Units SQ HS Novolog Inj (Insulin Aspart) 100 Unit/Ml Inj 20 Units SQ DIRECTED Zack NATARAJAN (Duloxetine HCl) 60 Mg Capdr 60 Mg PO DAILY Active Ordered Medications Current Medications Medications (Trade) Dose Ordered Sig/Carolyn Route Start Time Stop Time Status Last Admin (NS Flush) 2 ml UNSCH PRN IVF 10/12/17 14:30 (Tylenol) 500 mg Q4H PRN PO 10/12/17 16:30 UNV (Zofran Inj) 4 mg Q6H PRN IV PUSH 4/25/18 16:30 UNV (Protonix) 40 mg DAILY PO 10/12/17 16:30 UNV (Aspirin) 325 mg DAILY PO 10/13/17 09:00 UNV (NovoLOG SUPPLEMENTAL SCALE) 1 ACHS SLIDING SCALE SQ 10/12/17 17:00 UNV (D50w (Vial) Inj) 50 ml UNSCH PRN IV PUSH 10/12/17 16:45 UNV (Glucagon Inj) 1 mg UNSCH PRN OTHER 10/12/17 16:45 UNV Family History There is family history of CAD. Social History Patient continues to smoke. Has been smoking one half pack of cigarettes daily for last 2 months. States he had quit for 20 years prior to that. Has occasional glass of wine. Also uses marijuana occasionally. Physical Exam Vital Signs Vital Signs Date Time Temp Pulse Resp B/P (MAP) Pulse Ox O2 Delivery O2 Flow Rate FiO2 10/12/17 15:39 80 16 138/68 (91) 98 Nasal Cannula 2.00 10/12/17 15:38 98 Nasal Cannula 2.00 10/12/17 15:05 17 10/12/17 14:56 83 22 125/71 (89) 93 Room Air 10/12/17 14:18 97 Room Air 10/12/17 14:06 97.1 94 18 139/65 (89) 96 Physical Exam GENERAL: This is a well-nourished, well-developed patient, in no apparent distress. Patient speaks in clear complete sentences. Patient is pleasant. HEENT: Head is atraumatic and normocephalic. Neck is supple without lymphadenopathy and trachea is midline. No JVD or carotid bruits. CARDIOVASCULAR: Regular rate and rhythm without murmurs, gallops, or rubs. RESPIRATORY: Clear to auscultation. Breath sounds equal bilaterally. No wheezes , rales, or rhonchi. Well-healed midline scar from sternotomy. Chest wall is nontender. No use of accessory muscles. GASTROINTESTINAL: Abdomen is nontender, nondistended. Abdomen soft. No obvious pulsatile mass or bruit. No CVA tenderness. Strong femoral pulses bilaterally. Normal bowel sounds in all quadrants. MUSCULOSKELETAL: Patient is moving upper and lower extremities freely. No calf tenderness or edema, no Homans sign. Strong pulses in upper and lower extremities. NEUROLOGICAL: Patient is alert and oriented. Cranial nerves 2-12 are grossly intact. No focal deficits and speech is clear. SKIN: No rash and turgor is normal. Laboratory Laboratory Tests Test 10/12/17 14:23 White Blood Count 7.5 Red Blood Count 5.31 Hemoglobin 13.7 Hematocrit 41.4 Mean Corpuscular Volume 78.0 Mean Corpuscular Hemoglobin 25.9 Mean Corpuscular Hemoglobin Concent 33.2 Red Cell Distribution Width 16.6 Platelet Count 185 Mean Platelet Volume 9.0 Neutrophils (%) (Auto) 59.7 Lymphocytes (%) (Auto) 29.1 Monocytes (%) (Auto) 8.1 Eosinophils (%) (Auto) 2.2 Basophils (%) (Auto) 0.9 Neutrophils # (Auto) 4.5 Lymphocytes # (Auto) 2.2 Monocytes # (Auto) 0.6 Eosinophils # (Auto) 0.2 Basophils # (Auto) 0.1 CBC Comment DIFF FINAL Differential Comment Prothrombin Time 10.4 Prothromb Time International Ratio 1.0 Activated Partial Thromboplast Time 24.8 D-Dimer Quantitative (PE/DVT) 0.39 Blood Urea Nitrogen 26 Creatinine 1.22 Random Glucose 157 Total Protein 7.3 Albumin 3.7 Calcium Level 8.6 Magnesium Level 2.1 Alkaline Phosphatase 96 Aspartate Amino Transf (AST/SGOT) 15 Alanine Aminotransferase (ALT/SGPT) 20 Total Bilirubin 0.3 Sodium Level 139 Potassium Level 3.9 Chloride Level 105 Carbon Dioxide Level 25.3 Anion Gap 9 Estimat Glomerular Filtration Rate 59 Total Creatine Kinase 110 Creatine Kinase MB 1.5 Troponin I LESS THAN 0.02 B-Type Natriuretic Peptide 13 Lipase 119 Result Diagram: 10/12/17 1423 10/12/17 1423 Imaging Last 48 hours Impressions Chest X-Ray 10/12/17 1417 Signed Impressions: Service Date/Time: Thursday, October 12, 2017 14:29 - CONCLUSION: Normal examination. 4 intact sternal wires. Clips suggest CABG. Epicardial pacer wire remains overlying the left chest . Sandoval Baron MD Course Initial EKG is sinus rhythm rate of [address] segment depressions or elevations. There are nonspecific T-wave changes. Caprini VTE Risk Assessment Caprini VTE Risk Assessment: Mod/High Risk (score >= 2) Caprini Risk Assessment Model Point Value = 1 Point Value = 2 Point Value = 3 Point Value = 5 Age 41-60 Minor surgery BMI > 25 kg/m2 Swollen legs Varicose veins or History of unexplained or recurrent spontaneous Oral contraceptives or hormone replacement Sepsis (< 1 month) Serious lung disease, including pneumonia (< 1 month) Abnormal pulmonary function Acute myocardial infarction Congestive heart failure (< 1 month) History of inflammatory bowel disease Medical patient at bed rest Age 61-74 Arthroscopic surgery Major open surgery (> 45 min) Laparoscopic surgery (> 45 min) Malignancy Confined to bed (> 72 hours) Immobilizing plaster cast Central venous access Age >= 75 History of VTE Family history of VTE Factor V Leiden Prothrombin [id number] Lupus anticoagulant Anticardiolipin antibodies Elevated serum homocysteine Heparin-induced thrombocytopenia Other congenital or acquired thrombophilia Stroke (< 1 month) Elective arthroplasty Hip, pelvis, or leg fracture Acute spinal cord injury (< 1 month) Prophylaxis Regimen Total Risk Factor Score Risk Level Prophylaxis Regimen 0-1 Low Early ambulation 2 Moderate Order ONE of the following: *Sequential Compression Device (SCD) *Heparin 5000 units SQ BID 3-4 Higher Order ONE of the following medications: *Heparin 5000 units SQ TID *Enoxaparin/Lovenox 40 mg SQ daily (WT < 150 kg, CrCl > 30 mL/min) *Enoxaparin/Lovenox 30 mg SQ daily (WT < 150 kg, CrCl > 10-29 mL/min) *Enoxaparin/Lovenox 30 mg SQ BID (WT < 150 kg, CrCl > 30 mL/min) AND/OR *Sequential Compression Device (SCD) 5 or more Highest Order ONE of the following medications: *Heparin 5000 units SQ TID (Preferred with Epidurals) *Enoxaparin/Lovenox 40 mg SQ daily (WT < 150 kg, CrCl > 30 mL/min) *Enoxaparin/Lovenox 30 mg SQ daily (WT < 150 kg, CrCl > 10-29 mL/min) *Enoxaparin/Lovenox 30 mg SQ BID (WT < 150 kg, CrCl > 30 mL/min) AND *Sequential Compression Device (SCD) Assessment and Plan Assessment and Plan * Chest pain: Patient will continue to have serial cardiac enzymes and EKGs for ruling out purposes. He will be seen by Dr. Daniel of cardiology in the chest pain center and will likely have a Lexiscan in the morning. Patient would be discharged home with a stress test is nonischemic with instructions to follow- up with PCP and his rfid analyst. We will resume his medications. Return to ED for interval issues. * Hypertension: Continue medication. * CAD: Likely to be reassessed with stress testing. He will need to follow-up with his rfid analyst. * Diabetes: Patient will have sliding scale insulin coverage while in chest pain center. Diabetic diet. Resume medication at discharge. * Hyperlipidemia: Continue medication. * Tobacco abuse: Patient has been counseled on the importance of smoking cessation. Patient is stable at this time. He is agreeable to this plan. Christopher Chawla Oct 12, 2017 16:50
[2017-10-12] MEDS ORDERED: cloNIDine HCL 0.1 MG TAB PO PRN (17:00)
[2017-10-12] MEDS ORDERED: PRAZ1CAP PO (17:09)
[2017-10-12] MEDS ORDERED: OMEP40CA2 (17:09)
[2017-10-12] MEDS ORDERED: ALPRAZolam 0.25 MG TAB PO PRN (17:15)
[2017-10-12 18:11] LABS: TROPONIN I LESS THAN 0.02 NG/ML (0.02-0.05)
[2017-10-12] MEDS: PANTOPRAZOLE SOD 40 MG DELAYED RELEASE TAB PO SCH (19:51)
[2017-10-12] MEDS: INSULIN ASPART SUPPLEMENTAL SCALE SQ SCH ×2 (19:52→21:34)
[2017-10-12] MEDS ORDERED: MELATONIN 5 MG TAB PO SCH (21:00)
[2017-10-12] MEDS ORDERED: PRAZOSIN HCL 1 MG CAP PO SCH (21:00)
[2017-10-12 21:26] LABS: TROPONIN I LESS THAN 0.02 NG/ML (0.02-0.05)
[2017-10-13] VITALS: PULSE 73
[2017-10-13 01:03] VITALS: BP 129/72; PULSE 77; RESP 16; TEMP 98.4; O2SAT 95
[2017-10-13 04:00] VITALS: PULSE 77
[2017-10-13 04:21] VITALS: BP 137/79; PULSE 75; RESP 16; TEMP 98.1; O2SAT 97
[2017-10-13 07:44] VITALS: BP 140/73; PULSE 75; RESP 18; TEMP 97.6; O2SAT 96
[2017-10-13] MEDS: INSULIN ASPART SUPPLEMENTAL SCALE SQ SCH ×3 (08:00→14:50)
[2017-10-13] MEDS: PANTOPRAZOLE SOD 40 MG DELAYED RELEASE TAB PO SCH (08:10)
[2017-10-13 08:41] VITALS: O2SAT 97
[2017-10-13] MEDS ORDERED: ASPIRIN 325 MG TAB PO SCH (09:00)
[2017-10-13] MEDS ORDERED: ATORVASTATIN 80 MG TAB PO SCH (09:00)
[2017-10-13] MEDS ORDERED: amLODIPine BESYLATE 5 MG TAB PO SCH (09:00)
[2017-10-13] MEDS ORDERED: DULoxetine HCl DR 60 MG CAP PO SCH (09:00)
[2017-10-13] MEDS ORDERED: REGADENOSON INJ 0.4 MG/5 ML SYR ONE (12:14)
--- NOTE | 2017-10-13 12:35 | EKG ---
Date Performed: 10/12/2017 Time Performed: 22:42:39 PTAGE: 72 years EKG: Sinus rhythm NONSPECIFIC T-WAVE ABNORMALITY BORDERLINE ECG PREVIOUS TRACING : 10/12/2017 14.18 Since previous tracing, no significant change noted DOCTOR: Christiano Daniel Interpretating Date/Time 10/13/2017 12:34:40
--- NOTE | 2017-10-13 12:37 | EKG ---
Date Performed: 10/12/2017 Time Performed: 20:42:50 PTAGE: 72 years EKG: Sinus rhythm NONSPECIFIC T-WAVE ABNORMALITY BORDERLINE ECG INTERPRETATION BASED ON A DEFAULT AGE OF 40 YEARS Sinc e PREVIOUS TRACING , no significant change noted DOCTOR: Christiano Daniel Interpretating Date/Time 10/13/2017 12:35:58
--- NOTE | 2017-10-13 12:40 | EKG ---
Date Performed: 10/12/2017 Time Performed: 14:18:48 PTAGE: 72 years EKG: Sinus rhythm NONSPECIFIC T-WAVE ABNORMALITY BORDERLINE ECG Compared to PREVIOUS TRACING , T wave changes are new. DOCTOR: Christiano Daniel Interpretating Date/Time 10/13/2017 12:38:05
[2017-10-13] MEDS ORDERED: AMINOPHYLLINE INJ 500 MG/20 ML VIAL ONE (13:12)
--- NOTE | 2017-10-13 13:57 | RADRPT ---
EXAM DATE/TIME: 10/13/2017 11:49 [facility] COMPARISON: No previous studies available for comparison. INDICATIONS : Angina. DOSE: 27.3 mCi Tc99m Myoview at stress. 8.5 mCi Tc99m Myoview at rest. 0.4 mg Lexiscan STRESS SYMPTOMS: Chest pain, dyspnea, and nausea. MEDICATIONS: 1.) 100 mg Aminophylline IV EJECTION FRACTION: 56% MEDICAL HISTORY : Diabetes mellitus type 1. Hypertension. CABG, Meiniers Disease SURGICAL HISTORY : CABG Heart Cath ENCOUNTER: Initial ACUITY: 2 weeks PAIN SCALE: 3/10 LOCATION: Left chest Left shoulder TECHNIQUE: The patient underwent pharmacologic stress with infusion of prescribed dose. Continuous ECG tracing was monitored during stress. Gated SPECT imaging was performed after stress and conventional SPECT i maging was performed at rest. The examination was performed on a SPECT/CT scanner, both attenuation and non-corrected datasets were reviewed. FINDINGS: DISTRIBUTION: The maximum perfused segment at stress is in the anterior wall. PERFUSION STUDY: The pattern of perfusion at stress shows scattered areas of any 10% redistribution in the lateral and anteroseptal jaimes but no significant reversibility to suggest ischemia. Fixed diminished perfusion to the apex. GATED STUDY: Some hypokinesis of the septum. Wall motion is otherwise intact. CONCLUSION: 1. No scintigraphic findings of ischemia. 2. Fixed diminished perfusion to the apex may represent apical thinning or old apical infarct. 3. Septal hypokinesis with a preserved ejection fraction 56%. RISK CATEGORY: Low (<1% Annual Mortality Rate) Pedro Melvin MD on October 13, 2017 at 13:51 Board Certified Radiologist. This report was verified electronically.
--- NOTE | 2017-10-13 14:07 | HHI.DCPOC ---
Discharge Care Plan Diagnosis: (1) Chest pain (2) CAD (coronary artery disease) (3) Hx of CABG (4) Tobacco abuse (5) Hyperlipidemia (6) HTN (hypertension) (7) DM (diabetes mellitus) Goals to Promote Your Health * To prevent worsening of your condition and complications * To maintain your health at the optimal level Directions to Meet Your Goals Take your medications as prescribed Follow your dietary instruction Follow activity as directed Keep your appointments as scheduled Take your immunizations and boosters as scheduled If your symptoms worsen call your PCP, if no PCP go to Urgent Care Center or Emergency Room Smoking is Dangerous to Your Health. Avoid second hand smoke Call the 24-hour hour crisis hotline for domestic abuse at [facility] Chawla Oct 13, 2017 14:07
--- NOTE | 2017-10-14 12:48 | TR ---
Date Performed: 10/13/2017 Time Performed: 12:15:30 DOCTOR: Christiano Daniel DRUG LIST: CLINICAL HISTORY: REASON FOR TEST: REASON FOR ENDING: OBSERVATION: CONCLUSION: COMMENTS: Lexiscan stress test was performed under standard four minute protocol. Radionuclide was injected one minute prior to ending the test. No electrocardiographic abormalities were present t o suggest ischemia. Nuclear imaging and interpretation are pending.
== END 2017-10-13 16:15 | disposition home or self-care (01) ==
LOC: NEPE 13:56 → NEDA 15:46 → NEPHCDU 17:33
PROVIDERS: ADMIT Internal Medicine Cardiovascular Disease; ATTEND Internal Medicine Cardiovascular Disease
DX: R07.89 Other chest pain (principal); I25.10 Atherosclerotic heart disease of native coronary artery without angina pectoris; I10 Essential (primary) hypertension; E78.5 Hyperlipidemia, unspecified; E78.00 Pure hypercholesterolemia, unspecified; E11.9 Type 2 diabetes mellitus without complications; F12.90 Cannabis use, unspecified, uncomplicated; F17.200 Nicotine dependence, unspecified, uncomplicated; F31.9 Bipolar disorder, unspecified; F43.10 Post-traumatic stress disorder, unspecified; I25.2 Old myocardial infarction; K21.9 Gastro-esophageal reflux disease without esophagitis; N40.0 Benign prostatic hyperplasia without lower urinary tract symptoms; Z79.4 Long term (current) use of insulin; Z79.82 Long term (current) use of aspirin; Z95.5 Presence of coronary angioplasty implant and graft; Z95.1 Presence of aortocoronary bypass graft; Z98.1 Arthrodesis status; Z82.49 Family history of ischemic heart disease and other diseases of the circulatory system
CPT/HCPCS: 71045; 78452; 80053; 82550; 82552; 82948; 83690; 83735; 83880; 84484; 85025; 85379; 85610; 85730; 93005; 93017; 99285; A9502; G0378; J0280; J1815; J2785

== ENCOUNTER 2018-05-25 05:32 | Inpatient (IN) ==
[2018-05-25] MEDS ORDERED: Morphine Inj 4 MG/ML Vial IV.PUSH ONE ×2 (05:54→06:50)
--- NOTE | 2018-05-25 06:31 | ED ---
HPI General Chief complaint: Pain: Chronic Stated complaint: Medical Time Seen by Provider: 05/25/18 05:42 Source: patient Mode of arrival: wheelchair Limitations: no limitations History of Present Illness HPI narrative: Patient is a chronic back pain patient who is been seeing pain management for the past year. Patient is also been to our ER multiple times for chronic low back pain along with other medical problems. Patient states that 2 days ago he received an epidural lidocaine block from his pain doctor on top of narcotic pain medications and is not been able to get any relief. Patient states the pain is 10 out of 10 and now is having numbness shooting down to his left lower extremity. Patient still has normal bowel and bladder function. Patient's pain doctor told him that if he continued to have pain or worsening symptoms to come to the ER because he needs a surgeon. Previous CTs of lower lumbar spine are normal. MD complaint: low back pain Onset (ago): unknown (chronic years) Location: back Radiation: back Severity: moderate Severity scale (1-10): 6 Quality: aching Relieving factors: none Exacerbating factors: movement Associated symptoms: Denies chest pain, cough, diaphoresis, fever/chills and loss of appetite Treatments prior to arrival: Reports other (hydrocodone and epidural nerve block ) Related Data Home Medications Medication Instructions Recorded Confirmed Lantus U-100 Insulin 25 units SUB-Q HS 01/28/18 05/25/18 amlodipine 10 mg PO DAILY 01/28/18 05/25/18 aspirin [Aspir-81] 81 mg PO DAILY 01/28/18 05/25/18 duloxetine 60 mg PO DAILY 01/28/18 05/25/18 empagliflozin 25 mg PO DAILY 01/28/18 05/25/18 insulin aspart U-100 [Novolog 25 units SUB-Q TID 01/28/18 05/25/18 U-100 Insulin aspart] melatonin 6 mg PO HS 01/28/18 05/25/18 omeprazole 40 mg PO BID 01/28/18 05/25/18 prazosin 3 mg PO HS 01/28/18 05/25/18 rosuvastatin 40 mg PO DAILY 01/28/18 05/25/18 chlorthalidone 12.5 mg PO DAILY 04/29/18 05/25/18 turmeric 1 tab PO DAILY 04/29/18 insulin aspart U-100 [Novolog 10 unit SUBCUT AC LUNCH 05/25/18 05/25/18 U-100 Insulin aspart] Previous Rx's Medication Instructions Recorded magnesium citrate 150 ml PO DAILY PRN #296 ml 01/29/18 tramadol [Ultram] 50 mg PO Q6H PRN #12 tab 04/29/18 Allergies Allergy/AdvReac Type Severity Reaction Status Date / Time lisinopril Allergy Severe Edema Verified 05/25/18 05:39 MRI PRECAUTION AdvReac Severe PACER LEAD Uncoded 05/25/18 05:39 IN CHEST~DR. GARCIA~LRS~06/26/14 Review of Systems ROS: all other systems reviewed are negative [facility] Medical History Medical History Depression (Acute) Diabetes (Acute) FH: cholecystectomy (Acute) GERD (gastroesophageal reflux disease) (Acute) HTN (hypertension) (Acute) PTSD (post-traumatic stress disorder) (Acute) Surgical History Surgical History H/O neck surgery (Acute) History of appendectomy (Acute) History of cardiac cath (Acute) History of colon surgery (Acute) S/P CABG x 5 (Acute) Social History Social History Substance History: No History of Abuse Second Hand Smoke Exposure: Yes Smoking Status: Current every day smoker Tobacco Type: Cigarettes How Often Do You Have a Drink Containing Alcohol: 2 to 4 times a month Recent Travel in [facility] within the Last 8 Weeks: No Recent Out of Country Travel within the Last 8 Weeks: No Immunization History Tetanus Immunization: Unsure Exam Const General: anxious Nutritional Appearance: obese Orientation: alert, awake and oriented x3 HENMT Head: normocephalic and atraumatic Nose: no nasal discharge and no epistaxis Mouth: moist mucous membranes Eyes Sclera: normal sclerae Pupils: PERRL Neck Neck: trachea midline and no JVD Resp Effort & Inspection: no use of accessory muscles Auscultation: clear to auscultation bilaterally Cardio Rate: regular rate Rhythm: regular rhythm Heart Sounds: no murmurs GI Inspection: non-distended Palpation: soft, no hepatosplenomegaly and nontender Back/Spine/Pelvis Back: no CVA tenderness Thoracic/Lumbar Spine: lumbar spinal tenderness (tenderness to palpation throughout lumbar spine. Especially in paraspinal muscles left lumbar region) Skin General: dry skin (warm) Neuro General: alert and awake Cranial Nerves: other Speech: speech normal Motor: no movement abnormalities noted Sensory Exam: no sensory deficits noted Extrem General: normal to inspection, no clubbing, no cyanosis and no edema Psych Mood: congruent mood Affect: normal affect Judgment: judgment good Course Initial Documented Vital Signs Temperature 97.4 F L 05/25/18 05:36 Pulse Rate 83 05/25/18 05:36 Respiratory Rate 18 05/25/18 05:36 Blood Pressure 145/74 H 05/25/18 05:36 Pulse Oximetry 99 05/25/18 05:36 Last Documented Vital Signs Temperature 97.3 F L 05/26/18 04:00 Pulse Rate 97 H 05/26/18 04:00 Respiratory Rate 20 05/26/18 04:00 Blood Pressure 156/97 H 05/26/18 04:00 Pulse Oximetry 96 05/26/18 04:[address] [facility] Narrative Medical decision making narrative: Patient has lower lumbar spine tenderness to palpation.Patient is a chronic back pain patient who is been seeing pain management for the past year. Patient is also been to our ER multiple times for chronic low back pain along with other medical problems. Patient states that 2 days ago he received an epidural lidocaine block from his pain doctor on top of narcotic pain medications and is not been able to get any relief. Patient states the pain is 10 out of 10 and now is having numbness shooting down to his left lower extremity. Patient still has normal bowel and bladder function. Patient's pain doctor told him that if he continued to have pain or worsening symptoms to come to the ER because he needs a surgeon. Previous CTs of lower lumbar spine are normal. Physical exam is mostly unremarkable. Patient is neurovascularly intact. Patient received MRI of the lumbar spine along with basic labs and IV morphine. 0700: note. Patient was signed out to me, MRI is pending. 0730: MRI was canceled. Patient has wires inserted in his chest for pacemaker but pacemaker never was placed. Patient has severe pain has difficulty with ambulating sitting, can lay down on the right side only. 2 days ago he had pain management treatment done by Dr. Fajardo with no improvement. Patient has left leg numbness, chronic. No weakness in the legs, no urinary incontinence, no saddle anesthesia noted. Patient will be admitted to the hospital for pain control. Hospitalist called. CT lumbar spine ordered before admission. CAT scan shows worsening of the degenerative process of the lumbar spine, case discussed with neurosurgeon, admitted to medicine for intractable pain treatment. Medical Screen Exam Complete: Yes Emergency Medical Condition: Yes Lab Data Result diagrams: 05/26/18 06:20 05/25/18 06:21 Lab Results 05/25/18 05/25/18 05/25/18 Range/Units 06:21 06:21 06:21 WBC 9.2 (4.0-11.0) th/mm3 RBC 5.42 (4.50-5.90) mil/mm3 Hgb 13.8 (13.0-17.0) gm/dL Hct 42.3 (39.0-51.0) % MCV 78.0 L (80.0-100.0) fL MCH 25.4 L (27.0-34.0) pg MCHC 32.5 (32.0-36.0) % RDW 18.1 H (11.6-17.2) % Plt Count 212 (150-450) th/mm3 MPV 9.2 (7.0-11.0) fL Neut % (Auto) 80.8 H (16.0-70.0) % Lymph % (Auto) 13.1 (9.0-44.0) % [place] % (Auto) 5.7 (0.0-8.0) % Eos % (Auto) 0.0 (0.0-4.0) % Baso % (Auto) 0.4 (0.0-2.0) % Neut # (Auto) 7.4 (1.8-7.7) th/mm3 Lymph # (Auto) 1.2 (1.0-4.8) th/mm3 [place] # (Auto) 0.5 (0.0-0.9) th/mm3 Eos # (Auto) 0.0 (0.0-0.4) th/mm3 Baso # (Auto) 0.0 (0.0-0.2) th/mm3 WBC Differential . Differential Comment Auto diff final PT 10.0 (9.8-11.6) sec INR 1.0 Ratio APTT 22.9 L (23.4-31.7) sec Sodium 135 L (136-145) meq/L Potassium 3.7 (3.5-5.1) meq/L Chloride 98 (98-107) meq/L Carbon Dioxide 28.0 (21.0-32.0) meq/L Anion Gap 9 (5-15) meq/L BUN 27 H (7-18) mg/dL Creatinine 1.17 (0.60-1.30) mg/dL Estimated GFR 61 L (>89) mL/min POC Glucose (68-110) mg/dl Random Glucose 333 H (74-106) mg/dL Calcium 9.2 (8.5-10.1) mg/dL Total Bilirubin 0.4 (0.2-1.0) mg/dL AST 10 L (15-37) U/L ALT 19 (12-78) U/L Alkaline Phosphatase 75 (45-117) U/L Total Protein 7.4 (6.4-8.2) g/dL Albumin 3.8 (3.4-5.0) g/dL 05/25/18 05/25/18 05/25/18 Range/Units 14:29 17:33 20:00 WBC (4.0-11.0) th/mm3 RBC (4.50-5.90) mil/mm3 Hgb (13.0-17.0) gm/dL Hct (39.0-51.0) % MCV (80.0-100.0) fL MCH (27.0-34.0) pg MCHC (32.0-36.0) % RDW (11.6-17.2) % Plt Count (150-450) th/mm3 MPV (7.0-11.0) fL Neut % (Auto) (16.0-70.0) % Lymph % (Auto) (9.0-44.0) % [place] % (Auto) (0.0-8.0) % Eos % (Auto) (0.0-4.0) % Baso % (Auto) (0.0-2.0) % Neut # (Auto) (1.8-7.7) th/mm3 Lymph # (Auto) (1.0-4.8) th/mm3 [place] # (Auto) (0.0-0.9) th/mm3 Eos # (Auto) (0.0-0.4) th/mm3 Baso # (Auto) (0.0-0.2) th/mm3 WBC Differential Differential Comment PT (9.8-11.6) sec INR Ratio APTT (23.4-31.7) sec Sodium (136-145) meq/L Potassium (3.5-5.1) meq/L Chloride (98-107) meq/L Carbon Dioxide (21.0-32.0) meq/L Anion Gap (5-15) meq/L BUN (7-18) mg/dL Creatinine (0.60-1.30) mg/dL Estimated GFR (>89) mL/min POC Glucose 245 H 278 H 183 H (68-110) mg/dl Random Glucose (74-106) mg/dL Calcium (8.5-10.1) mg/dL Total Bilirubin (0.2-1.0) mg/dL AST (15-37) U/L ALT (12-78) U/L Alkaline Phosphatase (45-117) U/L Total Protein (6.4-8.2) g/dL Albumin (3.4-5.0) g/dL 05/26/18 Range/Units 06:20 WBC 9.3 (4.0-11.0) th/mm3 RBC 5.45 (4.50-5.90) mil/mm3 Hgb 14.0 (13.0-17.0) gm/dL Hct 42.4 (39.0-51.0) % MCV 77.9 L (80.0-100.0) fL MCH 25.7 L (27.0-34.0) pg MCHC 33.0 (32.0-36.0) % RDW 18.2 H (11.6-17.2) % Plt Count 203 (150-450) th/mm3 MPV 9.4 (7.0-11.0) fL Neut % (Auto) 74.0 H (16.0-70.0) % Lymph % (Auto) 19.1 (9.0-44.0) % [place] % (Auto) 6.7 (0.0-8.0) % Eos % (Auto) 0.1 (0.0-4.0) % Baso % (Auto) 0.1 (0.0-2.0) % Neut # (Auto) 6.9 (1.8-7.7) th/mm3 Lymph # (Auto) 1.8 (1.0-4.8) th/mm3 [place] # (Auto) 0.6 (0.0-0.9) th/mm3 Eos # (Auto) 0.0 (0.0-0.4) th/mm3 Baso # (Auto) 0.0 (0.0-0.2) th/mm3 WBC Differential . Differential Comment Auto diff final PT (9.8-11.6) sec INR Ratio APTT (23.4-31.7) sec Sodium (136-145) meq/L Potassium (3.5-5.1) meq/L Chloride (98-107) meq/L Carbon Dioxide (21.0-32.0) meq/L Anion Gap (5-15) meq/L BUN (7-18) mg/dL Creatinine (0.60-1.30) mg/dL Estimated GFR (>89) mL/min POC Glucose (68-110) mg/dl Random Glucose (74-106) mg/dL Calcium (8.5-10.1) mg/dL Total Bilirubin (0.2-1.0) mg/dL AST (15-37) U/L ALT (12-78) U/L Alkaline Phosphatase (45-117) U/L Total Protein (6.4-8.2) g/dL Albumin (3.4-5.0) g/dL Imaging Data Radiologist's impression: Lumbar Spine CT 05/25/18 08:24 CONCLUSION: 1. Severe degenerative disc disease at L5-S1 with a small left paracentral disc protrusion and containing gas. This finding is new and abuts the left S1 nerve root. There is no spinal canal stenosis at this level but there is moderate bilateral neural foraminal narrowing. 2. All of the remaining levels demonstrate stable changes, as above, without spinal canal stenosis. 3. Severe atherosclerotic disease. Discharge Plan Discharge Disposition Patient Disposition: ED Admit(ED Internal Use Only) Discharge Condition Condition: Fair Discharge Order Discharge Orders: ED Use Only Admit Order (Routine); Ordered 05/25/18 Ordered By: Sharad Dawson Discharge Details Diagnosis: Chronic pain, Left sciatic nerve pain Physicians Team ED Provider: Sharad Dawson ED Midlevel Provider: Tamara Lindsay Primary Care Provider: Ngozi Yoo Attending Provider: Lenin Quintero Other Providers: Avery Curiel ED Status: Left Department Discharge Information Discharge Date/Time: 05/25/18 15:05
[2018-05-25 06:50] LABS: Baso % (Auto) 0.4 % (0.0-2.0); Hematocrit 42.3 % (39.0-51.0); Hemoglobin 13.8 gm/dL (13.0-17.0); Lymph # (Auto) 1.2 th/mm3 (1.0-4.8); Lymph % (Auto) 13.1 % (9.0-44.0); Mean Corpuscular HGB Conc 32.5 % (32.0-36.0); Mean Corpuscular Hemoglobin 25.4 pg (27.0-34.0); Mean Platelet Volume 9.2 fL (7.0-11.0); Mono # (Auto) 0.5 th/mm3 (0.0-0.9); Mono % (Auto) 5.7 % (0.0-8.0); Neut # (Auto) 7.4 th/mm3 (1.8-7.7); Neut % (Auto) 80.8 % (16.0-70.0); Platelet Count 212 th/mm3 (150-450); Red Blood Count 5.42 mil/mm3 (4.50-5.90); Red Cell Distribution Width 18.1 % (11.6-17.2); White Blood Count 9.2 th/mm3 (4.0-11.0)
[2018-05-25 07:02] LABS: Activated Partial Thrombo Time 22.9 sec (23.4-31.7)
[2018-05-25 07:09] LABS: Albumin 3.8 g/dL (3.4-5.0); Anion Gap 9 meq/L (5-15); Aspartate Aminotransferase 10 U/L (15-37); Blood Urea Nitrogen 27 mg/dL (7-18); Calcium 9.2 mg/dL (8.5-10.1); Chloride 98 meq/L (98-107); Glomerular Filtration Rate 61 mL/min (>89); Glucose,Random 333 mg/dL (74-106); Potassium 3.7 meq/L (3.5-5.1); Sodium 135 meq/L (136-145)
[2018-05-25 07:10] LABS: Alanine Aminotransferase 19 U/L (12-78)
[2018-05-25 07:12] LABS: Alkaline Phosphatase 75 U/L (45-117); Total Protein 7.4 g/dL (6.4-8.2)
[2018-05-25] MEDS ORDERED: HYDROmorphone PF Inj 2 MG/ML Vial IV.PUSH ONE (07:24)
--- NOTE | 2018-05-25 09:56 | CT ---
EXAM DATE: 05/25/2018 9:17 AM EST AGE/SEX: 72 years / Male INDICATIONS: Chronic back pain, epidural lidocaine injection 2 days ago. CLINICAL DATA: This is the patient's initial encounter. Patient reports that signs and symptoms have been present for 2 days and indicates a pain score of 7/10. MEDICAL/SURGICAL HISTORY: Hypertension. Diabetes. Cardiovascular disease. Appendectomy. CABG. Co ivana surgery RADIATION DOSE: 27.73 CTDI (mGy) COMPARISON: [facility] [place], CT LUMBAR SPINE W/O CONTRAST, 05/04/2018. . TECHNIQUE: Contiguous axial images were acquired with a multirow detector CT scanner without contras t. Multiplanar reconstructions in the sagittal and coronal plane were also performed. Using automate d exposure control and adjustment of the mA and/or kV according to patient size, radiation dose was k ept as low as reasonably achievable to obtain optimal diagnostic quality images. DICOM format image data is available electronically for review and comparison. FINDINGS: Vertebrae: No fracture or compression deformity. There are small endplate osteophytes at several le vels. Alignment: No anterolisthesis or retrolisthesis. T12-L1: No disc herniation, canal stenosis, or neural foraminal stenosis. L1-L2: No disc herniation, canal stenosis, or neural foraminal stenosis. L2-L3: There is a mild diffuse disc bulge. No significant disc herniation, canal stenosis, or neural foraminal stenosis is present. Findings at this level are stable. L3-L4: There is mild decreased disc height with a moderate size diffuse disc bulge and mild facet an d ligamentum flavum hypertrophy. No significant spinal canal stenosis is identified. There is mild to moderate bilateral neural foraminal narrowing. Findings at this level are stable. L4-L5: There is a mild to moderate diffuse disc bulge with mild to moderate facet hypertrophy. No sp inal canal stenosis is present. There is mild narrowing of the neural foramina bilaterally. Findings at this level are stable. L5-S1: Decreased disc height with endplate sclerosis, endplate osteophytes, and vacuum disc. There i s a diffuse disc bulge with small left paracentral disc protrusion that contains gas. It slightly abu ts the left S1 nerve root in the lateral recess. No spinal canal stenosis is present. There is modera te bilateral neural foraminal stenosis and moderate bilateral facet arthrosis. The gas within the lef t paracentral disc protrusion is new. Other: The visualized surrounding structures demonstrate no acute abnormality. There is moderate to s evere atherosclerotic disease. CONCLUSION: 1. Severe degenerative disc disease at L5-S1 with a small left paracentral disc protrusion and conta ining gas. This finding is new and abuts the left S1 nerve root. There is no spinal canal stenosis at this level but there is moderate bilateral neural foraminal narrowing. 2. All of the remaining levels demonstrate stable changes, as above, without spinal canal stenosis. 3. Severe atherosclerotic disease. Electronically signed by: Kyle Farah MD 05/25/2018 9:55 AM EST
[2018-05-25] MEDS ORDERED: Acetaminophen 325 MG Tablet PO PRN (11:25)
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
[2018-05-25] MEDS: Morphine Inj 4 MG/ML Vial IV.PUSH PRN ×2 (13:14→19:31)
--- NOTE | 2018-05-25 15:28 | P.CONNS ---
History of Present Illness Service: neurosurgery Consult date: 05/25/18 Requesting Physician: Karine Atkins Reason for Consult: low back pain Primary Care Provider: Ngozi Yoo MD Chief Complaint: Low Back Pain Radiating to Left Groin and Anterior Left Leg History of Present Illness: Mr. Yap is a 72yo Male with histotry of PTSD, Diabetes, HTN, Hyperlipidemia, GERD, BPH, Erectile Dysfunction, Opioid Induced Constipation, Chronic Back Pain, and peripheral Neuropathy. He is well known to [place] emergency room physicians with multiple prior admissions. He was brought in by his Fiance on 05/25/18 c/o worsened back pain s/ p epidural Lidocaine injection done outpatient by Dr. Preston on 05/23/18. He reports that pain is currently 8/10 above his baseline (5-6/10) and is unable to get relief even with his prescribed narcotics on top of the lidocaine injection. He describes pain as constant and aching with radiation to the Left Groin and Anterolateral surface of his Left Thigh. Aggravating Factors include ambulating and applying pressure to lower lumbar/sacral area. Alleviated with rest. Denies Bowel/Bladder Dysfunction or Incontinence. He has an extensive medication list and states that he sometimes takes Oxycodone but cannot recall the dosage; however, he denies daily usage due to Opioid Induced Constipation. He was instructed by to report to ED if his pain continued. . Pt reports prior Epidural Lidocaine Injection before that provided him with symptomatic relief for about 1yr. Previous CT of Lumbar Spine was normal; CT performed on admission today shows L5 -S1 Small left Paracentral Disc Protrusion Containing Gas abutting the Left S1 Nerve Root. Endorses Intermittent SOB, Chronic Constipation, Progressing Memory Problems, and Frequent Falls that he attributes to pain affecting his gait and occasional dizziness when he stands up from sitting. Denies ELKINS, Fever, Recent Illness, Neck Pain, Sore Throat, Chest Pain, Abdominal Pain, Diarrhea, N/V, Melena/Hematochezia, Dysuria, Edema, or Paraesthesias. Neurosurgery consultation was requested his family history was reviewed and was noncontributory to the current admission Review of Systems All other systems reviewed negative except as stated in HPI [facility] - History History Provided By: Patient, Family Member - Medical History Medical History: Medical History (Last Reviewed 05/28/18 @ 16:52 by Avery Curiel MD) Depression Diabetes FH: cholecystectomy GERD (gastroesophageal reflux disease) HTN (hypertension) PTSD (post-traumatic stress disorder) - Surgical History Surgical History: Surgical History (Last Reviewed 05/28/18 @ 16:52 by Avery Curiel MD) H/O neck surgery History of appendectomy History of cardiac cath History of colon surgery S/P CABG x 5 - Tobacco History Second Hand Smoke Exposure: Yes Tobacco Use In Past 30 Days: Yes Smoking Status: Light tobacco smoker Tobacco Type: Cigarettes - Alcohol History How Often Do You Have a Drink Containing Alcohol: 2 to 3 times a week - Substance Use History Substance History: No History of Abuse - Travel History Recent Travel in the [place] Within the Last 8 Weeks: No Recent Travel Out of the Country Within the Last 8 Weeks: No - Immunization History Tetanus Immunization: Unsure Medications and Allergies Active Medications: Active Medications Acetaminophen (Tylenol) 650 mg PO Q4H PRN PRN Reason: Temp > 100.4 Al Hydroxide/Mg Hydroxide (Milk Of Magnesia Liq) 30 ml PO Q12H PRN PRN Reason: Mild Constipation Amlodipine Besylate (Norvasc) 10 mg PO DAILY [facility] Aspirin (Ecotrin) 81 mg PO DAILY [facility] Bisacodyl (Dulcolax Supp) 10 mg RECTAL DAILY PRN PRN Reason: SEVERE CONSITIPATION Duloxetine HCl (Cymbalta) 60 mg PO DAILY [facility] Heparin Sodium (Porcine) (Heparin Inj) 5,000 units SQ Q12H [facility] Lactulose (Lactulose Liq) 30 ml PO DAILY PRN PRN Reason: SEVERE CONSITIPATION Morphine Sulfate (Morphine Inj) 4 mg IV.PUSH Q4H PRN PRN Reason: BREAKTHROUGH PAIN Last Admin: 05/25/18 13:14 Dose: 4 mg Non-Formulary Medication (Chlorthalidone [Chlorthalidone]) 12.5 mg PO DAILY [facility] Non-Formulary Medication (Rosuvastatin [Rosuvastatin]) 40 mg PO DAILY [facility] Non-Formulary Medication (Empagliflozin [Empagliflozin]) 25 mg PO DAILY [facility] Ondansetron HCl (Zofran Inj) 4 mg IV.PUSH Q6H PRN PRN Reason: NAUSEA OR VOMITING Oxycodone/Acetaminophen (Percocet 5/325 Mg) 1 tab PO Q4H PRN PRN Reason: PAIN SCALE 6 TO 10 Pantoprazole Sodium (Protonix) 40 mg PO BID [facility] Prazosin HCl (Minipress) 3 mg PO HS [facility] Senna/Docusate Sodium (Anitra-Colace) 1 tab PO BID [facility] Sennosides (Senokot) 17.2 mg PO Q12H PRN PRN Reason: Moderate Constipation Sodium Chloride (Ns Flush) 2 ml IV.FLUSH BID [facility] Sodium Chloride (Ns Flush) 2 ml IV.FLUSH PRN PRN PRN Reason: FLUSH AFTER USING IV ACCESS Temazepam (Restoril) 15 mg PO HS PRN PRN Reason: INSOMNIA Allergies Allergy/AdvReac Type Severity Reaction Status Date / Time lisinopril Allergy Severe Edema Verified 05/25/18 05:39 Home Medications Medication Instructions Recorded Confirmed Type Lantus U-100 Insulin 25 units SUB-Q HS 01/28/18 05/25/18 History amlodipine 10 mg PO DAILY 01/28/18 05/25/18 History aspirin [Aspir-81] 81 mg PO DAILY 01/28/18 05/25/18 History duloxetine 60 mg PO DAILY 01/28/18 05/25/18 History empagliflozin 25 mg PO DAILY 01/28/18 05/25/18 History insulin aspart U-100 [Novolog 25 units SUB-Q TID 01/28/18 05/25/18 History U-100 Insulin aspart] melatonin 6 mg PO HS 01/28/18 05/25/18 History omeprazole 40 mg PO BID 01/28/18 05/25/18 History prazosin 3 mg PO HS 01/28/18 05/25/18 History rosuvastatin 40 mg PO DAILY 01/28/18 05/25/18 History chlorthalidone 12.5 mg PO DAILY 04/29/18 05/25/18 History turmeric 1 tab PO DAILY 04/29/18 History insulin aspart U-100 [Novolog 10 unit SUBCUT AC LUNCH 05/25/18 05/25/18 History U-100 Insulin aspart] Exam Vital signs: Vital Signs 05/25/18 05:36 05/25/18 07:37 05/25/18 07:40 Temperature 97.4 F L Pulse Rate 83 80 Respiratory Rate 18 16 Blood Pressure 145/74 H 135/69 Pulse Oximetry 99 94 L 88 L 05/25/18 07:43 05/25/18 10:29 05/25/18 14:00 Temperature Pulse Rate 77 91 H Respiratory Rate 18 16 Blood Pressure 167/85 H 164/70 H Pulse Oximetry 94 L 98 97 Intake & Output 05/24/18 05/25/18 05/25/18 18:59 06:59 18:59 Weight 90.718 kg Narrative: The patient is alert, awake. Comfortable, in no acute distress. Speech is fluent. Cranial nerve examination: pupils to be equal, round and reactive to light. Extra-ocular movements are intact. Facial motor and sensory function are normal and symmetrical. Gross hearing appears intact. Sternocleidomastoid and trapezius muscles are symmetrical. Other cranial nerves are intact. Neck is soft and supple with a good range of motion without pain. Muscle strength is normal in all muscle groups of both upper extremities. with give away due to pain in his lower extremities. Sensory examination is intact to light touch and pin prick in both upper extremities, midly decreased in the anterior surface of his left thigh. There is pain to palpation over the facets from L2-L5 and left SI joint, as well as the left hip. Deep tendon reflexes are 1+ symmetrical in both upper and lower extremities. There is a bilateral plantar flexion response. Cerebellar examination is unremarkable, without deficits. Lungs are clear Heart regular rhythm is regular rate Skin warm and dry Results - Laboratory Findings CBC and BMP: 05/26/18 06:20 05/26/18 06:20 Abnormal lab findings: Abnormal Labs 05/25/18 05/25/18 05/25/18 06:21 06:21 06:21 MCV 78.0 L MCH 25.4 L RDW 18.1 H Neut % (Auto) 80.8 H APTT 22.9 L Sodium 135 L BUN 27 H Estimated GFR 61 L POC Glucose Random Glucose 333 H AST 10 L 05/25/18 14:29 MCV MCH RDW Neut % (Auto) APTT Sodium BUN Estimated GFR POC Glucose 245 H Random Glucose AST Assessment and Plan - Plan I have reviewed the clinical and radiological findings Lumbar Spine CT 05/25/18 08:24 CONCLUSION: 1. Severe degenerative disc disease at L5-S1 with a small left paracentral disc protrusion and containing gas. This finding is new and abuts the left S1 nerve root. There is no spinal canal stenosis at this level but there is moderate bilateral neural foraminal narrowing. 2. All of the remaining levels demonstrate stable changes, as above, without spinal canal stenosis. 3. Severe atherosclerotic disease. Neuro: neuro checks in a serial fashion. I discussed with him his findings and that I recommend MRI lumbar sine. Nonoperative management for now. He has undergone multiple MRI's in the past with his pacer wire Pulmonary: aggressive pulmonary toilette, nasotracheal suction, and breathing treatments with nebulizers. Analgesics and physical therapy Renal: Continue to monitor closely urine output, BUN and creatinine Endocrine: Continue to Monitor serial Acu checks and SSI as needed in detail ID continue to monitor for signs of infection Continue Protonix for stress ulcer prophylaxis Continue Raghu hose and SCD's for DVT prophylaxis Further recommendations will be provided depending on the patient's clinical evaluation and follow up studies.
--- NOTE | 2018-05-25 16:35 | P.HPIM ---
History of Present Illness Primary Care Physician: Ngozi Yoo MD History of Present Illness: 72-year-old male with a medical history significant for diabetes, hypertension, hyperlipidemia, PTSD, GERD, BPH, erectile dysfunction, chronic back pain and lumbosacral radiculopathy who presented to the emergency room with complaint of worsening lower back pain radiating to the left groin area. He reports he has been having ongoing issues with pain for the past few months. He has been followed by pain management and has had several interventions including injections without much improvement. I discussed the case with his pain management Dr. Almonte who reports the patient has failed conservative management. He also had an EMG from neurology that were is consistent with radiculopathy. At this point the pain management doctor is recommending surgical intervention. The patient reports the pain is so severe that he is unable to ambulate. He would have shooting pain to the point where he would collapse. He has been using a rolling walker for the past few months but still had multiple episodes of near falls. Lumbar CT today shows L5-S1 Small left Paracentral Disc Protrusion Containing Gas abutting the Left S1 Nerve Root. The patient denies saddle paresthesia, bowel or bladder incontinence. Inpatient Certification Inpatient Certification: I certify that the inpatient services were ordered in accordance with Medicare regulations governing the order. This includes certification that hospital inpatient services are reasonable and necessary and in the case of services not specified as inpatient-only under 42 CFR 419.22(n), that they are appropriately provided as inpatient services in accordance to with the 2-midnight benchmark under 43 CFR 412.3(e) Estimated Total Length of Stay (Days): 4 Plans for Post Hospital Care: Not yet determined Review of Systems Review of Systems: all other systems reviewed are negative [facility] Medical History Medical History Depression (Acute) Diabetes (Acute) FH: cholecystectomy (Acute) GERD (gastroesophageal reflux disease) (Acute) HTN (hypertension) (Acute) PTSD (post-traumatic stress disorder) (Acute) Surgical History Surgical History H/O neck surgery (Acute) History of appendectomy (Acute) History of cardiac cath (Acute) History of colon surgery (Acute) S/P CABG x 5 (Acute) Social History Social History Substance History: No History of Abuse Second Hand Smoke Exposure: Yes Smoking Status: Light tobacco smoker Tobacco Type: Cigarettes How Often Do You Have a Drink Containing Alcohol: 2 to 3 times a week Recent Travel in [facility] within the Last 8 Weeks: No Recent Out of Country Travel within the Last 8 Weeks: No Immunization History Tetanus Immunization: Unsure Medications and Allergies Allergies Allergy/AdvReac Type Severity Reaction Status Date / Time lisinopril Allergy Severe Edema Verified 05/25/18 05:39 MRI PRECAUTION AdvReac Severe PACER LEAD Uncoded 05/25/18 05:39 IN CHEST~DR. GARCIA~LRS~06/26/14 Home Medications Medication Instructions Recorded Confirmed Type Lantus U-100 Insulin 25 units SUB-Q HS 01/28/18 05/25/18 History amlodipine 10 mg PO DAILY 01/28/18 05/25/18 History aspirin [Aspir-81] 81 mg PO DAILY 01/28/18 05/25/18 History duloxetine 60 mg PO DAILY 01/28/18 05/25/18 History empagliflozin 25 mg PO DAILY 01/28/18 05/25/18 History insulin aspart U-100 [Novolog 25 units SUB-Q TID 01/28/18 05/25/18 History U-100 Insulin aspart] melatonin 6 mg PO HS 01/28/18 05/25/18 History omeprazole 40 mg PO BID 01/28/18 05/25/18 History prazosin 3 mg PO HS 01/28/18 05/25/18 History rosuvastatin 40 mg PO DAILY 01/28/18 05/25/18 History chlorthalidone 12.5 mg PO DAILY 04/29/18 05/25/18 History turmeric 1 tab PO DAILY 04/29/18 History insulin aspart U-100 [Novolog 10 unit SUBCUT AC LUNCH 05/25/18 05/25/18 History U-100 Insulin aspart] Active Medications: Active Medications Acetaminophen (Tylenol) 650 mg PO Q4H PRN PRN Reason: Temp > 100.4 Al Hydroxide/Mg Hydroxide (Milk Of Magnesia Liq) 30 ml PO Q12H PRN PRN Reason: Mild Constipation Amlodipine Besylate (Norvasc) 10 mg PO DAILY [facility] Aspirin (Ecotrin) 81 mg PO DAILY [facility] Atorvastatin Calcium (Lipitor) 80 mg PO HS [facility] Bisacodyl (Dulcolax Supp) 10 mg RECTAL DAILY PRN PRN Reason: SEVERE CONSITIPATION Duloxetine HCl (Cymbalta) 60 mg PO DAILY [facility] Heparin Sodium (Porcine) (Heparin Inj) 5,000 units SQ Q12H [facility] Lactulose (Lactulose Liq) 30 ml PO DAILY PRN PRN Reason: SEVERE CONSITIPATION Morphine Sulfate (Morphine Inj) 4 mg IV.PUSH Q4H PRN PRN Reason: BREAKTHROUGH PAIN Last Admin: 05/25/18 13:14 Dose: 4 mg Ondansetron HCl (Zofran Inj) 4 mg IV.PUSH Q6H PRN PRN Reason: NAUSEA OR VOMITING Oxycodone/Acetaminophen (Percocet 5/325 Mg) 1 tab PO Q4H PRN PRN Reason: PAIN SCALE 6 TO 10 Pantoprazole Sodium (Protonix) 40 mg PO BID [facility] Patient Own Medication ( Chlorthalidone [ Chlorthalidone] 12.5 Mg) 0 each PO DAILY [facility] Patient Own Medication ( Empagliflozin [ Empagliflozin] 25 Mg ) 0 each PO DAILY [facility] Prazosin HCl (Minipress) 3 mg PO HS [facility] Senna/Docusate Sodium (Anitra-Colace) 1 tab PO BID [facility] Sennosides (Senokot) 17.2 mg PO Q12H PRN PRN Reason: Moderate Constipation Sodium Chloride (Ns Flush) 2 ml IV.FLUSH BID [facility] Sodium Chloride (Ns Flush) 2 ml IV.FLUSH PRN PRN PRN Reason: FLUSH AFTER USING IV ACCESS Temazepam (Restoril) 15 mg PO HS PRN PRN Reason: INSOMNIA Physical Exam Vital signs: Last Vital Signs Temp 97.4 F L 05/25/18 05:36 Pulse 91 H 05/25/18 14:00 Resp 16 05/25/18 14:00 BP 164/70 H 05/25/18 14:00 Pulse Ox 97 05/25/18 14:00 Intake & Output 05/23/18 05/24/18 05/25/18 05/26/18 06:59 06:59 06:59 06:59 Weight 90.718 kg Narrative: GEN: Elderly male, appears to be in discomfort laying on his right side. HEENT: Normocephalic, Atraumatic, No Edema; Eyes - EOMI, Nonicteric, No Conjunctival Pallor, Noninjected; Nose - healing surgical scars on exterior nares and bridge of nose Cardio: RRR, Normal S1/S2, No murmurs/rubs/gallops, No JVD, No Carotid Bruits, Pulses Intact +2 Bilaterally Throughout, No Edema Lungs: Clear to Auscultation Anteriorly/Posteriorly Bilaterally, No rales/ rhonchi/crackles/wheezes GI: +BS all 4 quadrants, Abdomen Soft, Nondistended, Nontender, No rebound or guarding, No organomegaly or masses Neuro: Alert, Oriented x4, Mini-Cog 2/3, Recall 2/3 words, No focal neuro deficits, CN II-XI intact bilaterally MSK: 8/10 pain with radiation on palpation of the Left Lower Lumbar/Upper Sacral Spine and Paraspinal Area; muscle strength equal in bilateral lower extremities. Skin: Scattered Petechiae and Purpura seen bilaterally throughout Upper Extremity; No jaundice or rash Results Labs CBC & Chem 7: 05/25/18 06:21 05/25/18 06:21 Imaging Impressions Lumbar Spine CT 05/25/18 08:24 CONCLUSION: 1. Severe degenerative disc disease at L5-S1 with a small left paracentral disc protrusion and containing gas. This finding is new and abuts the left S1 nerve root. There is no spinal canal stenosis at this level but there is moderate bilateral neural foraminal narrowing. 2. All of the remaining levels demonstrate stable changes, as above, without spinal canal stenosis. 3. Severe atherosclerotic disease. Caprini VTE Risk Assessment Caprini VTE Risk Assessment: Moderate/High Risk (score >= 2) Caprini Risk Assessment Model: Point Value = 1 Point Value = 2 Point Value = 3 Point Value = 5 Age 41-60 Minor surgery BMI > 25 kg/m2 Swollen legs Varicose veins or History of unexplained or recurrent spontaneous Oral contraceptives or hormone replacement Sepsis (< 1 month) Serious lung disease, including pneumonia (< 1 month) Abnormal pulmonary function Acute myocardial infarction Congestive heart failure (< 1 month) History of inflammatory bowel disease Medical patient at bed rest Age 61-74 Arthroscopic surgery Major open surgery (> 45 min) Laparoscopic surgery (> 45 min) Malignancy Confined to bed (> 72 hours) Immobilizing plaster cast Central venous access Age >= 75 History of VTE Family history of VTE Factor V Leiden Prothrombin [id number] Lupus anticoagulant Anticardiolipin antibodies Elevated serum homocysteine Heparin-induced thrombocytopenia Other congenital or acquired thrombophilia Stroke (< 1 month) Elective arthroplasty Hip, pelvis, or leg fracture Acute spinal cord injury (< 1 month) Prophylaxis Regimen: Total Risk Factor Score Risk Level Prophylaxis Regimen 0-1 Low Early ambulation 2 Moderate Order ONE of the following: *Sequential Compression Device (SCD) *Heparin 5000 units SQ BID 3-4 Higher Order ONE of the following medications: *Heparin 5000 units SQ TID *Enoxaparin/Lovenox 40 mg SQ daily (WT < 150 kg, CrCl > 30 mL/min) *Enoxaparin/Lovenox 30 mg SQ daily (WT < 150 kg, CrCl > 10-29 mL/min) *Enoxaparin/Lovenox 30 mg SQ BID (WT < 150 kg, CrCl > 30 mL/min) AND/OR *Sequential Compression Device (SCD) 5 or more Highest Order ONE of the following medications: *Heparin 5000 units SQ TID (Preferred with Epidurals) *Enoxaparin/Lovenox 40 mg SQ daily (WT < 150 kg, CrCl > 30 mL/min) *Enoxaparin/Lovenox 30 mg SQ daily (WT < 150 kg, CrCl > 10-29 mL/min) *Enoxaparin/Lovenox 30 mg SQ BID (WT < 150 kg, CrCl > 30 mL/min) AND *Sequential Compression Device (SCD) Assessment and Plan Plan 72-year-old male admitted with acute worsening of lumbar radiculopathy. I discussed the case with the patient's outpatient pain management doctor. Patient previously had EMG which confirmed lumbosacral radiculopathy. He has had multiple interventions by the pain management physician including injections with no significant improvement. Per discussion with the pain management physician, he recommended surgical intervention as there is nothing else he can offer the patient to relieve his pain. Will admit the patient, pain control and neurosurgery is consulted for recommendations. L5-S1 radiculopathy with worsening symptoms. See CT results above. - Continue neurochecks. - Neurosurgery consult appreciated. Will obtain MRI. Discussed with the pain management doctor, the patient has had MRI in the past - Percocet as needed for pain and Morphine IV for breakthrough pain - Would avoid steroids for now due to diabetes. Patient reports a history of hospitalization after he used steroids. Type 2 Diabetes - stable -Continue Home Meds - NF Lantus 25units SubQ q HS -Sliding scale insulin with Accu-Cheks HTN - stable, controlled w/ home meds Continue Home Meds - Amlodipine 10mg once daily, Chlorthalidone 12.5mg once daily Hyperlipidemia Continue Home Meds - Rosuvastatin 40mg once daily GERD - Continue Home Meds - Omeprazole 40mg twice daily BPH - stable, controlled w/ home meds Continue Home Meds - Prazosin 3mg PO q HS PTSD - stable, controlled w/ home meds Continue Home Meds - Duloxetine 60mg once daily DVT Prophylaxis - Heparin
[2018-05-25] MEDS ORDERED: Dextrose 50% in Water 50 ML Vial IV.PUSH PRN (16:41)
[2018-05-25] MEDS: Insulin NovoLOG Aspart Correctional Sugar Inj SQ SCH ×2 (17:54→21:56)
[2018-05-25] MEDS: Heparin - SQ 10,000 UNITS/ML Vial SQ SCH (18:01)
[2018-05-25] MEDS: Senna/Docusate Sodium 8.6/50 MG Tablet PO SCH (21:54)
[2018-05-25] MEDS: Prazosin HCl 1 MG Capsule PO SCH (21:54)
[2018-05-25] MEDS: Insulin Detemir Inj 1,000 UNIT/10 ML Vial SQ SCH (21:56)
[2018-05-26] MEDS: Morphine Inj 4 MG/ML Vial IV.PUSH PRN ×4 (01:35→21:34)
[2018-05-26] MEDS: Heparin - SQ 10,000 UNITS/ML Vial SQ SCH ×2 (02:30→14:28)
[2018-05-26 07:14] LABS: Baso % (Auto) 0.1 % (0.0-2.0); Eos % (Auto) 0.1 % (0.0-4.0); Hematocrit 42.4 % (39.0-51.0); Lymph # (Auto) 1.8 th/mm3 (1.0-4.8); Lymph % (Auto) 19.1 % (9.0-44.0); Mean Corpuscular Hemoglobin 25.7 pg (27.0-34.0); Mean Corpuscular Volume 77.9 fL (80.0-100.0); Mean Platelet Volume 9.4 fL (7.0-11.0); Mono # (Auto) 0.6 th/mm3 (0.0-0.9); Mono % (Auto) 6.7 % (0.0-8.0); Neut # (Auto) 6.9 th/mm3 (1.8-7.7); Platelet Count 203 th/mm3 (150-450); Red Blood Count 5.45 mil/mm3 (4.50-5.90); Red Cell Distribution Width 18.2 % (11.6-17.2); White Blood Count 9.3 th/mm3 (4.0-11.0)
[2018-05-26 07:33] LABS: Calcium 8.9 mg/dL (8.5-10.1); Carbon Dioxide 26.8 meq/L (21.0-32.0); Potassium 3.8 meq/L (3.5-5.1)
[2018-05-26] MEDS: Duloxetine 60 MG DR Capsule PO SCH (08:38)
[2018-05-26] MEDS: amLODIPine 10 MG Tablet PO SCH (08:38)
[2018-05-26] MEDS: Senna/Docusate Sodium 8.6/50 MG Tablet PO SCH ×2 (08:39→21:31)
[2018-05-26] MEDS ORDERED: EMPAGLIFLOZIN 25 MG PO SCH (09:00)
[2018-05-26] MEDS ORDERED: CHLORTHALIDONE 12.5 MG PO SCH (09:00)
[2018-05-26] MEDS: Insulin NovoLOG Aspart Correctional Sugar Inj SQ SCH ×4 (09:44→21:32)
[2018-05-26] MEDS ORDERED: Ketorolac Inj 30 MG/ML (IVP) Vial IV.PUSH ONE (12:00)
[2018-05-26] MEDS ORDERED: Mineral Oil Enema 118 ML Bottle RECTAL ONE (14:00)
--- NOTE | 2018-05-26 15:39 | P.PNIM ---
Subjective Interval history: patient reports a lot of pain in the lower back. Physical Exam Vital signs: Last Vital Signs Temp 97.8 F 05/26/18 12:00 Pulse 96 H 05/26/18 12:00 Resp 18 05/26/18 12:00 BP 162/88 H 05/26/18 12:00 Pulse Ox 94 L 05/26/18 12:00 Intake & Output 05/24/18 05/25/18 05/26/18 05/27/18 06:59 06:59 06:59 06:59 Intake Total 480 / 480 Output Total 1050 / 1050 Balance -570 / -570 Weight 90.718 kg 88.5 kg Results Labs CBC & Chem 7: 05/26/18 06:20 05/26/18 06:20 Assessment and Plan Plan 72-year-old male admitted with acute worsening of lumbar radiculopathy. multiple conservative mx approaches including injections referred for inpatient mx and surgical intervention. L5-S1 radiculopathy with worsening symptoms. - Continue neurochecks. - Neurosurgery consult appreciated. MRI could not be done today due an implant. - Percocet as needed for pain and Morphine IV for breakthrough pain - Would avoid steroids for now due to diabetes. Patient reports a history of hospitalization after he used steroids. Type 2 Diabetes - stable -Continue Home Meds - NF Lantus 25units SubQ q HS -Sliding scale insulin with Accu-Cheks HTN - stable, controlled w/ home meds Continue Home Meds - Amlodipine 10mg once daily, Chlorthalidone 12.5mg once daily Hyperlipidemia Continue Home Meds - Rosuvastatin 40mg once daily GERD - Continue Home Meds - Omeprazole 40mg twice daily BPH - stable, controlled w/ home meds Continue Home Meds - Prazosin 3mg PO q HS PTSD - stable, controlled w/ home meds Continue Home Meds - Duloxetine 60mg once daily DVT Prophylaxis - Heparin Progress Note: Quality VTE Deep Vein Thrombosis/Pulmonary Embolism Present on Admission: No
[2018-05-26] MEDS: Insulin Detemir Inj 1,000 UNIT/10 ML Vial SQ SCH (21:32)
[2018-05-26] MEDS: Prazosin HCl 1 MG Capsule PO SCH (22:43)
[2018-05-27] MEDS: Morphine Inj 4 MG/ML Vial IV.PUSH PRN ×5 (02:29→23:12)
[2018-05-27] MEDS: Heparin - SQ 10,000 UNITS/ML Vial SQ SCH ×2 (04:29→14:49)
[2018-05-27] MEDS: Insulin NovoLOG Aspart Correctional Sugar Inj SQ SCH ×4 (08:30→21:03)
[2018-05-27] MEDS: Senna/Docusate Sodium 8.6/50 MG Tablet PO SCH ×2 (09:05→21:02)
[2018-05-27] MEDS: amLODIPine 10 MG Tablet PO SCH (09:05)
[2018-05-27] MEDS: Duloxetine 60 MG DR Capsule PO SCH (09:05)
--- NOTE | 2018-05-27 14:10 | P.PNIM ---
Subjective Interval history: patient still c/o lower back pain. difficult to find a comfortable position. Physical Exam Vital signs: Last Vital Signs Temp 98.2 F 05/27/18 12:00 Pulse 96 H 05/27/18 12:00 Resp 20 05/27/18 12:00 BP 134/84 05/27/18 12:00 Pulse Ox 98 05/27/18 12:00 Intake & Output 05/25/18 05/26/18 05/27/18 05/28/18 06:59 06:59 06:59 06:59 Intake Total 480 / 480 960 / 960 Output Total 1050 / 1050 1250 / 1250 Balance -570 / -570 -290 / -290 Weight 90.718 kg 88.5 kg 88.5 kg Narrative: GEN: Elderly male, appears to be in discomfort laying on his right side. HEENT: not pale,anicteric Cardio: RRR, Normal S1/S2, No murmurs Lungs: Clear to Auscultation Anteriorly/Posteriorly Bilaterally, No rales/ rhonchi/crackles/wheezes GI: +BS all 4 quadrants, Abdomen Soft, Nondistended, Nontender, No rebound or guarding, No organomegaly or masses Neuro: Alert, Oriented x4 Skin: Scattered Petechiae and Purpura seen bilaterally throughout Upper Extremity; No jaundice or rash Results Labs CBC & Chem 7: 05/26/18 06:20 05/26/18 06:20 Assessment and Plan Plan 72-year-old male admitted with acute worsening of lumbar radiculopathy. multiple conservative mx approaches including injections referred for inpatient mx and surgical intervention. L5-S1 radiculopathy with worsening symptoms. - Continue neurochecks. - Neurosurgery consult appreciated. MRI could not be done due an implant. - Percocet as needed for pain and Morphine IV for breakthrough pain - Would avoid steroids for now due to diabetes. Patient reports a history of hospitalization after he used steroids. Type 2 Diabetes - stable -Continue Home Meds - NF Lantus 25units SubQ q HS -Sliding scale insulin with Accu-Cheks HTN - stable, controlled w/ home meds Continue Home Meds - Amlodipine 10mg once daily, Chlorthalidone 12.5mg once daily Hyperlipidemia Continue Home Meds - Rosuvastatin 40mg once daily GERD - Continue Home Meds - Omeprazole 40mg twice daily BPH - stable, controlled w/ home meds Continue Home Meds - Prazosin 3mg PO q HS PTSD - stable, controlled w/ home meds Continue Home Meds - Duloxetine 60mg once daily DVT Prophylaxis - Heparin Progress Note: Quality VTE Deep Vein Thrombosis/Pulmonary Embolism Present on Admission: No
--- NOTE | 2018-05-27 15:48 | P.PNNS ---
Subjective Interval history: The patient continues to complain of intractable low back pain on the left with radiation into the left hip and groin as well as down his left lower extremity. Physical Exam Vital signs: Vital Signs 05/26/18 15:52 05/26/18 16:00 05/26/18 20:00 Temperature 98.9 F 97.7 F Pulse Rate 92 H 87 Respiratory Rate 21 18 17 Blood Pressure 140/75 152/86 H Pulse Oximetry 96 98 05/27/18 00:00 05/27/18 04:00 05/27/18 08:00 Temperature 97.3 F L 97.8 F 98.1 F Pulse Rate 82 86 92 H Respiratory Rate 17 17 20 Blood Pressure 138/72 148/80 H 159/87 H Pulse Oximetry 97 98 97 05/27/18 12:00 Temperature 98.2 F Pulse Rate 96 H Respiratory Rate 20 Blood Pressure 134/84 Pulse Oximetry 98 Intake & Output 05/26/18 05/27/18 05/27/18 18:59 06:59 18:59 Intake Total 480 / 480 480 / 480 Output Total 750 / 750 500 / 500 Balance -270 / -270 -20 / -20 Weight 88.5 kg Intake: Oral 480 / 480 480 / 480 Output: Urine 750 / 750 500 / 500 Other: Date of Last Bowel Movement 05/24/18 05/24/18 # Bowel Movements 0 - Routine Neurological Exam The patient is awake and alert. He is oriented by 3. His speech is fluent. His memory is intact. CN 2-12 are intact. He suffers with chronic vertigo. Motor examination is 5+/5+ throughout. Sensory examination reveals diminished pin over the left lateral thigh and is otherwise intact throughout. DTR's are 1+ to 2+ throughout. He has difficulty ambulating with a walker. He is continent. There is pain to palpation over the facets from L2-L5 and left SI joint, as well as the left hip. There is limited ROM to the LS spine and the left hip. Left SLR is positive at 70 degrees. Assessment and Plan - Plan I have reviewed the clinical and radiological findings Lumbar Spine CT 05/25/18 08:24 CONCLUSION: 1. Severe degenerative disc disease at L5-S1 with a small left paracentral disc protrusion and containing gas. This finding is new and abuts the left S1 nerve root. There is no spinal canal stenosis at this level but there is moderate bilateral neural foraminal narrowing. 2. All of the remaining levels demonstrate stable changes, as above, without spinal canal stenosis. 3. Severe atherosclerotic disease. Neuro: neuro checks in a serial fashion. Recommend MRI lumbar sine. Nonoperative management for now Pulmonary: aggressive pulmonary toilette, nasotracheal suction, and breathing treatments with nebulizers. Analgesics and physical therapy Renal: Continue to monitor closely urine output, BUN and creatinine Endocrine: Continue to Monitor serial Acu checks and SSI as needed in detail ID continue to monitor for signs of infection Continue Protonix for stress ulcer prophylaxis Continue Raghu hose and SCD's for DVT prophylaxis Further recommendations will be provided depending on the patient's clinical evaluation and follow up studies. 05/27 I discussed with the patient the need for further imaging of his LS spine and left hip. He understands and is agreeable. I met with the neuroradiologist Dr Boone and we reviewed the case and he will facilitate obtaining the MRI scans of the left hip and LS spine. Depending on the results will determine the appropriate further diagnostic and therapeutic approach. Neurosurgery will follow. Simone Strauss MD
--- NOTE | 2018-05-27 18:07 | MR ---
EXAM DATE: 05/27/2018 5:50 PM EST AGE/SEX: 72 years / Male INDICATIONS: Radiculopathy. Severe low back pain with pain to left hip and groin. CLINICAL DATA: This is the patient's initial encounter. Patient reports that signs and symptoms have been present for 2 days and indicates a pain score of 5/10. MEDICAL/SURGICAL HISTORY: Diabetes mellitus type II. Cardiovascular disease. Hypertension. V ertigo, GERD. CABG. Cholecystectomy. Appendectomy. Cervical fusion. COMPARISON: [facility], CT ABDOMEN & PELVIS W CONTRAST, 01/28/2018. . TECHNIQUE: Multiplanar, multisequence MRI examination was performed without contrast. FINDINGS: Bone marrow signal is within normal limits. No fracture or bone marrow edema is identified. There is a small left hip joint effusion with minimal osteoarthritis change. The visualized surrounding muscle s and soft tissues demonstrate no abnormality. Visualized pelvic structures also demonstrate no acute abnormality. CONCLUSION: 1. No abnormality is identified to explain the clinical symptoms. 2. Mild left hip joint osteoarthritis with small joint effusion. Electronically signed by: Kyle Farah MD 05/27/2018 6:06 PM EST
--- NOTE | 2018-05-27 18:18 | MR ---
EXAM DATE: 05/27/2018 6:07 PM EST AGE/SEX: 72 years / Male INDICATIONS: Radiculopathy. Severe low back pain with pain to left hip and groin. CLINICAL DATA: This is the patient's initial encounter. Patient reports that signs and symptoms have been present for 2 days and indicates a pain score of 5/10. MEDICAL/SURGICAL HISTORY: Diabetes mellitus type II. Hypertension. Cardiovascular disease. G ERD,vertigo. CABG. Appendectomy. Cholecystectomy. Cervical fusion. COMPARISON: [facility], MR CERVICAL SPINE W AND W/O CONTRAST, 11/18/2016. . TECHNIQUE: Multiplanar, multisequence MRI of the lumbar spine was performed without contrast. Patie nt was scanned in a sitting position; neutral, flexion, and extension scans were performed in the sa gittal plane. FINDINGS: Vertebra: The lumbar vertebral bodies are normal in height. There is a Schmorl's node seen at the an terior inferior aspect of L5. The lumbar vertebral bodies are normally aligned. Conus: Normal level and configuration. T11-T12: This areas only seen on the sagittal images. There is a mild central disc protrusion or bulg e. There continues be CSF around the cord at this level. T12-L1: The thecal sac has a normal diameter. No evidence of disc bulge or protrusion. The neural foramina are patent bilaterally. L1-L2: The thecal sac has a normal diameter. No evidence of disc bulge or protrusion. The neural foramina are patent bilaterally. L2-L3: The thecal sac has a normal diameter. No evidence of disc bulge or protrusion. The neural foramina are patent bilaterally. L3-L4: The disc demonstrates decreased signal and mild decrease height. There is asymmetric disc bu lge being worse on the left. This causes a mild impression on the thecal sac. There is narrowing of t he left neural foramina. The right neural foramina is grossly patent. L4-L5: The thecal sac has a normal diameter. No evidence of disc bulge or protrusion. The neural foramina are patent bilaterally. L5-S1: The disc demonstrates decreased height and decreased signal. A significant impression on the sedrick sac is not seen. There is mild facet hypertrophy. There is mild narrowing of the neural foramina secondary to the disc space loss of height and facet hypertrophy. CONCLUSION: 1. Mild disc bulge at the L3-L4 level being asymmetric and worse on the left causing narrowing of th e left neural foramina. 2. Loss of disc space height at the L5-S1 level. There is mild facet hypertrophy. There is mild narr owing of the neural foramina at this level. 3. Mild central disc protrusion or bulge at the T11-T12 level seen on the sagittal images. There con tinues to be CSF around the cord. Electronically signed by: Kyle Irby MD 05/27/2018 6:16 PM EST
[2018-05-27] MEDS: Insulin Detemir Inj 1,000 UNIT/10 ML Vial SQ SCH (21:02)
[2018-05-27] MEDS: Temazepam 15 MG Capsule PO PRN (21:02)
[2018-05-27] MEDS: Prazosin HCl 1 MG Capsule PO SCH (21:02)
[2018-05-28] MEDS: Heparin - SQ 10,000 UNITS/ML Vial SQ SCH ×2 (03:02→14:30)
[2018-05-28] MEDS: Morphine Inj 4 MG/ML Vial IV.PUSH PRN ×5 (03:02→20:27)
[2018-05-28] MEDS: Insulin NovoLOG Aspart Correctional Sugar Inj SQ SCH ×6 (08:30→20:27)
[2018-05-28] MEDS: Duloxetine 60 MG DR Capsule PO SCH (08:47)
[2018-05-28] MEDS: Senna/Docusate Sodium 8.6/50 MG Tablet PO SCH ×2 (08:47→20:26)
[2018-05-28] MEDS: amLODIPine 10 MG Tablet PO SCH (08:47)
--- NOTE | 2018-05-28 11:51 | P.PNIM ---
Subjective Interval history: patient reports no change in his pain. MRI done yesterday. Physical Exam Vital signs: Last Vital Signs Temp 97.3 F L 05/28/18 08:00 Pulse 98 H 05/28/18 08:00 Resp 18 05/28/18 08:00 BP 141/94 H 05/28/18 08:00 Pulse Ox 95 05/28/18 08:00 Intake & Output 05/26/18 05/27/18 05/28/18 05/29/18 06:59 06:59 06:59 06:59 Intake Total 480 / 480 960 / 960 240 / 240 Output Total 1050 / 1050 1250 / 1250 1700 / 1700 Balance -570 / -570 -290 / -290 -1460 / -1460 Weight 88.5 kg 88.5 kg 88.5 kg Narrative: GEN: Elderly male, appears to be in discomfort laying on his right side. HEENT: not pale,anicteric Cardio: RRR, Normal S1/S2, No murmurs Lungs: Clear to Auscultation Anteriorly/Posteriorly Bilaterally, No rales/ rhonchi/crackles/wheezes GI: +BS all 4 quadrants, Abdomen Soft, Nondistended, Nontender, No rebound or guarding, No organomegaly or masses Neuro: Alert, Oriented x4 Skin: Scattered Petechiae and Purpura seen bilaterally throughout Upper Extremity; No jaundice or rash Results Labs CBC & Chem 7: 05/26/18 06:20 05/26/18 06:20 Imaging Imaging: Impressions Hip MRI 05/27/18 00:00 CONCLUSION: 1. No abnormality is identified to explain the clinical symptoms. 2. Mild left hip joint osteoarthritis with small joint effusion. Lumbar Spine MRI 05/27/18 00:00 CONCLUSION: 1. Mild disc bulge at the L3-L4 level being asymmetric and worse on the left causing narrowing of the left neural foramina. 2. Loss of disc space height at the L5-S1 level. There is mild facet hypertrophy. There is mild narrowing of the neural foramina at this level. 3. Mild central disc protrusion or bulge at the T11-T12 level seen on the sagittal images. There continues to be CSF around the cord. Assessment and Plan Plan 72-year-old male admitted with acute worsening of lumbar radiculopathy. multiple conservative mx approaches including injections referred for inpatient mx and surgical intervention. L5-S1 radiculopathy with worsening symptoms. - Continue neuro checks. -MRI results noted. - Neurosurgery following. - Increased Percocet 5/325mg to 2 tabs q4h prn,cont Morphine IV 4mg for breakthrough pain -keep on bowel regimen. - Would avoid steroids for now due to diabetes. Patient reports a history of hospitalization after he used steroids. Type 2 Diabetes - stable -Continue Home Meds - NF Lantus 25units SubQ q HS -05/28 -blood glucose uncontrolled-low to mid 200's range-, started pre meal insulin at 5 units tid for now.(seems like he is on 10 units tid ac at home) -Sliding scale insulin with Accu-Cheks HTN - stable, controlled w/ home meds Continue Home Meds - Amlodipine 10mg once daily, Chlorthalidone 12.5mg once daily Hyperlipidemia Continue Home Meds - Rosuvastatin 40mg once daily GERD - Continue Home Meds - Omeprazole 40mg twice daily BPH - stable, controlled w/ home meds Continue Home Meds - Prazosin 3mg PO q HS PTSD - stable, controlled w/ home meds Continue Home Meds - Duloxetine 60mg once daily DVT Prophylaxis - Heparin Progress Note: Quality VTE Deep Vein Thrombosis/Pulmonary Embolism Present on Admission: No
--- NOTE | 2018-05-28 13:11 | P.PNNS ---
Subjective Interval history: HD#3 72 yo male who continues to complain of intractable low back pain on the left with radiation into the left hip and groin as well as down his left lower extremity. Physical Exam Vital signs: Vital Signs 05/27/18 16:00 05/27/18 20:00 05/28/18 00:00 Temperature 98.7 F 97.3 F L 97.7 F Pulse Rate 89 102 H 107 H Respiratory Rate 20 18 18 Blood Pressure 164/86 H 144/87 H 147/90 H Pulse Oximetry 96 97 96 05/28/18 04:00 05/28/18 08:00 Temperature 97.4 F L 97.3 F L Pulse Rate 103 H 98 H Respiratory Rate 18 18 Blood Pressure 129/96 H 141/94 H Pulse Oximetry 97 95 Intake & Output 05/27/18 05/28/18 05/28/18 18:59 06:59 18:59 Intake Total 240 / 240 Output Total 1500 / 1500 200 / 200 Balance -1500 / -1500 40 / 40 Weight 88.5 kg Intake: Oral 240 / 240 Output: Urine 1500 / 1500 200 / 200 - Constitutional mild distress, obese Comments: Uncomfortable due to low back and proximal left leg pain - Routine HEENT Exam Head: Present: normocephalic, atraumatic Eye: Present: EOMI, PERRL ENT: Present: mucous membranes moist, oropharynx clear - Routine Neck Exam Present: supple, full ROM - Routine Back/Spine/Pelvis Exam Back/Spine: Present: paraspinal tenderness, muscle spasm, abnormal straight leg raise Comments: +SLR on the left to 20 degrees Negative Danny's sign - Routine Neurological Exam MS: AAO x3 Speech- fluent. His memory is intact. CN II-XII are intact. Motor examination is 5+/5+ throughout. Sensory examination reveals diminished pin over the left lateral thigh and is otherwise intact throughout. DTR's are 1+ to 2+ throughout. He has difficulty ambulating with a walker. He denies bowel/bladder dysfunction . There is pain to palpation over the facets from L2-L5 and left SI joint, as well as the left hip. There is limited ROM to the LS spine and the left hip. Left SLR is positive at 20 degrees. He suffers with chronic vertigo. - Routine Psychiatric Exam Present: normal affect, cooperative, good insight, good judgment Assessment and Plan - Plan I have reviewed the clinical and radiological findings Lumbar Spine CT 05/25/18 08:24 CONCLUSION: 1. Severe degenerative disc disease at L5-S1 with a small left paracentral disc protrusion and containing gas. This finding is new and abuts the left S1 nerve root. There is no spinal canal stenosis at this level but there is moderate bilateral neural foraminal narrowing. 2. All of the remaining levels demonstrate stable changes, as above, without spinal canal stenosis. 3. Severe atherosclerotic disease. Neuro: neuro checks in a serial fashion. Recommend MRI lumbar sine. Nonoperative management for now Pulmonary: aggressive pulmonary toilette, nasotracheal suction, and breathing treatments with nebulizers. Analgesics and physical therapy Renal: Continue to monitor closely urine output, BUN and creatinine Endocrine: Continue to Monitor serial Acu checks and SSI as needed in detail ID continue to monitor for signs of infection Continue Protonix for stress ulcer prophylaxis Continue Raghu hose and SCD's for DVT prophylaxis Further recommendations will be provided depending on the patient's clinical evaluation and follow up studies. 05/27 I discussed with the patient the need for further imaging of his LS spine and left hip. He understands and is agreeable. I met with the neuroradiologist Dr Boone and we reviewed the case and he will facilitate obtaining the MRI scans of the left hip and LS spine. Depending on the results will determine the appropriate further diagnostic and therapeutic approach. Neurosurgery will follow. Simone Strauss MD 05/28 Plan 72-year-old male admitted with acute worsening of low back pain with left sided lumbar radiculopathy. multiple conservative mx approaches including injections referred for inpatient mx and surgical intervention. Lt L3 radiculopathy with worsening symptoms. - Continue frequent neuro checks. - MRI shows an L3/4 broad based disc bulge eccentric to the left with some compression of the ipsilateral nerve root - Would add Gabapentin (300 mg. po TID to start) for neuropathic pain and Robaxin ( 750 mg. po TID), for muscle spasm to this patient's Pain regimen - continue bowel regimen. - Plan per Dr. Curiel ( Neurosurgery), who will return tomorrow
[2018-05-28] MEDS: Bisacodyl 10 MG Supp RECTAL PRN (14:36)
[2018-05-28] MEDS ORDERED: Insulin NovoLOG Aspart Correctional Sugar Inj SQ SCH (18:29)
[2018-05-28] MEDS: Prazosin HCl 1 MG Capsule PO SCH (20:25)
[2018-05-28] MEDS: Temazepam 15 MG Capsule PO PRN (20:26)
[2018-05-28] MEDS: Insulin Detemir Inj 1,000 UNIT/10 ML Vial SQ SCH (20:27)
[2018-05-29] MEDS: Morphine Inj 4 MG/ML Vial IV.PUSH PRN ×4 (00:42→13:28)
[2018-05-29] MEDS: Heparin - SQ 10,000 UNITS/ML Vial SQ SCH (02:40)
[2018-05-29] MEDS: Insulin NovoLOG Aspart Correctional Sugar Inj SQ SCH ×6 (08:01→21:47)
[2018-05-29] MEDS: amLODIPine 10 MG Tablet PO SCH (08:06)
[2018-05-29] MEDS: Senna/Docusate Sodium 8.6/50 MG Tablet PO SCH ×2 (08:24→21:47)
--- NOTE | 2018-05-29 09:47 | P.PNNS ---
Subjective Interval history: continues to complain severe low back and left lateral hip pain. MRI lumbar and left hip completed. <Latoya Jennings - Last Filed: 05/29/18 10:38> Physical Exam Vital signs: Vital Signs 05/28/18 16:00 05/28/18 20:00 05/29/18 00:00 Temperature 97.2 F L 97.9 F 97.8 F Pulse Rate 99 H 91 H 84 Respiratory Rate 20 18 18 Blood Pressure 139/67 126/82 151/86 H Pulse Oximetry 98 96 96 05/29/18 04:00 05/29/18 08:00 Temperature 97.9 F 97.3 F L Pulse Rate 85 91 H Respiratory Rate 18 20 Blood Pressure 135/83 121/73 Pulse Oximetry 96 97 Intake & Output 05/28/18 05/29/18 05/29/18 18:59 06:59 18:59 Intake Total 560 / 560 Output Total 1800 / 1800 550 / 550 Balance -1240 / -1240 -550 / -550 Weight 86.7 kg Intake: Oral 560 / 560 Output: Urine 1800 / 1800 550 / 550 Other: # Voids 1 # Bowel Movements 1 1 Narrative: Alert and oriented x3 Speech-fluent appears uncomfortable due to pain Motor examination is 5+/5+ throughout. Sensory examination reveals diminished pin over the left lateral thigh and is otherwise intact throughout. DTR's are 1+ to 2+ throughout. There is pain to palpation over the facets from L2-L5 and left SI joint, as well as the left hip. There is limited ROM to the LS spine and the left hip. Left SLR is positive at 20 degrees. He suffers with chronic vertigo. <Latoya Jennings - Last Filed: 05/29/18 10:38> Vital signs: Vital Signs 05/30/18 13:00 05/30/18 13:10 05/30/18 13:14 Temperature 97.9 F Pulse Rate 88 90 Respiratory Rate 17 14 Blood Pressure 159/93 H 150/83 H Pulse Oximetry 100 99 99 05/30/18 13:39 05/30/18 16:00 05/30/18 16:03 Temperature 97.2 F L 97.7 F Pulse Rate 80 109 H Respiratory Rate 16 18 Blood Pressure 149/85 H 121/78 Pulse Oximetry 96 99 05/30/18 20:00 05/30/18 21:23 05/30/18 22:20 Temperature 97.8 F 97.6 F Pulse Rate 100 H 117 H Respiratory Rate Blood Pressure 132/69 127/93 H Pulse Oximetry 96 98 05/30/18 23:17 05/31/18 00:00 05/31/18 04:00 Temperature 97.7 F 97.8 F 97.3 F L Pulse Rate 102 H 93 H 90 Respiratory Rate 18 Blood Pressure 125/85 147/83 H 153/96 H Pulse Oximetry 96 94 L 94 L 05/31/18 07:00 05/31/18 07:30 05/31/18 08:00 Temperature 97.9 F 97.9 F Pulse Rate 103 H 91 H Respiratory Rate 18 Blood Pressure 161/101 H 156/96 H 142/90 H Pulse Oximetry 97 98 Intake & Output 05/30/18 05/31/18 05/31/18 18:59 06:59 18:59 Intake Total 1650 / 1650 1530 / 1530 Output Total 900 / 900 600 / 600 400 / 400 Balance 750 / 750 930 / 930 -400 / -400 Weight 88.8 kg Intake: IV 50 / 50 1050 / 1050 NS Inj 1,000 ML @ 100 mls/hr IV 1000 / 1000 .CONT .Q10H MAURICE Rx#:[id number] Ancef 2 GM Premix Inj 2 gm In 50 / 50 50 / 50 50 ml @ 100 mls/hr IV.SIG Q8H [facility] Rx#:[id number] Oral 480 / 480 Anesthesia Amount 1600 / 1600 Output: Urine 900 / 900 600 / 600 400 / 400 Other: Date of Last Bowel Movement 05/28/18 05/28/18 05/28/18 Narrative: Mr Khalil is alert, awake. Comfortable, in no acute distress. Speech is fluent. Cranial nerve examination: pupils to be equal, round and reactive to light. Extra-ocular movements are intact. Facial motor and sensory function are normal and symmetrical. Gross hearing appears intact. Sternocleidomastoid and trapezius muscles are symmetrical. Other cranial nerves are intact. Neck is soft and supple with a good range of motion without pain. Muscle strength is normal in all muscle groups of both upper extremities, give away due to pain in his lower extremities, 4/5 left ilipsoas and quadriceps., 4+ /5 in all other groups. Sensory examination is intact to light touch and pin prick in both upper extremities and decreased in a left L4 dermatomal distribution. Deep tendon reflexes are symmetrical 2+ in both upper extremities, absent left knee, trace on ankles. There is a bilateral plantar flexion response. Cerebellar examination is unremarkable, without deficits. Lungs are clear Heart regular rhythm is regular rate Skin warm and dry <Avery Curiel - Last Filed: 05/31/18 13:01> Assessment and Plan - Plan 72 year old male with lumbar radicular pain Hip MRI 05/27/18 00:00 CONCLUSION: 1. No abnormality is identified to explain the clinical symptoms. 2. Mild left hip joint osteoarthritis with small joint effusion. Lumbar Spine MRI 05/27/18 00:00 CONCLUSION: 1. Mild disc bulge at the L3-L4 level being asymmetric and worse on the left causing narrowing of the left neural foramina. 2. Loss of disc space height at the L5-S1 level. There is mild facet hypertrophy. There is mild narrowing of the neural foramina at this level. 3. Mild central disc protrusion or bulge at the T11-T12 level seen on the sagittal images. There continues to be CSF around the cord. Dr. Curiel discussed MRI findings with patient, discussed option of continuing conservative treatment vs surgery patient requests to proceed with surgery for laminectomy, microdiscectomy plan to OR tomorrow NPO tonight <Latoya Jennings - Last Filed: 05/29/18 10:38> - Plan I reviewed his radiological studies Hip MRI 05/27/18 00:00 CONCLUSION: 1. No abnormality is identified to explain the clinical symptoms. 2. Mild left hip joint osteoarthritis with small joint effusion. Lumbar Spine MRI 05/27/18 00:00 CONCLUSION: 1. Mild disc bulge at the L3-L4 level being asymmetric and worse on the left causing narrowing of the left neural foramina. 2. Loss of disc space height at the L5-S1 level. There is mild facet hypertrophy. There is mild narrowing of the neural foramina at this level. 3. Mild central disc protrusion or bulge at the T11-T12 level seen on the sagittal images. There continues to be CSF around the cord. I again discussed with him the alternatives of treatment including, conservative management, pain management by an interventional interventional pain physician, or a surgical decompression, which should always be a last resort. He understands that a surgical procedure should be considered as a last resort. He has failed nonoperative treatment. Unfortunately, his symptoms are getting worse and continue to affect her activities of daily living. I discussed with him the alternative of continuing nonsurgical treatment with further pain management and physical therapy, analgesics, and antiimflammatories , versus consideration to a surgical decompression with a left L3-4 hemilaminectomy, mesiofacetectomy, foraminotomy with microsurgical resection of the disk. . Using the patients radiologic studies, anatomical model(s) I have discussed the details of the surgical decompression including the [id number] procedure, its indications, alternatives, risks, and potential complications. Risks and potential complications include, but are not limited to, infection, blood loss, CSF leak, partial or complete loss of sight in one or both eyes, paresis, paralysis, permanent pain, hoarseness or difficulty swallowing, loss of bowel or bladder function, complications from anesthesia, blood clot, stroke , myocardial infarction, or even . I explained to Mr. Khalil that before reaching a decision in regards to surgery , he should consider the alternatives, including the possibility of no treatment. Pulmonary: aggressive pulmonary toilette, nasotracheal suction, and breathing treatments with nebulizers. Daily PT and OT Renal: Continue to monitor closely urine output, BUN and creatinine Endocrine: Continue to Monitor serial Acu checks and SSI as needed in detail ID continue to monitor for signs of infection Continue Protonix for stress ulcer prophylaxis Continue Raghu hose and SCD's for DVT prophylaxis Further recommendations will be provided depending on the patient's clinical evaluation and follow up studies. The exam, history, and the medical decision-making described in the above note were completed with the assistance of the mid-level provider. I reviewed and agree with the findings presented. I attest that I had a [id number] encounter with the patient on the same day, and personally performed and documented my assessment and findings in the medical record. <Avery Curiel - Last Filed: 05/31/18 13:01>
[2018-05-29] MEDS ORDERED: HYDROmorphone PF Inj 2 MG/ML Vial IV.PUSH ONE (11:26)
[2018-05-29] MEDS ORDERED: Mineral Oil Enema 118 ML Bottle RECTAL PRN (11:26)
--- NOTE | 2018-05-29 11:30 | P.PNIM ---
Subjective Interval history: still in a lot of pain. no change despite increased dose of pain medication. constipated,requesting enema. Physical Exam Vital signs: Last Vital Signs Temp 97.3 F L 05/29/18 08:00 Pulse 91 H 05/29/18 08:00 Resp 20 05/29/18 08:00 BP 121/73 05/29/18 08:00 Pulse Ox 97 05/29/18 08:00 Intake & Output 05/27/18 05/28/18 05/29/18 05/30/18 06:59 06:59 06:59 06:59 Intake Total 960 / 960 240 / 240 560 / 560 Output Total 1250 / 1250 1700 / 1700 2350 / 2350 Balance -290 / -290 -1460 / -1460 -1790 / -1790 Weight 88.5 kg 88.5 kg 86.7 kg Narrative: GEN: Elderly male, appears to be in discomfort laying on his right side. HEENT: not pale,anicteric Cardio: RRR, Normal S1/S2, No murmurs Lungs: Clear to Auscultation Anteriorly/Posteriorly Bilaterally, No rales/ rhonchi/crackles/wheezes GI: +BS all 4 quadrants, Abdomen Soft, Nondistended, Nontender, No rebound or guarding, No organomegaly or masses Neuro: Alert, Oriented x4 Skin: Scattered Petechiae and Purpura seen bilaterally throughout Upper Extremity; No jaundice or rash Results Labs CBC & Chem 7: 05/26/18 06:20 05/26/18 06:20 Assessment and Plan Plan 72-year-old male admitted with acute worsening of lumbar radiculopathy. multiple conservative mx approaches including injections referred for inpatient mx and surgical intervention. L5-S1 radiculopathy with worsening symptoms. - Continue neuro checks. -MRI results noted. - Neurosurgery following. - Increased Percocet 5/325mg to 2 tabs q4h prn,cont Morphine IV 4mg q4h prn for breakthrough pain. given Dilaudid 2mg one time. -keep on bowel regimen. Ordered fleet enema q24h prn constipation. He is planned for microdiscectomy on 05/30. NPO after MN. Type 2 Diabetes - stable -Continue Home Meds - NF Lantus 25units SubQ q HS keep pre meal aspart 15 units tid ac -Sliding scale insulin with Accu-Cheks HTN - stable, controlled w/ home meds Continue Home Meds - Amlodipine 10mg once daily, Chlorthalidone 12.5mg once daily Hyperlipidemia Continue Home Meds - Rosuvastatin 40mg once daily GERD - Continue Home Meds - Omeprazole 40mg twice daily BPH - stable, controlled w/ home meds Continue Home Meds - Prazosin 3mg PO q HS PTSD - stable, controlled w/ home meds Continue Home Meds - Duloxetine 60mg once daily DVT Prophylaxis - Heparin Progress Note: Quality VTE Deep Vein Thrombosis/Pulmonary Embolism Present on Admission: No
[2018-05-29] MEDS ORDERED: ceFAZolin 2 GM Premix Inj 2 GM/50 ML PIGGYBACK IV.SIG PRN (17:39)
[2018-05-29] MEDS: Bisacodyl 10 MG Supp RECTAL PRN (18:31)
[2018-05-29] MEDS: Insulin Detemir Inj 1,000 UNIT/10 ML Vial SQ SCH (21:43)
[2018-05-29] MEDS: Prazosin HCl 1 MG Capsule PO SCH (21:45)
[2018-05-29] MEDS: Temazepam 15 MG Capsule PO PRN (22:04)
[2018-05-30] MEDS: Morphine Inj 4 MG/ML Vial IV.PUSH PRN ×3 (06:05→20:10)
[2018-05-30] MEDS ORDERED: Bupivacaine/Epinephrine 0.5% Inj 50 ML Vial ONE (07:19)
[2018-05-30] MEDS ORDERED: Thrombin Topical Soln 5,000 UNIT Vial TOPICAL ONE (07:19)
[2018-05-30] MEDS ORDERED: methylPREDNISolone acetate 40 MG/ML VIAL ONE (07:19)
[2018-05-30] MEDS ORDERED: Gelatin Size 100 Topical Foam ONE (07:19)
[2018-05-30] MEDS ORDERED: Artificial Tears Opth Oint 3.5 GM Tube ONE ×2 (09:29→09:32)
[2018-05-30] MEDS ORDERED: ceFAZolin 1 GM Premix Inj 2 GM/100 ML PIGGYBACK IV.SIG ONE (09:31)
--- NOTE | 2018-05-30 11:40 | P.PNIM ---
Subjective Interval history: Patient with complaints of left hip and lower back pain. Physical Exam Vital signs: Vital Signs 05/29/18 12:00 05/29/18 16:00 05/29/18 20:00 Temperature 97.8 F 97.4 F L 97.7 F Pulse Rate 94 H 105 H 93 H Respiratory Rate 18 18 18 Blood Pressure 121/91 H 129/91 H 151/90 H Pulse Oximetry 96 98 98 05/30/18 00:00 05/30/18 04:00 05/30/18 08:00 Temperature 97.8 F 97.6 F 98.2 F Pulse Rate 97 H 93 H 101 H Respiratory Rate 20 20 18 Blood Pressure 143/88 H 119/71 150/90 H Pulse Oximetry 98 98 99 Intake & Output 05/29/18 05/30/18 05/30/18 18:59 06:59 18:59 Intake Total 720 / 720 Output Total 225 / 225 Balance 720 / 720 -225 / -225 Weight 86.6 kg Intake: Oral 720 / 720 Output: Urine 225 / 225 Other: Date of Last Bowel Movement 05/24/18 05/24/18 Narrative: General patient with complaints of lower back pain with radiation towards the left hip. HEENT extraocular movements are intact, clear oropharyngeal mucosa, no JVD Cardiovascular S1-S2 audible, RRR, no murmurs rubs or gallops Respiratory clear to auscultation bilaterally Abdomen soft, nontender, nondistended, normal bowel sounds Extremities no edema 2+ distal pulses in bilateral upper and lower extremities Neuro no focal neurological deficits. Results - Labs CBC & Chem 7: 05/26/18 06:20 05/26/18 06:20 Laboratory Results - last 24 hr 05/29/18 05/29/18 05/29/18 12:05 17:32 18:04 POC Glucose 194 H 56 L 458 H* 05/29/18 05/29/18 05/30/18 18:06 20:11 07:27 POC Glucose 136 H 204 H 149 H Assessment and Plan - Plan This patient is a 72-year-old male with a diagnosis of type 2 diabetes, hypertension, dyslipidemia, gastroesophageal reflux disease, BPH, posttraumatic stress disorder who was admitted with acute worsening of lumbar radiculopathy. 1. L5-S1 radiculopathy with worsening symptoms Patient with complaints of severe lower back pain and left lateral hip pain. Hip MRI showed mild left hip joint osteoarthritis as well as a small joint effusion. Lumbar spine MRI shows mild disc bulge at L3-L4, worse in the left. Loss of disc space L5-S1. Central disc protrusion at T11-T12. Neurosurgery discussed the findings with the patient and the patient wants to proceed with surgery for laminectomy. Plan is for the patient to go to the OR today. We will follow-up with recommendations from neurosurgery after the procedure. Continue medications for pain management. Patient currently on Percocet, IV morphine for breakthrough pain. 2. Type 2 diabetes Patient on Lantus at bedtime. Continue pre-meal insulin 3 times daily. Low- dose insulin sliding scale. Patient's diabetes medication regimen will be adjusted as needed. Blood sugars running between 56-458 over the last 24 hrs. I will continue to monitor the blood sugars today and adjust them as needed. Most of the blood sugar readings are between 130 and 204. 3. Hypertension Continue current medication regimen. 4. Dyslipidemia Continue statin. 5. Gastroesophageal reflux disease Continue PPI. 6. BPH Continue prazosin 7. Posttraumatic stress disorder Continue duloxetine. DVT prophylaxis, heparin currently on hold as the patient will undergo surgery today.
--- NOTE | 2018-05-30 12:18 | ECG ---
Date Performed: 05/30/2018 Time Performed: 08:27:54 PTAGE: 72 years EKG: Sinus rhythm Extensive ST-T changes are nonspecific Borderline ECG NO PREVIOUS TRACING DOCTOR: Sandoval Pineda Interpretating Date/Time 05/30/2018 12:18:03
[2018-05-30] MEDS ORDERED: Sugammadex Inj 200 MG/2 ML Vial IV.PUSH ONE (12:19)
[2018-05-30] MEDS ORDERED: *Meperidine Inj 25 MG/ML Vial PERIprocedural Use ONLY ONE (12:33)
[2018-05-30] MEDS ORDERED: fentaNYL Citrate Inj 100 MCG/2 ML Ampul ONE ×2 (12:36→12:37)
[2018-05-30] MEDS ORDERED: Morphine Inj 4 MG/ML Vial ONE (12:37)
[2018-05-30] MEDS ORDERED: Morphine Sulfate Inj 2 MG/ML Vial IV.PUSH PRN (12:53)
[2018-05-30] MEDS ORDERED: Bisacodyl 10 MG Supp RECTAL PRN (12:53)
--- NOTE | 2018-05-30 12:54 | XR ---
EXAM DATE: 05/30/2018 12:41 PM EST AGE/SEX: 72 years / Male INDICATIONS: Laminectomy, herniated disk. CLINICAL DATA: This is the patient's initial encounter. Patient reports that signs and symptoms have been present for 1 day and indicates a pain score of Nonresponsive. MEDICAL/SURGICAL HISTORY: None. None. COMPARISON: [facility], XR SPINE LUMBAR (MIN 4 VIEWS), 11/10/2015. . FINDINGS: A single coned-down view of the lower lumbar spine was obtained intraoperatively using a matrix camer a. This demonstrates posterior spinal retractors in place with a metal probe projected posterior to t he L3-4 interspace. Degenerative disc changes are present at the L3-4 and L5-S1 levels with disc spac e narrowing and hypertrophic change. CONCLUSION: Limited localization study as described. Electronically signed by: Og Cesar MD 05/30/2018 12:52 PM EST
--- NOTE | 2018-05-30 13:07 | P.OP ---
Preoperative Diagnosis: Lumbar spinal stenosis, disk herniation at L3-4 Postoperative Diagnosis: Lumbar spinal stenosis, disk herniation at L3-4 Date of procedure: 05/30/18 Procedure: L3-4 left hemilaminectomy, mesiofacetectomy, foraminotomy, microsurgical resection of the disk Anesthesia: RODNEY Surgeon: Avery Curiel MD Fire Behavior Analyst: Roz Espinosa Pathology: none sent Operation and Findings: INDICATIONS FOR THE SURGICAL PROCEDURE Mr chicas is a 72 year-old male male who presented with intractable mechanical back pain and clinical evidence of left L4 lower extremity radiculopathy. He was found to have significant lumbar spinal stenosis with a left L3-4 disk protusion causing significant mass effect on the neural structures which correlated with the clinical symptoms. The patient has failed maximum nonsurgical management including multiple modalities of conservative treatment as well as pain management interventions by an interventional pain specialist. A surgical decompression was indicated as a last resort. The [id number] details of the procedure, indications, alternatives, risks and potential complications were fully discussed with the patient. The patient fully understood. All the questions were answered. No guarantees were given. The patient voiced requesting the procedure and provided informed consents. The patient was offered the alternative of delaying the procedure and continuing with nonsurgical management. DETAILS OF THE SURGICAL PROCEDURE After the induction of general anesthesia, endotracheal intubation was performed. A Guevara catheter, bilateral EGOFF hose and sequential compression devices were placed and kept throughout the procedure. The patient was positioned prone on a Brenton table over a Shashank frame. All pressure points were carefully padded with eggcrate mattress. The eyes were tapped shut after ointment was applied by the anesthesiologist to prevent corneal abrasion. A Flaco hugger was placed over the exposed lower body to maintain control of the core body temperature. The lower lumbar region was prepped and draped in the usual sterile fashion. A spinal needle was placed for localization and an x- ray performed with a C-arm. A skin incision was made in the midline over the spinous processes L3-L4 with a #10 blade. Small subcutaneous bleeders were controlled with a bipolar and the dissection was carried out through the lumbar fascia exposing the spinous processes. A subperiostial dissection was performed with a Jack elevator and a Bovie over the left L3-L4 spinous process lamina and facets. A microdiscectomy self-retaining retractor was placed on the incision and an x-ray was obtained with an instrument placed underneath the lamina of L4. At this point in the procedure the operating microscope was draped in the usual sterile fashion and brought to the field. The rest of the surgical procedure was performed using microsurgical dissection technique with exception of the closure. Once the level was confirmed, a decompressive laminectomy was performed at L3- L4 on the left side using the TPS drill with an 4mm drill bit. A medial facetectomy was performed and the superior free border of the ligamentum flavum was dissected with a ligament dissector and removed with a thin footplate 2 mm Kerrison. The medial facetectomy was done and the L4 nerve root was identified and followed towards its exit in the foramen. Epidural veins located laterally to the dural sac were coagulated with a bipolar and incised with microscissors. Gentle medial retraction of the dural sac allowed inspection of the disc space. The patient had severe facet arthropathy with hypertrhopy of the joint facets and ligamentum flavum resulting in mass effect over the dural sac and nerve roots. In addition, there was a disc protusion, contributing to the stenosis. The annulus fibrosus of the disc was coagulated with the bipolar and incised with an 11 blade. The extruded disc was carefully dissected from the surrounding tissue and removed with pituitary forceps. Then, a microdiscectomy was carried out in the standard fashion using straight and up-biting pituitary forceps. A good decompression of the dural sac and nerve root was achieved. The exit of the nerve root was inspected for residual disc fragments and hemostasis was secured with the bipolar. The incision was irrigated with a large amount of saline solution. A Valsalva maneuver failed to show any cerebrospinal fluid leak or bleeding. The decompression was assessed again and found to be satisfactory. The incision was then closed in layers. The fascia was closed with 0 Vicryl sutures in an interrupted fashion. The superficial fascia was closed with 0 Vicryl sutures. The fascia was infiltrated with 0.5% Marcaine with epinephrine 1:100,000 dilution. The subcutaneous tissue was irrigated then closed with 0 Vicryl and 3 -0 Vicryl. The skin was closed with 4-0 running subcuticular Vicryl. A sterile dressing was applied. At the end of the procedure, the sponge, needle and instrument counts were all correct. Estimated blood loss was less than 60 cc. No blood transfusion was given. No intraoperative complications occurred. The patient received prophylactic antibiotics. The patient was then extubated and transferred to the recovery room in stable condition.
[2018-05-30] MEDS: Sod Chloride 0.9% Inj 1,000 ML IV.CONT SCH (13:10)
[2018-05-30] MEDS: Insulin NovoLOG Aspart Correctional Sugar Inj SQ SCH ×7 (13:31→20:14)
[2018-05-30] MEDS: amLODIPine 10 MG Tablet PO SCH (13:58)
[2018-05-30] MEDS: ceFAZolin 2 GM Premix Inj 2 GM/50 ML PIGGYBACK IV.SIG SCH (18:15)
[2018-05-30] MEDS: Insulin Detemir Inj 1,000 UNIT/10 ML Vial SQ SCH (20:13)
[2018-05-30] MEDS: Senna/Docusate Sodium 8.6/50 MG Tablet PO SCH (20:13)
[2018-05-30] MEDS: Prazosin HCl 1 MG Capsule PO SCH (20:13)
--- NOTE | 2018-05-30 23:45 | XR ---
EXAM DATE: 05/30/2018 11:37 PM EST AGE/SEX: 72 years / Male INDICATIONS: Trauma. Patient fell on nursing stall now c/o left hip pain. CLINICAL DATA: This is the patient's initial encounter. Patient reports that signs and symptoms have been present for 1 day and indicates a pain score of 7/10. MEDICAL/SURGICAL HISTORY: . Herniated disk. . Laminectomy. COMPARISON: No prior exams available for comparison. FINDINGS: 3 views of the left hip and pelvis. Bone alignment within normal limits. No evidence of fracture. Mil d superior acetabular subchondral sclerosis and minimal superior left hip joint narrowing. CONCLUSION: 1. No evidence fracture. 2. Mild osteoarthritic findings left hip. Electronically signed by: Win Simpson MD 05/30/2018 11:44 PM EST
[2018-05-31] MEDS: ceFAZolin 2 GM Premix Inj 2 GM/50 ML PIGGYBACK IV.SIG SCH ×2 (01:21→09:10)
[2018-05-31] MEDS: Morphine Inj 4 MG/ML Vial IV.PUSH PRN (01:21)
[2018-05-31] MEDS: Sod Chloride 0.9% Inj 1,000 ML IV.CONT SCH ×4 (01:22→20:31)
--- NOTE | 2018-05-31 05:30 | CT ---
EXAM DATE: 05/31/2018 5:17 AM EST AGE/SEX: 72 years / Male INDICATIONS: Fall. Altered mental status. CLINICAL DATA: This is the patient's initial encounter. Patient reports that signs and symptoms have been present for 1 day and indicates a pain score of 0/10. MEDICAL/SURGICAL HISTORY: Cardiovascular disease. Hypertension. Diabetes mellitus type II. CABG. Cholecystectomy. Appendectomy. RADIATION DOSE: 56.35 CTDI (mGy) COMPARISON: No prior exams available for comparison. TECHNIQUE: CT of the head without contrast. Using automated exposure control and adjustment of the mA and/or kV according to patient size, radiation dose was kept as low as reasonably achievable to ob tain optimal diagnostic quality images. DICOM format image data is available electronically for revi ew and comparison. FINDINGS: Cerebrum: Diffuse prominence of the ventricles, sulci, and cisterns indicating diffuse atrophy. Anitra ventricular white matter hypodensity indicating chronic small vessel ischemic change.. No evidence o f midline shift, mass lesion, hemorrhage or acute infarction. No extraaxial fluid collections are se en. Posterior Fossa: The cerebellum and brainstem are intact. The 4th ventricle is midline. The cerebe llopontine angle is unremarkable. Extracranial: The visualized portion of the orbits is intact. Skull: The calvaria is intact. No evidence of skull fracture. CONCLUSION: No acute intracranial findings. . Electronically signed by: Win Simpson MD 05/31/2018 5:29 AM EST
[2018-05-31] MEDS: Senna/Docusate Sodium 8.6/50 MG Tablet PO SCH ×2 (09:10→20:42)
[2018-05-31] MEDS: Insulin NovoLOG Aspart Correctional Sugar Inj SQ SCH ×7 (09:10→20:42)
[2018-05-31] MEDS: amLODIPine 10 MG Tablet PO SCH (09:10)
--- NOTE | 2018-05-31 10:34 | P.PNIM ---
Subjective Interval history: Patient complains of lower back pain. He states that he suffered a ground- level fall yesterday he hit his head. Patient is also upset that his back brace was not placed yesterday. Physical Exam Vital signs: Vital Signs 05/30/18 12:24 05/30/18 12:30 05/30/18 12:45 Temperature 97.9 F Pulse Rate 107 H 100 H 89 Respiratory Rate 14 14 13 Blood Pressure 121/77 141/80 H 147/91 H Pulse Oximetry 98 98 100 05/30/18 13:00 05/30/18 13:10 05/30/18 13:14 Temperature 97.9 F Pulse Rate 88 90 Respiratory Rate 17 14 Blood Pressure 159/93 H 150/83 H Pulse Oximetry 100 99 99 05/30/18 13:39 05/30/18 16:00 05/30/18 16:03 Temperature 97.2 F L 97.7 F Pulse Rate 80 109 H Respiratory Rate 16 18 Blood Pressure 149/85 H 121/78 Pulse Oximetry 96 99 05/30/18 20:00 05/30/18 21:23 05/30/18 22:20 Temperature 97.8 F 97.6 F Pulse Rate 100 H 117 H Respiratory Rate 18 18 22 Blood Pressure 132/69 127/93 H Pulse Oximetry 96 98 05/30/18 23:17 05/31/18 00:00 05/31/18 04:00 Temperature 97.7 F 97.8 F 97.3 F L Pulse Rate 102 H 93 H 90 Respiratory Rate 20 18 18 Blood Pressure 125/85 147/83 H 153/96 H Pulse Oximetry 96 94 L 94 L 05/31/18 07:00 05/31/18 07:30 05/31/18 08:00 Temperature 97.9 F 97.9 F Pulse Rate 103 H 91 H Respiratory Rate 22 18 Blood Pressure 161/101 H 156/96 H 142/90 H Pulse Oximetry 97 98 Intake & Output 05/30/18 05/31/18 05/31/18 18:59 06:59 18:59 Intake Total 1650 / 1650 1530 / 1530 Output Total 900 / 900 600 / 600 400 / 400 Balance 750 / 750 930 / 930 -400 / -400 Weight 88.8 kg Intake: IV 50 / 50 1050 / 1050 NS Inj 1,000 ML @ 100 mls/hr IV 1000 / 1000 .CONT .Q10H [facility] Rx#:[id number] Ancef 2 GM Premix Inj 2 gm In 50 / 50 50 / 50 50 ml @ 100 mls/hr IV.SIG Q8H [facility] Rx#:[id number] Oral 480 / 480 Anesthesia Amount 1600 / 1600 Output: Urine 900 / 900 600 / 600 400 / 400 Other: Date of Last Bowel Movement 05/28/18 05/28/18 Narrative: General patient with complaints of lower back pain with radiation towards the left hip. HEENT atraumatic normocephalic. Cardiovascular S1-S2 audible, RRR, no murmurs rubs or gallops Respiratory clear to auscultation bilaterally Abdomen soft, nontender, nondistended, normal bowel sounds Patient with lower back pain and pain in the left lower ext mostly in left hip. Extremities no edema 2+ distal pulses in bilateral upper and lower extremities Neuro no focal neurological deficits. Results - Labs CBC & Chem 7: 05/26/18 06:20 05/26/18 06:20 Laboratory Results - last 24 hr 05/30/18 05/30/18 05/30/18 12:44 13:38 17:42 POC Glucose 171 H 222 H 182 H 05/30/18 05/31/18 19:33 08:18 POC Glucose 183 H 209 H - Imaging Impressions Hip X-Ray 05/30/18 00:00 CONCLUSION: 1. No evidence fracture. 2. Mild osteoarthritic findings left hip. Lumbar Spine X-Ray 05/30/18 00:00 CONCLUSION: Limited localization study as described. Head CT 05/31/18 00:00 CONCLUSION: No acute intracranial findings. . Assessment and Plan - Plan This patient is a 72-year-old male with a diagnosis of type 2 diabetes, hypertension, dyslipidemia, gastroesophageal reflux disease, BPH, posttraumatic stress disorder who was admitted with acute worsening of lumbar radiculopathy. As per nursing staff patient suffered a ground-level fall yesterday. CT scan of the head was done which was negative. Patient says he has been having lower back pain and after the fall last night he feels that the pain is worse. Patient advised to ask for assistance when getting up. Back brace not put on yesterday. Will follow up with neurosurgery regarding plan of care for this patient. 1. L5-S1 radiculopathy status post neurosurgical intervention Patient underwent L3-4 left hemilaminectomy, mesiofacetectomy, foraminotomy, microsurgical resection of the disk yesterday Complains of lower back pain. We will follow-up with recommendations from neurosurgery. Prior to the procedure hip MRI showed mild left hip joint osteoarthritis as well as a small joint effusion. Lumbar spine MRI shows mild disc bulge at L3-L4, worse in the left. Loss of disc space L5-S1. Central disc protrusion at T11-T12. Continue medications for pain management. Patient currently on Percocet, IV morphine for breakthrough pain. 2. Type 2 diabetes Patient on Lantus at bedtime. Continue pre-meal insulin 3 times daily. Low- dose insulin sliding scale. Patient's diabetes medication regimen will be adjusted as needed. Blood sugars running between 140 and low 200s. I will continue to monitor the blood sugars today and adjust them as needed. 3. Hypertension Continue amlodipine. The patient will also be started on metoprolol today. 4. Dyslipidemia Continue statin. 5. Gastroesophageal reflux disease Continue PPI. 6. BPH Continue prazosin 7. Posttraumatic stress disorder Continue duloxetine. DVT prophylaxis, heparin for DVT prophylaxis.
[2018-05-31] MEDS: Bisacodyl 10 MG Supp RECTAL PRN (12:10)
--- NOTE | 2018-05-31 12:57 | P.PNNS ---
Subjective Interval history: reportedly fell twice overnight as he got up on his own to go to the bathroom. today complaining of severe pain in his left lateral hip, lateral buttocks. Physical Exam Vital signs: Vital Signs 05/30/18 13:00 05/30/18 13:10 05/30/18 13:14 Temperature 97.9 F Pulse Rate 88 90 Respiratory Rate 17 14 Blood Pressure 159/93 H 150/83 H Pulse Oximetry 100 99 99 05/30/18 13:39 05/30/18 16:00 05/30/18 16:03 Temperature 97.2 F L 97.7 F Pulse Rate 80 109 H Respiratory Rate 16 18 Blood Pressure 149/85 H 121/78 Pulse Oximetry 96 99 05/30/18 20:00 05/30/18 21:23 05/30/18 22:20 Temperature 97.8 F 97.6 F Pulse Rate 100 H 117 H Respiratory Rate 18 18 22 Blood Pressure 132/69 127/93 H Pulse Oximetry 96 98 05/30/18 23:17 05/31/18 00:00 05/31/18 04:00 Temperature 97.7 F 97.8 F 97.3 F L Pulse Rate 102 H 93 H 90 Respiratory Rate 20 18 18 Blood Pressure 125/85 147/83 H 153/96 H Pulse Oximetry 96 94 L 94 L 05/31/18 07:00 05/31/18 07:30 05/31/18 08:00 Temperature 97.9 F 97.9 F Pulse Rate 103 H 91 H Respiratory Rate 22 18 Blood Pressure 161/101 H 156/96 H 142/90 H Pulse Oximetry 97 98 Intake & Output 05/30/18 05/31/18 05/31/18 18:59 06:59 18:59 Intake Total 1650 / 1650 1530 / 1530 Output Total 900 / 900 600 / 600 400 / 400 Balance 750 / 750 930 / 930 -400 / -400 Weight 88.8 kg Intake: IV 50 / 50 1050 / 1050 NS Inj 1,000 ML @ 100 mls/hr IV 1000 / 1000 .CONT .Q10H [facility] Rx#:[id number] Ancef 2 GM Premix Inj 2 gm In 50 / 50 50 / 50 50 ml @ 100 mls/hr IV.SIG Q8H [facility] Rx#:[id number] Oral 480 / 480 Anesthesia Amount 1600 / 1600 Output: Urine 900 / 900 600 / 600 400 / 400 Other: Date of Last Bowel Movement 05/28/18 05/28/18 05/28/18 Narrative: wound with optifoam dressing in place moves left lower extremity 4/5 but limited due to complaints of hip pain Assessment and Plan - Plan 72 year old male with lumbar radiculopathy, s/p left L3-4 laminectomy, microdiscectomy 05/30/18 s/p fall x 2 on 05/30 Dr. Curiel requesting transfer to [facility] fall precautions discussed with patient to not get up on his own and ask for assistance
[2018-05-31] MEDS: Heparin - SQ 10,000 UNITS/ML Vial SQ SCH (16:06)
[2018-05-31] MEDS: Prazosin HCl 1 MG Capsule PO SCH (20:36)
[2018-05-31] MEDS: Metoprolol Tartrate 25 MG Tablet PO SCH (20:37)
[2018-05-31] MEDS: Insulin Detemir Inj 1,000 UNIT/10 ML Vial SQ SCH (20:41)
[2018-05-31] MEDS: Gabapentin 300 MG Capsule PO SCH (23:07)
[2018-06-01] MEDS: Sod Chloride 0.9% Inj 1,000 ML IV.CONT SCH ×3 (01:05→16:08)
[2018-06-01] MEDS: Heparin - SQ 10,000 UNITS/ML Vial SQ SCH ×2 (03:33→16:03)
[2018-06-01] MEDS: Senna/Docusate Sodium 8.6/50 MG Tablet PO SCH ×2 (08:24→20:01)
[2018-06-01] MEDS: Metoprolol Tartrate 25 MG Tablet PO SCH ×2 (08:24→19:59)
[2018-06-01] MEDS: Gabapentin 300 MG Capsule PO SCH ×3 (08:24→17:17)
[2018-06-01] MEDS: amLODIPine 10 MG Tablet PO SCH (08:24)
[2018-06-01] MEDS: Insulin NovoLOG Aspart Correctional Sugar Inj SQ SCH ×7 (08:25→21:16)
--- NOTE | 2018-06-01 12:28 | P.PNNS ---
Subjective Interval history: doing better this morning, still pain left hip and leg but improved from yesterday. Physical Exam Vital signs: Vital Signs 05/31/18 16:00 05/31/18 19:49 05/31/18 20:00 Temperature 97 F L 97.9 F Pulse Rate 93 H 86 Respiratory Rate 18 18 Blood Pressure 140/78 160/82 H Pulse Oximetry 95 97 97 05/31/18 23:33 06/01/18 03:31 06/01/18 08:00 Temperature 97.9 F 97.6 F 98.3 F Pulse Rate 75 84 83 Respiratory Rate 18 18 Blood Pressure 124/71 161/81 H 121/67 Pulse Oximetry 96 98 96 Intake & Output 05/31/18 06/01/18 06/01/18 18:59 06:59 18:59 Intake Total 2250 / 2250 2200 / 2200 Output Total 800 / 800 1100 / 1100 750 / 750 Balance 1450 / 1450 1100 / 1100 -750 / -750 Weight 88.8 kg Intake: IV 1050 / 1050 1000 / 1000 NS Inj 1,000 ML @ 100 mls/hr IV 1000 / 1000 1000 / 1000 .CONT .Q10H [facility] Rx#:[id number] Ancef 2 GM Premix Inj 2 gm In 50 / 50 50 ml @ 100 mls/hr IV.SIG Q8H [facility] Rx#:[id number] Oral 1200 / 1200 Other 1200 / 1200 Output: Urine 800 / 800 1100 / 1100 750 / 750 Other: # Voids 1 400 Date of Last Bowel Movement 05/28/18 05/28/18 05/28/18 # Bowel Movements 1 0 Narrative: Awake, alert appears comfortable in NAD moves lower extremities 5/5 slight giveaway left iliopsoas due to pain Assessment and Plan - Plan 72 year old male with lumbar radiculopathy, s/p left L3-4 laminectomy, microdiscectomy 05/30/18 s/p fall x 2 on 05/30 pain improving, better today cont physical therapy corset brace when out of bed dw patient again not to get up on his own without assistance dc planning to rehab
[2018-06-01] MEDS ORDERED: Insulin Detemir Inj 1,000 UNIT/10 ML Vial SQ SCH (16:29)
--- NOTE | 2018-06-01 16:31 | P.PNIM ---
Subjective Interval history: Patient says his back feels better today. Still has some pain. Otherwise no complaints. Physical Exam Vital signs: Vital Signs 05/31/18 19:49 05/31/18 20:00 05/31/18 23:33 Temperature 97.9 F 97.9 F Pulse Rate 86 75 Respiratory Rate 18 18 Blood Pressure 160/82 H 124/71 Pulse Oximetry 97 97 96 06/01/18 03:31 06/01/18 08:00 06/01/18 12:00 Temperature 97.6 F 98.3 F 98.4 F Pulse Rate 84 83 83 Respiratory Rate 19 18 18 Blood Pressure 161/81 H 121/67 126/63 Pulse Oximetry 98 96 97 Intake & Output 05/31/18 06/01/18 06/01/18 18:59 06:59 18:59 Intake Total 2250 / 2250 2200 / 2200 1000 / 1000 Output Total 800 / 800 1100 / 1100 1150 / 1150 Balance 1450 / 1450 1100 / 1100 -150 / -150 Weight 88.8 kg Intake: IV 1050 / 1050 1000 / 1000 1000 / 1000 NS Inj 1,000 ML @ 100 mls/hr IV 1000 / 1000 1000 / 1000 1000 / 1000 .CONT .Q10H [facility] Rx#:[id number] Ancef 2 GM Premix Inj 2 gm In 50 / 50 50 ml @ 100 mls/hr IV.SIG Q8H [facility] Rx#:[id number] Oral 1200 / 1200 Other 1200 / 1200 Output: Urine 800 / 800 1100 / 1100 1150 / 1150 Other: # Voids 1 400 Date of Last Bowel Movement 05/28/18 05/28/18 05/28/18 # Bowel Movements 1 0 Narrative: General patient says his back pain is better than yesterday. HEENT atraumatic normocephalic. Cardiovascular S1-S2 audible, RRR, no murmurs rubs or gallops Respiratory clear to auscultation bilaterally Abdomen soft, nontender, nondistended, normal bowel sounds Patient with lower back pain and pain in the left lower ext mostly in left hip. Extremities no edema 2+ distal pulses in bilateral upper and lower extremities Neuro no focal neurological deficits. Results - Labs CBC & Chem 7: 05/26/18 06:20 05/26/18 06:20 Laboratory Results - last 24 hr 05/31/18 05/31/1806/01/18 17:07 20:35 08:18 POC Glucose 272 H 129 H 160 H 06/01/18 12:12 POC Glucose 291 H Assessment and Plan - Plan This patient is a 72-year-old male with a diagnosis of type 2 diabetes, hypertension, dyslipidemia, gastroesophageal reflux disease, BPH, posttraumatic stress disorder who was admitted with acute worsening of lumbar radiculopathy. As per nursing staff patient suffered a ground-level fall yesterday. CT scan of the head was done which was negative. Patient says he has been having lower back pain and after the fall last night he feels that the pain is worse. Patient advised to ask for assistance when getting up. Back brace not put on yesterday. Will follow up with neurosurgery regarding plan of care for this patient. 1. L5-S1 radiculopathy status post neurosurgical intervention Patient's pain is somewhat better than yesterday. He did fall x 2 two days ago. Patient underwent L3-4 left hemilaminectomy, mesiofacetectomy, foraminotomy, microsurgical resection of the disk yesterday Complains of lower back pain. We will follow-up with recommendations from neurosurgery. Case will be discussed with case management as far as discharge planning. He will benefit from SNF placement after discharge for rehab. Prior to the procedure hip MRI showed mild left hip joint osteoarthritis as well as a small joint effusion. Lumbar spine MRI shows mild disc bulge at L3-L4, worse in the left. Loss of disc space L5-S1. Central disc protrusion at T11-T12. Continue medications for pain management. Patient currently on Percocet, IV morphine for breakthrough pain. 2. Type 2 diabetes Patient on Lantus at bedtime. Continue pre-meal insulin 3 times daily. Low- dose insulin sliding scale. Patient's diabetes medication regimen will be adjusted as needed. Blood sugars running between mid 250s. Will increase Basal insulin dose. I will continue to monitor the blood sugars today and adjust them as needed. 3. Hypertension Continue amlodipine. The patient will also be started on metoprolol today. 4. Dyslipidemia Continue statin. 5. Gastroesophageal reflux disease Continue PPI. 6. BPH Continue prazosin 7. Posttraumatic stress disorder Continue duloxetine. DVT prophylaxis, heparin for DVT prophylaxis.
[2018-06-01] MEDS: Prazosin HCl 1 MG Capsule PO SCH (20:00)
[2018-06-02] MEDS: Sod Chloride 0.9% Inj 1,000 ML IV.CONT SCH ×2 (01:14→11:52)
[2018-06-02] MEDS: Heparin - SQ 10,000 UNITS/ML Vial SQ SCH ×2 (03:55→15:54)
[2018-06-02] MEDS: Insulin NovoLOG Aspart Correctional Sugar Inj SQ SCH ×7 (08:47→21:39)
[2018-06-02] MEDS: Metoprolol Tartrate 25 MG Tablet PO SCH ×2 (08:48→21:13)
[2018-06-02] MEDS: Gabapentin 300 MG Capsule PO SCH ×3 (08:48→17:18)
[2018-06-02] MEDS: Senna/Docusate Sodium 8.6/50 MG Tablet PO SCH ×2 (08:48→21:13)
[2018-06-02] MEDS: amLODIPine 10 MG Tablet PO SCH (08:49)
--- NOTE | 2018-06-02 10:30 | P.PNNS ---
Subjective Interval history: leg pain continues to improve, reports of numbness left lateral hip and thigh Physical Exam Vital signs: Vital Signs 06/01/18 12:00 06/01/18 16:00 06/01/18 19:55 Temperature 98.4 F 98.2 F 97.7 F Pulse Rate 83 92 H 78 Respiratory Rate 18 16 17 Blood Pressure 126/63 129/64 113/59 L Pulse Oximetry 97 96 98 06/01/18 20:00 06/02/18 00:20 06/02/18 03:55 Temperature 97.9 F 97.4 F L Pulse Rate 70 87 Respiratory Rate 17 18 Blood Pressure 135/68 143/73 H Pulse Oximetry 98 97 96 06/02/18 08:00 Temperature 97.8 F Pulse Rate 82 Respiratory Rate 16 Blood Pressure 165/84 H Pulse Oximetry 93 L Intake & Output 06/01/18 06/02/18 06/02/18 18:59 06:59 18:59 Intake Total 1360 / 1360 1020 / 1020 Output Total 1600 / 1600 1000 / 1000 Balance -240 / -240 20 / 20 Weight 87.1 kg Intake: IV 1000 / 1000 NS Inj 1,000 ML @ 100 mls/hr IV 1000 / 1000 .CONT .Q10H [facility] Rx#:[id number] Oral 360 / 360 1020 / 1020 Output: Urine 1600 / 1600 1000 / 1000 Other: # Voids 0 Date of Last Bowel Movement 05/28/18 05/28/18 # Bowel Movements 0 Narrative: Awake, alert appears comfortable in NAD moves lower extremities 5/5 slight giveaway left iliopsoas due to pain wound with Optifoam dressing clean and dry Assessment and Plan - Plan 72 year old male with lumbar radiculopathy, s/p left L3-4 laminectomy, microdiscectomy 05/30/18 s/p fall x 2 on 05/30 radicular pain improving cont supportive care cont physical therapy corset brace when out of bed dw patient again not to get up on his own without assistance clear to dc to rehab from N[facility] standpoint the Optifoam dressing may be removed 06/06/18 and can leave open to air
--- NOTE | 2018-06-02 17:02 | P.PNIM ---
Subjective Interval history: Patient has on and off lower back pain throughout the day. No other complaints. Physical Exam Vital signs: Vital Signs 06/01/18 19:55 06/01/18 20:00 06/02/18 00:20 Temperature 97.7 F 97.9 F Pulse Rate 78 70 Respiratory Rate 17 17 Blood Pressure 113/59 L 135/68 Pulse Oximetry 98 98 97 06/02/18 03:55 06/02/18 08:00 06/02/18 12:00 Temperature 97.4 F L 97.8 F 98.1 F Pulse Rate 87 82 72 Respiratory Rate 18 16 18 Blood Pressure 143/73 H 165/84 H 144/83 H Pulse Oximetry 96 93 L 94 L Intake & Output 06/01/18 06/02/18 06/02/18 18:59 06:59 18:59 Intake Total 1360 / 1360 1020 / 1020 100 / 100 Output Total 1600 / 1600 1000 / 1000 550 / 550 Balance -240 / -240 20 / 20 -450 / -450 Weight 87.1 kg Intake: IV 1000 / 1000 100 / 100 NS Inj 1,000 ML @ 100 mls/hr IV 1000 / 1000 .CONT .Q10H MAURICE Rx#:[id number] Oral 360 / 360 1020 / 1020 Output: Urine 1600 / 1600 1000 / 1000 550 / 550 Other: # Voids 0 1 Date of Last Bowel Movement 05/28/18 05/28/18 06/02/18 # Bowel Movements 0 1 Narrative: General patient says his back pain is better but still present. HEENT atraumatic normocephalic. Cardiovascular S1-S2 audible, RRR, no murmurs rubs or gallops Respiratory clear to auscultation bilaterally Abdomen soft, nontender, nondistended, normal bowel sounds Patient with lower back pain and pain in the left lower ext mostly in left hip. Extremities no edema 2+ distal pulses in bilateral upper and lower extremities Neuro no focal neurological deficits. Results - Labs CBC & Chem 7: 05/26/18 06:20 05/26/18 06:20 Laboratory Results - last 24 hr 06/01/18 06/01/18 06/02/18 17:15 21:08 08:37 POC Glucose 310 H 226 H 256 H 06/02/18 06/02/18 12:28 16:30 POC Glucose 124 H 276 H Assessment and Plan - Plan This patient is a 72-year-old male with a diagnosis of type 2 diabetes, hypertension, dyslipidemia, gastroesophageal reflux disease, BPH, posttraumatic stress disorder who was admitted with acute worsening of lumbar radiculopathy. 1. L5-S1 radiculopathy status post neurosurgical intervention Patient's pain is somewhat better than yesterday. He did fall x 2 a few days ago. Patient underwent L3-4 left hemilaminectomy, mesiofacetectomy, foraminotomy, microsurgical resection of the disk yesterday Complains of lower back pain. Neurosurgery is clearing the patient for discharge to a rehab center. Case will be discussed with case management as far as discharge planning. Patient is awaiting for placement at a snf. Prior to the procedure hip MRI showed mild left hip joint osteoarthritis as well as a small joint effusion. Lumbar spine MRI shows mild disc bulge at L3-L4, worse in the left. Loss of disc space L5-S1. Central disc protrusion at T11-T12. Continue medications for pain management. Patient currently on Percocet, IV morphine for breakthrough pain. 2. Type 2 diabetes Patient on Lantus at bedtime. Continue pre-meal insulin 3 times daily. Low- dose insulin sliding scale. Increased patients basal insulin again today. Continue to follow. 3. Hypertension Continue amlodipine. Metoprolol dose increased. Continue to monitor and adjust as needed. 4. Dyslipidemia Continue statin. 5. Gastroesophageal reflux disease Continue PPI. 6. BPH Continue prazosin 7. Posttraumatic stress disorder Continue duloxetine. DVT prophylaxis, heparin for DVT prophylaxis.
[2018-06-02] MEDS: Prazosin HCl 1 MG Capsule PO SCH (21:37)
[2018-06-02] MEDS: Insulin Detemir Inj 1,000 UNIT/10 ML Vial SQ SCH (21:38)
[2018-06-03] MEDS: Heparin - SQ 10,000 UNITS/ML Vial SQ SCH ×2 (02:39→15:35)
[2018-06-03] MEDS: Sod Chloride 0.9% Inj 1,000 ML IV.CONT SCH ×3 (03:33→17:07)
[2018-06-03 07:34] LABS: Calcium 8.2 mg/dL (8.5-10.1); Carbon Dioxide 30.3 meq/L (21.0-32.0); Magnesium 2.1 mg/dL (1.5-2.5); Potassium 3.9 meq/L (3.5-5.1)
[2018-06-03] MEDS: Metoprolol Tartrate 25 MG Tablet PO SCH ×2 (08:13→20:52)
[2018-06-03] MEDS: Senna/Docusate Sodium 8.6/50 MG Tablet PO SCH ×2 (08:13→20:52)
[2018-06-03] MEDS: Gabapentin 300 MG Capsule PO SCH ×3 (08:13→17:07)
[2018-06-03] MEDS: amLODIPine 10 MG Tablet PO SCH (08:14)
[2018-06-03] MEDS: Insulin NovoLOG Aspart Correctional Sugar Inj SQ SCH ×7 (08:20→20:53)
--- NOTE | 2018-06-03 13:57 | P.PNNS ---
Subjective Interval history: The patient is stable now postoperative day #3 status post left L3-L4 hemilaminotomy with a foraminotomy and microdiscectomy. He is still complaining of severe burning pain in his left lower extremity proximally and radiating down his left lower extremity. He also describes weakness and is having difficulty ambulating he has ambulated with physical therapy in the room. Physical Exam Vital signs: Vital Signs 06/02/18 16:00 06/02/18 20:00 06/03/18 00:30 Temperature 97.2 F L 97.6 F 98.1 F Pulse Rate 106 H 98 H 78 Respiratory Rate 20 18 17 Blood Pressure 133/88 133/81 128/77 Pulse Oximetry 95 95 94 L 06/03/18 04:25 06/03/18 08:00 06/03/18 12:00 Temperature 97.7 F 97.5 F L 97.6 F Pulse Rate 77 86 79 Respiratory Rate 18 16 18 Blood Pressure 128/69 154/87 H 120/76 Pulse Oximetry 94 L 94 L 96 Intake & Output 06/02/18 06/03/18 06/03/18 18:59 06:59 18:59 Intake Total 100 / 100 720 / 720 300 / 300 Output Total 550 / 550 750 / 750 Balance -450 / -450 -30 / -30 300 / 300 Weight 87.1 kg Intake: IV 100 / 100 Oral 720 / 720 300 / 300 Output: Urine 550 / 550 750 / 750 Other: # Voids 1 1 Date of Last Bowel Movement 06/02/18 06/02/18 # Bowel Movements 1 0 - Routine Neurological Exam The patient is awake and alert. He is oriented by 3. Cognitive function is grossly intact. His speech is fluent. Cranial nerve testing 2 through 12 is grossly intact. There are no gross motor or sensory deficits but he has decreased sensation in the left L3 and L4 dermatomal distribution. He also appears to have some weakness proximally in his left lower extremity but this may be due to pain which limits the examination. He is continent of bowel and bladder. The dressing is dry and intact. Assessment and Plan - Plan 72 year old male with lumbar radiculopathy, s/p left L3-4 laminectomy, microdiscectomy 05/30/18 s/p fall x 2 on 05/30 radicular pain improving cont supportive care cont physical therapy corset brace when out of bed dw patient again not to get up on his own without assistance clear to dc to rehab from [facility] standpoint the Optifoam dressing may be removed Tu06/06/18 and can leave open to air June 03, 2018 The patient is stable postoperatively. He is to continue the present management. He was certainly require evaluation for transfer for a course of inpatient rehabilitation. Ambulation is encouraged. Neurosurgery will follow. Simone Strauss MD
--- NOTE | 2018-06-03 17:55 | P.PNIM ---
Subjective Interval history: Patient complains of lower back pain. He says he is a little upset with physical therapy over the past couple of days. No other complaints. Physical Exam Vital signs: Vital Signs 06/02/18 20:00 06/03/18 00:30 06/03/18 04:25 Temperature 97.6 F 98.1 F 97.7 F Pulse Rate 98 H 78 77 Respiratory Rate 18 17 18 Blood Pressure 133/81 128/77 128/69 Pulse Oximetry 95 94 L 94 L 06/03/18 08:00 06/03/18 12:00 06/03/18 16:00 Temperature 97.5 F L 97.6 F 98.2 F Pulse Rate 86 79 81 Respiratory Rate 16 18 18 Blood Pressure 154/87 H 120/76 151/83 H Pulse Oximetry 94 L 96 95 Intake & Output 06/02/18 06/03/18 06/03/18 18:59 06:59 18:59 Intake Total 100 / 100 720 / 720 680 / 680 Output Total 550 / 550 750 / 750 Balance -450 / -450 -30 / -30 680 / 680 Weight 87.1 kg Intake: IV 100 / 100 Oral 720 / 720 680 / 680 Output: Urine 550 / 550 750 / 750 Other: # Voids 1 1 Date of Last Bowel Movement 06/02/18 06/02/18 # Bowel Movements 1 0 Narrative: General patient says his back pain is better but still present. HEENT atraumatic normocephalic. Cardiovascular S1-S2 audible, RRR, no murmurs rubs or gallops Respiratory clear to auscultation bilaterally Abdomen soft, nontender, nondistended, normal bowel sounds Patient with lower back pain and pain in the left lower ext mostly in left hip. Extremities no edema 2+ distal pulses in bilateral upper and lower extremities Neuro no focal neurological deficits. Results - Labs CBC & Chem 7: 05/26/18 06:20 06/03/18 05:49 Laboratory Results - last 24 hr 06/02/18 06/03/18 06/03/18 21:10 05:49 08:19 Sodium 139 Potassium 3.9 Chloride 104 Carbon Dioxide 30.3 Anion Gap 5 BUN 16 Creatinine 0.89 Estimated GFR 84 L POC Glucose 321 H 239 H Random Glucose 212 H Calcium 8.2 L Magnesium 2.1 06/03/18 06/03/18 12:29 16:58 Sodium Potassium Chloride Carbon Dioxide Anion Gap BUN Creatinine Estimated GFR POC Glucose 226 H 130 H Random Glucose Calcium Magnesium Assessment and Plan - Plan This patient is a 72-year-old male with a diagnosis of type 2 diabetes, hypertension, dyslipidemia, gastroesophageal reflux disease, BPH, posttraumatic stress disorder who was admitted with acute worsening of lumbar radiculopathy. 1. L5-S1 radiculopathy status post neurosurgical intervention 06/03 Patient's pain is somewhat better than yesterday. He did fall x 2 a few days ago. Patient underwent L3-4 left hemilaminectomy, mesiofacetectomy, foraminotomy, microsurgical resection of the disk yesterday Complains of lower back pain. Neurosurgery is clearing the patient for discharge to a rehab center. I discussed the case with the patient's nurse today at bedside. I will follow up with Case management tomorrow when a SNF is ready to accept the patient. Prior to the procedure hip MRI showed mild left hip joint osteoarthritis as well as a small joint effusion. Lumbar spine MRI shows mild disc bulge at L3-L4, worse in the left. Loss of disc space L5-S1. Central disc protrusion at T11-T12. Continue medications for pain management. Patient currently on Percocet, IV morphine for breakthrough pain. 2. Type 2 diabetes Patient on Lantus at bedtime. Continue pre-meal insulin 3 times daily. Low- dose insulin sliding scale. Continue to follow. 3. Hypertension Continue amlodipine. Metoprolol dose increased. Continue to monitor and adjust as needed. 4. Dyslipidemia Continue statin. 5. Gastroesophageal reflux disease Continue PPI. 6. BPH Continue prazosin 7. Posttraumatic stress disorder Continue duloxetine. DVT prophylaxis, heparin for DVT prophylaxis.
[2018-06-03] MEDS: Prazosin HCl 1 MG Capsule PO SCH (20:52)
[2018-06-03] MEDS: Insulin Detemir Inj 1,000 UNIT/10 ML Vial SQ SCH (20:53)
[2018-06-04] MEDS: Heparin - SQ 10,000 UNITS/ML Vial SQ SCH ×2 (02:30→15:00)
[2018-06-04] MEDS: Sod Chloride 0.9% Inj 1,000 ML IV.CONT SCH ×3 (03:14→22:47)
[2018-06-04] MEDS: Insulin NovoLOG Aspart Correctional Sugar Inj SQ SCH ×7 (08:00→21:23)
[2018-06-04] MEDS: amLODIPine 10 MG Tablet PO SCH (08:01)
[2018-06-04] MEDS: Gabapentin 300 MG Capsule PO SCH ×3 (08:01→17:33)
[2018-06-04] MEDS: Metoprolol Tartrate 25 MG Tablet PO SCH ×2 (08:01→21:10)
[2018-06-04] MEDS: Senna/Docusate Sodium 8.6/50 MG Tablet PO SCH ×2 (08:01→21:10)
--- NOTE | 2018-06-04 13:31 | P.PNIM ---
Subjective Interval history: Patient laying in bed. Says he is looking forward to rehab. Physical Exam Vital signs: Vital Signs 06/03/18 16:00 06/03/18 19:53 06/03/18 23:47 Temperature 98.2 F 97.6 F 97.7 F Pulse Rate 81 78 83 Respiratory Rate 18 19 18 Blood Pressure 151/83 H 125/71 148/82 H Pulse Oximetry 95 96 94 L 06/04/18 08:00 06/04/18 12:00 Temperature 98.0 F 97.2 F L Pulse Rate 79 71 Respiratory Rate 18 Blood Pressure 133/78 129/73 Pulse Oximetry 98 97 Intake & Output 06/03/18 06/04/18 06/04/18 18:59 06:59 18:59 Intake Total 1880 / 1880 1320 / 1320 Output Total 1500 / 1500 925 / 925 Balance 380 / 380 395 / 395 Weight 80.7 kg Intake: Oral 1880 / 1880 1320 / 1320 Output: Urine 1500 / 1500 925 / 925 Other: # Voids 1 Date of Last Bowel Movement 06/02/18 06/02/18 # Bowel Movements 0 Narrative: General patient says his back pain is better. Throughout the day still has on and off back pain. HEENT atraumatic normocephalic. Cardiovascular S1-S2 audible, RRR, no murmurs rubs or gallops Respiratory clear to auscultation bilaterally Abdomen soft, nontender, nondistended, normal bowel sounds Patient with lower back pain and pain in the left lower ext mostly in left hip. Extremities no edema 2+ distal pulses in bilateral upper and lower extremities Neuro no focal neurological deficits. Results - Labs CBC & Chem 7: 05/26/18 06:20 06/03/18 05:49 Laboratory Results - last 24 hr 06/03/18 06/03/18 06/04/18 16:58 20:34 07:58 POC Glucose 130 H 265 H 212 H 06/04/18 12:02 POC Glucose 250 H Assessment and Plan - Plan This patient is a 72-year-old male with a diagnosis of type 2 diabetes, hypertension, dyslipidemia, gastroesophageal reflux disease, BPH, posttraumatic stress disorder who was admitted with acute worsening of lumbar radiculopathy. 1. L5-S1 radiculopathy status post neurosurgical intervention 12/16 Patient's still has lower back pain. Improving. Patient underwent L3-4 left hemilaminectomy, mesiofacetectomy, foraminotomy, microsurgical resection of the disk yesterday Neurosurgery is clearing the patient for discharge to a rehab center. I discussed the case with the patient's nurse today at bedside. Discussed with case management today and they are attempting to transfer patient to [facility] and looking at SNFs. Medically patient is cleared for discharge to rehab. Prior to the procedure hip MRI showed mild left hip joint osteoarthritis as well as a small joint effusion. Lumbar spine MRI shows mild disc bulge at L3-L4, worse in the left. Loss of disc space L5-S1. Central disc protrusion at T11-T12. Continue medications for pain management. Patient currently on Percocet, IV morphine for breakthrough pain. 2. Type 2 diabetes Patient on Lantus at bedtime, Dose increased today. Continue pre-meal insulin 3 times daily. Low-dose insulin sliding scale. Continue to follow. 3. Hypertension Continue amlodipine, metoprolol. Systolic bp currently 120s. Continue to monitor and adjust as needed. 4. Dyslipidemia Continue statin. 5. Gastroesophageal reflux disease Continue PPI. 6. BPH Continue prazosin 7. Posttraumatic stress disorder Continue duloxetine. DVT prophylaxis, heparin for DVT prophylaxis.
--- NOTE | 2018-06-04 13:32 | P.PNNS ---
Subjective Interval history: The patient has remained stable overnight. He still complains of low back pain with pain rating to his left hip and left lower extremity. He also describes persistent weakness and numbness proximally in his left lower extremity. He still having difficulty ambulating. Physical Exam Vital signs: Vital Signs 06/03/18 16:00 06/03/18 19:53 06/03/18 23:47 Temperature 98.2 F 97.6 F 97.7 F Pulse Rate 81 78 83 Respiratory Rate 18 Blood Pressure 151/83 H 125/71 148/82 H Pulse Oximetry 95 96 94 L 06/04/18 08:00 06/04/18 12:00 Temperature 98.0 F 97.2 F L Pulse Rate 79 71 Respiratory Rate 18 Blood Pressure 133/78 129/73 Pulse Oximetry 98 97 Intake & Output 06/03/18 06/04/18 06/04/18 18:59 06:59 18:59 Intake Total 1880 / 1880 1320 / 1320 Output Total 1500 / 1500 925 / 925 Balance 380 / 380 395 / 395 Weight 80.7 kg Intake: Oral 1880 / 1880 1320 / 1320 Output: Urine 1500 / 1500 925 / 925 Other: # Voids 1 Date of Last Bowel Movement 06/02/18 06/02/18 # Bowel Movements 0 - Routine Neurological Exam The patient is sitting in bed as I enter the room. He appears to be in some discomfort. His significant other caregiver sits next to him. Mental status testing finds him to be awake and alert. He is oriented by 3. Cognitive function is grossly intact. His speech is fluent. Cranial nerve testing 2 through 12 is grossly intact. There appears to be some weakness proximally to his left lower extremity but this may be due to effort and pain on examination. He describes some decreased sensation in his left lower extremity. He ambulates with a walker and he is continent of bowel and bladder. The wound appears clear. Assessment and Plan - Plan 72 year old male with lumbar radiculopathy, s/p left L3-4 laminectomy, microdiscectomy 05/30/18 s/p fall x 2 on 05/30 radicular pain improving cont supportive care cont physical therapy corset brace when out of bed dw patient again not to get up on his own without assistance clear to dc to rehab from [facility] standpoint the Optifoam dressing may be removed 06/06/18 and can leave open to air June 03, 2018 The patient is stable postoperatively. He is to continue the present management. He was certainly require evaluation for transfer for a course of inpatient rehabilitation. Ambulation is encouraged. Neurosurgery will follow. Simone Strauss MD June 04, 2018 The patient remained stable postoperatively. I would continue the present management. Both he and his caregiver have many questions regarding prognosis and course of treatment and I deferred these questions to be answered by Dr. Curiel is attending neurosurgeon. Apparently, he is awaiting transfer for inpatient rehabilitation. Neurosurgery will follow. Simone Strauss MD
[2018-06-04] MEDS: Prazosin HCl 1 MG Capsule PO SCH (21:10)
[2018-06-04] MEDS: Insulin Detemir Inj 1,000 UNIT/10 ML Vial SQ SCH (21:22)
[2018-06-05] MEDS: Heparin - SQ 10,000 UNITS/ML Vial SQ SCH ×3 (03:31→15:07)
[2018-06-05] MEDS: amLODIPine 10 MG Tablet PO SCH ×2 (07:31→08:25)
[2018-06-05] MEDS: Gabapentin 300 MG Capsule PO SCH ×6 (07:31→17:03)
[2018-06-05] MEDS: Senna/Docusate Sodium 8.6/50 MG Tablet PO SCH ×3 (07:31→20:25)
[2018-06-05] MEDS: Metoprolol Tartrate 25 MG Tablet PO SCH ×3 (07:32→20:25)
[2018-06-05] MEDS: Insulin NovoLOG Aspart Correctional Sugar Inj SQ SCH ×7 (07:46→20:29)
[2018-06-05] MEDS: Sod Chloride 0.9% Inj 1,000 ML IV.CONT SCH ×2 (08:25→19:10)
--- NOTE | 2018-06-05 14:14 | P.DS ---
Date of admission: 05/30/18 11:24 Primary care physician: Ngozi Yoo MD Brief History from admission: This patient is a 72-year-old male with a diagnosis of type 2 diabetes, hypertension, dyslipidemia, gastroesophageal reflux disease, BPH, posttraumatic stress disorder who was admitted with acute worsening of lumbar radiculopathy. DS: Medications - Discharge Medications Prescriptions: hydrocodone-acetaminophen 1 tab PO Q4H PRN #18 tab PRN Reason: Pain (Scale Score 7-10) DS: Summary Hospital Course: This patient is a 72-year-old male with a diagnosis of post traumatic stress disorder, diabetes, hypertension, dyslipidemia, gastro esophageal reflux disease , BPH, erectile dysfunction, opioid-induced constipation, chronic back pain, neuropathy. The patient has been having back pain that has been a chronic issue and he presented to the emergency department with complaints of lower back pain that was worsening. He was having back pain with radiation to both of his glutes and left lower extremity. 1. Lumbar radiculopathy status post L3-L4 laminectomy, microdiscectomy on 05/30 The patient underwent evaluation by neurosurgery who recommended neurosurgical intervention. The patient underwent laminectomy, microdiscectomy as mentioned above. Patient tolerated the procedure well, after the procedure the patient did suffer 2 ground level falls in his bedroom when he attempted to get up on his own without assistance. Repeat imaging did not show any significant normality's. Recommendations from neurosurgery are to continue physical therapy at [facility]. He has been cleared by neurosurgery. Patient was advised not to get up without assistance he is to use his corset brace when out of bed. He can continue pain meds, he is currently on and [place], IV morphine for breakthrough pain. 2. Insulin dependent diabetes Continue detemir 36 units subcu nightly which she is receiving in house. Continue aspart 15 units subcu 3 times daily and low-dose insulin sliding scale. Matilde monitor blood sugars, this regimen can be adjusted as needed. 3. Hypertension Continue lisinopril 10 mg p.o. daily, continue metoprolol 25 mill grams p.o. twice daily. Continue to monitor blood pressures and adjust his meds as needed. 4. Dyslipidemia Continue statin. Heparin for DVT prophylaxis. - Time Spent with Patient Total time spent providing and/or coordinating discharge services: Greater than 30 minutes - Quality: VTE Deep Vein Thrombosis/Pulmonary Embolism Present on Admission: No Exam Vital signs: Vital Signs 06/04/18 16:00 06/04/18 20:10 06/05/18 00:17 Temperature 97.7 F 97.8 F 97.6 F Pulse Rate 84 92 H 71 Respiratory Rate 18 18 16 Blood Pressure 131/72 146/65 H 123/65 Pulse Oximetry 95 95 96 06/05/18 07:48 06/05/18 13:15 Temperature 97.8 F 97.9 F Pulse Rate 88 82 Respiratory Rate 19 18 Blood Pressure 122/81 120/63 Pulse Oximetry 95 94 L Intake & Output 06/04/18 06/05/18 06/05/18 18:59 06:59 18:59 Intake Total 1100 / 1100 1080 / 1080 Output Total 800 / 800 1325 / 1325 Balance 300 / 300 -245 / -245 Weight 81.1 kg Intake: Oral 1100 / 1100 1080 / 1080 Output: Urine 800 / 800 1325 / 1325 Other: Date of Last Bowel Movement 06/02/18 06/04/18 06/04/18 Narrative: General patient says his back pain is better. Throughout the day still has on and off back pain. HEENT atraumatic normocephalic. Cardiovascular S1-S2 audible, RRR, no murmurs rubs or gallops Respiratory clear to auscultation bilaterally Abdomen soft, nontender, nondistended, normal bowel sounds Patient with lower back pain and pain in the left lower ext mostly in left hip. Extremities no edema 2+ distal pulses in bilateral upper and lower extremities Neuro no focal neurological deficits. Results Procedures completed during hospitalization: Lumbar L3-4 laminectomy, microdiscectomy on 05/30/2018 Labs on day of discharge: Labs from last 24 hours 06/05/18 06/05/18 06/04/18 11:49 07:35 21:09 POC Glucose 267 H 203 H 290 H 06/04/18 17:07 POC Glucose 342 H - Impressions ITS Impressions Lumbar Spine CT 05/25/18 08:24 CONCLUSION: 1. Severe degenerative disc disease at L5-S1 with a small left paracentral disc protrusion and containing gas. This finding is new and abuts the left S1 nerve root. There is no spinal canal stenosis at this level but there is moderate bilateral neural foraminal narrowing. 2. All of the remaining levels demonstrate stable changes, as above, without spinal canal stenosis. 3. Severe atherosclerotic disease. Hip MRI 05/27/18 00:00 CONCLUSION: 1. No abnormality is identified to explain the clinical symptoms. 2. Mild left hip joint osteoarthritis with small joint effusion. Lumbar Spine MRI 05/27/18 00:00 CONCLUSION: 1. Mild disc bulge at the L3-L4 level being asymmetric and worse on the left causing narrowing of the left neural foramina. 2. Loss of disc space height at the L5-S1 level. There is mild facet hypertrophy. There is mild narrowing of the neural foramina at this level. 3. Mild central disc protrusion or bulge at the T11-T12 level seen on the sagittal images. There continues to be CSF around the cord. Hip X-Ray 05/30/18 00:00 CONCLUSION: 1. No evidence fracture. 2. Mild osteoarthritic findings left hip. Lumbar Spine X-Ray 05/30/18 00:00 CONCLUSION: Limited localization study as described. Head CT 05/31/18 00:00 CONCLUSION: No acute intracranial findings. . Discharge Plan - Discharge Disposition Patient Disposition: [facility] Inpatient - Discharge Condition Condition: Stable - Discharge Order Discharge Orders: Discharge Order (Routine); Ordered 06/05/18 Ordered By: Dania Mina - Physicians Team Primary Care Provider: Ngozi Yoo Attending Provider: Dania Mina Other Providers: Avery Curiel MD
[2018-06-05] MEDS: Prazosin HCl 1 MG Capsule PO SCH (20:25)
[2018-06-05] MEDS: Insulin Detemir Inj 1,000 UNIT/10 ML Vial SQ SCH (20:29)
[2018-06-06] MEDS: Heparin - SQ 10,000 UNITS/ML Vial SQ SCH (03:39)
[2018-06-06] MEDS: Sod Chloride 0.9% Inj 1,000 ML IV.CONT SCH (04:26)
[2018-06-06] MEDS: Metoprolol Tartrate 25 MG Tablet PO SCH ×2 (07:57→09:17)
[2018-06-06] MEDS: Senna/Docusate Sodium 8.6/50 MG Tablet PO SCH ×2 (07:57→09:18)
[2018-06-06] MEDS: Gabapentin 300 MG Capsule PO SCH ×3 (07:58→12:45)
[2018-06-06] MEDS: Insulin NovoLOG Aspart Correctional Sugar Inj SQ SCH ×4 (07:58→11:50)
[2018-06-06] MEDS: amLODIPine 10 MG Tablet PO SCH (07:59)
--- NOTE | 2018-06-06 12:49 | P.PNIM ---
Subjective Interval history: Patient is seen lying in bed. is at bedside. Patient says he is slightly nauseated but it is improving. He attributes this to gabapentin which has given him problems in the past. Agrees to stop medication. Denies any fever or chills, chest pain or shortness of breath, nausea diarrhea or vomiting. He does still have some knee pain however this is unchanged since his fall. Voices no other concerns and is looking forward to going to rehab. Physical Exam Vital signs: Last Vital Signs Temp 97.6 F 06/06/18 07:50 Pulse 82 06/06/18 07:50 Resp 19 06/06/18 07:50 BP 148/77 H 06/06/18 07:50 Pulse Ox 96 06/06/18 07:50 Intake & Output 06/04/18 06/05/18 06/06/18 06/07/18 06:59 06:59 06:59 06:59 Intake Total 3200 / 3200 2180 / 2180 480 / 480 Output Total 2425 / 2425 2125 / 2125 1450 / 1450 750 / 750 Balance 775 / 775 55 / 55 -970 / -970 -750 / -750 Weight 80.7 kg 81.1 kg 81.2 kg Narrative: GENERAL: Well-nourished, well-developed adult male in no obvious distress. SKIN: Warm and dry. HEAD: Atraumatic. Normocephalic. CARDIOVASCULAR: Regular rate and rhythm. RESPIRATORY: No accessory muscle use. Clear to auscultation. Breath sounds equal bilaterally. GASTROINTESTINAL: Abdomen soft, non-tender, non-distended. Positive bowel sounds. MUSCULOSKELETAL: Extremities without clubbing, cyanosis, or edema. No obvious deformities. Mild generalized tenderness with left knee palpation. NEUROLOGICAL: Awake and alert. No obvious cranial nerve deficits. Motor grossly within normal limits. Normal speech. PSYCHIATRIC: Appropriate mood and affect; insight and judgment good. Results Labs CBC & Chem 7: 05/26/18 06:20 06/03/18 05:49 Procedures Procedures: Lumbar L3-4 laminectomy, microdiscectomy on 05/30/2018 Assessment and Plan Plan Patient being discharged to rehabilitation today. Please see visit summary for assessment/plan and hospital course. Progress Note: Quality VTE Deep Vein Thrombosis/Pulmonary Embolism Present on Admission: No
== END 2018-06-06 13:08 ==
LOC: NEPB 05:32 → INTOOBSV 10:24 → NEDA 10:24 → N04 15:01 → N06 05-31 18:28
PROVIDERS: ADMIT Hospitalist; ATTEND Hospitalist

== ENCOUNTER 2018-06-16 21:01 | Inpatient (IN) ==
[2018-06-16] MEDS ORDERED: HYDROmorphone PF Inj 2 MG/ML Vial IV.PUSH ONE ×2 (21:53→23:32)
--- NOTE | 2018-06-16 22:13 | ED ---
HPI General Chief Complaint: Back Pain/Injury Stated Complaint: ED to Ed transfer/evac Time Seen by Provider: 06/16/18 21:38 History of Present Illness HPI Narrative: 72-year-old male presents emergency department with back pain. He is a transfer from [facility] where he was seen earlier for unrelenting back pain. He had surgery with Dr. Curiel in early May and apparently had 2 falls in the hospital during his stay. He states his pain is unmanageable prompting his visit to [facility] today. He was transferred for pain management and reevaluation by neurosurgery. Related Data Home Medications Medication Instructions Recorded Confirmed Lantus U-100 Insulin 25 units SUB-Q HS 01/28/18 06/16/18 amlodipine 10 mg PO DAILY 01/28/18 06/16/18 aspirin [Aspir-81] 81 mg PO DAILY 01/28/18 06/16/18 duloxetine 60 mg PO DAILY 01/28/18 06/16/18 empagliflozin 25 mg PO DAILY 01/28/18 06/16/18 melatonin 6 mg PO HS 01/28/18 06/16/18 omeprazole 40 mg PO BID 01/28/18 06/16/18 prazosin 3 mg PO HS 01/28/18 06/16/18 rosuvastatin 40 mg PO DAILY 01/28/18 06/16/18 chlorthalidone 12.5 mg PO DAILY 04/29/18 06/16/18 turmeric 1 tab PO DAILY 04/29/18 06/16/18 insulin aspart U-100 [Novolog 10 unit SUBCUT AC LUNCH 05/25/18 06/16/18 U-100 Insulin aspart] oxycodone-acetaminophen 1 tab PO Q4-6H PRN 06/16/18 06/16/18 Previous Rx's Medication Instructions Recorded magnesium citrate 150 ml PO DAILY PRN #296 ml 01/29/18 Allergies Allergy/AdvReac Type Severity Reaction Status Date / Time lisinopril Allergy Severe Edema Verified 05/25/18 05:39 Review of Systems ROS: all other systems reviewed are negative PMFSH Family History Family History Other Family history unknown Social History Social History Substance History: No History of Abuse Second Hand Smoke Exposure: No Smoking Status: Never smoker Tobacco Type: Cigarettes How Often Do You Have a Drink Containing Alcohol: Never Recent Travel in [facility] within the Last 8 Weeks: No Recent Out of Country Travel within the Last 8 Weeks: No Immunization History Tetanus Immunization: <5 Years Exam Narrative Exam Narrative: GENERAL: 72-year-old male in moderate distress secondary to pain SKIN: Focused skin assessment warm/dry. HEAD: Atraumatic. Normocephalic. EYES: Pupils equal and round. No scleral icterus. No injection or drainage. ENT: No nasal bleeding or discharge. Mucous membranes pink and moist. NECK: Trachea midline. No JVD. CARDIOVASCULAR: Regular rate and rhythm. No murmur appreciated. RESPIRATORY: No accessory muscle use. Clear to auscultation. Breath sounds equal bilaterally. GASTROINTESTINAL: Abdomen soft, non-tender, nondistended. Hepatic and splenic margins not palpable. MUSCULOSKELETAL: No obvious deformities. No clubbing. No cyanosis. No edema. NEUROLOGICAL: Awake and alert. No obvious cranial nerve deficits. Motor grossly within normal limits. Normal speech. PSYCHIATRIC: Appropriate mood and affect; insight and judgment normal. Course Initial Documented Vital Signs Temperature 98 F 06/16/18 21:28 Pulse Rate 107 H 06/16/18 21:28 Respiratory Rate 18 06/16/18 21:28 Blood Pressure 145/73 H 06/16/18 21:28 Pulse Oximetry 97 06/16/18 21:28 Last Documented Vital Signs Temperature 98 F 06/16/18 21:28 Pulse Rate 97 H 06/16/18 23:43 Respiratory Rate 17 06/17/18 00:51 Blood Pressure 145/67 H 06/16/18 23:43 Pulse Oximetry 97 06/16/18 23:43 Medical Decision Making MDM Narrative Medical decision making narrative: Patient was seen and evaluated in the emergency department. He was given 1 mg of Dilaudid for pain management. Call was placed to Dr. Curiel and I did speak to the neurosurgeon collection systems worker who asked that the patient be admitted for pain control. Hospitalist was contacted and will admit the patient. Medical Screen Exam Complete: Yes Emergency Medical Condition: Yes Discharge Plan Discharge Disposition Patient Disposition: ED Admit(ED Internal Use Only) Discharge Condition Condition: Stable Discharge Order Discharge Orders: ED Use Only Admit Order (Routine); Ordered 06/17/18 Ordered By: Jacky Hwang Discharge Details Diagnosis: Acute back pain Physicians Team ED Provider: Jacky Hwang Primary Care Provider: Ngozi Yoo Attending Provider: Savana Infante Other Providers: Ok Martinez ED Status: Admitted Patient
[2018-06-17] MEDS ORDERED: Dextrose 50% in Water 50 ML Vial IV.PUSH PRN (00:20)
[2018-06-17] MEDS ORDERED: Bisacodyl 10 MG Supp RECTAL PRN (00:22)
[2018-06-17] MEDS ORDERED: Sod Chloride 0.9% Inj 1,000 ML IV.CONT SCH (00:30)
--- NOTE | 2018-06-17 00:35 | P.HP ---
History of Present Illness Service: [facility] Primary Care Physician: Ngozi Yoo MD History of Present Illness: 72-year-old male with a past medical history significant for recent laminectomy on 05/[address] Curiel, insulin-dependent diabetes mellitus, hypertension, hyperlipidemia presents to the emergency department as a transfer from [facility] for the evaluation of multiple falls and hypotension. The patient reports he has had pain since postop day 1 when he suffered a fall in the hospital immediately following his surgery. He had an L3-L4 laminectomy and microdiscectomy on 05/30/18. He was working with his physical therapist today when he became lightheaded. His physical therapist took his blood pressure and found to be 60/44. The patient reports his blood pressure dropped secondary to his acute pain. He states he has pain in his left hip that radiates to the groin and down the back of the leg. He states it is so painful that he is unable to weight-bear. He currently walks with a walker. He denies any chest pain or shortness of breath. No abdominal pain. No nausea/vomiting/diarrhea. No fever/chills. Review of Systems All other systems reviewed negative except as stated in HPI PMFSH - History History Provided By: Patient - Medical History Medical History: Medical History (Last Reviewed 06/17/18 @ 00:28 by Savana Infante MD) Depression Diabetes FH: cholecystectomy GERD (gastroesophageal reflux disease) HTN (hypertension) PTSD (post-traumatic stress disorder) - Surgical History Surgical History: Surgical History (Last Reviewed 06/17/18 @ 00:28 by Savana Infante MD) H/O neck surgery History of appendectomy History of cardiac cath History of colon surgery S/P CABG x 5 - Family History Family History: Family History (Last Updated 06/17/18 @ 00:28 by Savana Infante MD) Other Family history unknown - Tobacco History Second Hand Smoke Exposure: No Smoking Status: Never smoker Tobacco Type: Cigarettes - Alcohol History How Often Do You Have a Drink Containing Alcohol: Never - Substance Use History Substance History: No History of Abuse - Travel History Recent Travel in the [place] Within the Last 8 Weeks: No Recent Travel Out of the Country Within the Last 8 Weeks: No - Immunization History Tetanus Immunization: <5 Years Medications and Allergies Allergies Allergy/AdvReac Type Severity Reaction Status Date / Time lisinopril Allergy Severe Edema Verified 12/06/18 05:39 Home Medications Medication Instructions Recorded Confirmed Type Lantus U-100 Insulin 25 units SUB-Q HS 01/28/18 06/16/18 History amlodipine 10 mg PO DAILY 01/28/18 06/16/18 History aspirin [Aspir-81] 81 mg PO DAILY 01/28/18 06/16/18 History duloxetine 60 mg PO DAILY 01/28/18 06/16/18 History empagliflozin 25 mg PO DAILY 01/28/18 06/16/18 History melatonin 6 mg PO HS 01/28/18 06/16/18 History omeprazole 40 mg PO BID 01/28/18 06/16/18 History prazosin 3 mg PO HS 01/28/18 06/16/18 History rosuvastatin 40 mg PO DAILY 01/28/18 06/16/18 History chlorthalidone 12.5 mg PO DAILY 04/29/18 06/16/18 History turmeric 1 tab PO DAILY 04/29/18 06/16/18 History insulin aspart U-100 [Novolog 10 unit SUBCUT AC LUNCH 05/25/18 06/16/18 History U-100 Insulin aspart] oxycodone-acetaminophen 1 tab PO Q4-6H PRN 06/16/18 06/16/18 History Exam Vital signs: Vital Signs 06/16/18 21:28 06/16/18 23:29 06/16/18 23:43 Temperature 98 F Pulse Rate 107 H 97 H Respiratory Rate 18 17 17 Blood Pressure 145/73 H 145/67 H Pulse Oximetry 97 97 Intake & Output 06/16/18 06/16/18 06/17/18 06:59 18:59 06:59 Weight 85.275 kg Narrative: Gen.: No acute distress Head: Normocephalic. Atraumatic. EENT: Pupils equal round and reactive to light. Nose without drainage. Airway intact. Throat without injection. Cardiovascular: Regular rate and rhythm. No murmurs, rubs or gallops. Respiratory: Lungs clear to auscultation bilaterally. No wheezes or rhonchi. Abdomen: Soft, nontender, nondistended. No peritoneal signs. Musculoskeletal: No gross deformities. No edema. Left lower extremity range of motion limited secondary to pain. Skin: No obvious rashes or erythema. Neuro: Sensory and motor grossly intact. Cranial nerves II through XII grossly intact. Caprini VTE Risk Assessment Caprini VTE Risk Assessment: Moderate/High Risk (score >= 2) Caprini Risk Assessment Model: Point Value = 1 Point Value = 2 Point Value = 3 Point Value = 5 Age 41-60 Minor surgery BMI > 25 kg/m2 Swollen legs Varicose veins or History of unexplained or recurrent spontaneous Oral contraceptives or hormone replacement Sepsis (< 1 month) Serious lung disease, including pneumonia (< 1 month) Abnormal pulmonary function Acute myocardial infarction Congestive heart failure (< 1 month) History of inflammatory bowel disease Medical patient at bed rest Age 61-74 Arthroscopic surgery Major open surgery (> 45 min) Laparoscopic surgery (> 45 min) Malignancy Confined to bed (> 72 hours) Immobilizing plaster cast Central venous access Age >= 75 History of VTE Family history of VTE Factor V Leiden Prothrombin [id number] Lupus anticoagulant Anticardiolipin antibodies Elevated serum homocysteine Heparin-induced thrombocytopenia Other congenital or acquired thrombophilia Stroke (< 1 month) Elective arthroplasty Hip, pelvis, or leg fracture Acute spinal cord injury (< 1 month) Prophylaxis Regimen: Total Risk Factor Score Risk Level Prophylaxis Regimen 0-1 Low Early ambulation 2 Moderate Order ONE of the following: *Sequential Compression Device (SCD) *Heparin 5000 units SQ BID 3-4 Higher Order ONE of the following medications: *Heparin 5000 units SQ TID *Enoxaparin/Lovenox 40 mg SQ daily (WT < 150 kg, CrCl > 30 mL/min) *Enoxaparin/Lovenox 30 mg SQ daily (WT < 150 kg, CrCl > 10-29 mL/min) *Enoxaparin/Lovenox 30 mg SQ BID (WT < 150 kg, CrCl > 30 mL/min) AND/OR *Sequential Compression Device (SCD) 5 or more Highest Order ONE of the following medications: *Heparin 5000 units SQ TID (Preferred with Epidurals) *Enoxaparin/Lovenox 40 mg SQ daily (WT < 150 kg, CrCl > 30 mL/min) *Enoxaparin/Lovenox 30 mg SQ daily (WT < 150 kg, CrCl > 10-29 mL/min) *Enoxaparin/Lovenox 30 mg SQ BID (WT < 150 kg, CrCl > 30 mL/min) AND *Sequential Compression Device (SCD) Assessment and Plan - Plan Assessment/plan: 1. Left lower extremity pain, status post laminectomy Neurosurgery consulted, appreciate assistance Physical therapy/Occupational Therapy Dilaudid for pain 2. Hypotension Likely vagal response secondary to pain Orthostatic vital signs 3. Diabetes mellitus Holding home Lantus as patient n.p.o. Running scale insulin Monitor blood glucose 4. Hypertension/hyperlipidemia Continue home medications FEN N.p.o. until cleared by neurosurgery Electrolytes: Status post p.o. repletion of potassium, monitor BMP Holding pharmacologic anticoagulation until cleared by neurosurgery NS 100 cc/hour
[2018-06-17] MEDS: Insulin NovoLOG Aspart Correctional Sugar Inj SQ SCH ×5 (02:50→23:04)
[2018-06-17] MEDS: HYDROmorphone PF Inj 2 MG/ML Vial IV.PUSH PRN ×3 (03:21→12:59)
[2018-06-17] MEDS: amLODIPine 10 MG Tablet PO SCH (09:00)
[2018-06-17] MEDS: CHLORTHALIDONE 12.5 MG PO SCH (09:00)
[2018-06-17] MEDS: JARDIANCE 25 MG PO SCH (09:00)
[2018-06-17] MEDS: Senna/Docusate Sodium 8.6/50 MG Tablet PO SCH ×2 (09:00→21:44)
[2018-06-17] MEDS: Duloxetine 60 MG DR Capsule PO SCH (09:00)
--- NOTE | 2018-06-17 13:04 | MB ---
cc: Simone Strauss MD DATE: 06/17/2018 TIME OF CONSULT: 11 a.m. This is a report of an inpatient neurosurgical consultation. The patient was interviewed, examined, the documentation, laboratory evaluation, and imaging were reviewed. CHIEF COMPLAINT: Intractable low back pain, left hip pain and left lower extremity pain. HISTORY OF PRESENT ILLNESS: This is a 72-year-old white male who is well known to me from his previous admission here at [facility], who underwent left L3-L4 hemilaminectomy with microdiscectomy performed by Dr. Avery Curiel on 05/30/2018. In any case, he has suffered with persistent intractable low back pain with radiation to his left hip and groin and left upper and left lower extremity. This is associated with some numbness. In any case, this has been present both preoperatively and postoperatively. Apparently, he sought medical attention in the emergency department at [facility] yesterday and was evaluated there. He was found to be hypotensive. The etiology of this was unclear. In any case, he was given fluids and resuscitated. Laboratory evaluation essentially was stable, except for mild hypokalemia. He also underwent an MRI scan of the lumbosacral spine without contrast, which was degraded by motion artifact. I personally reviewed the imaging and this reveals spondylitic changes with multilevel lumbar stenosis and lateral recess stenosis and postoperative changes at L3-L4 on the left. There is no sign of fluid collection. Again, the imaging is quite degraded due to motion artifact. In any case, the patient was transferred here to [facility] for further evaluation and treatment. LABORATORY EVALUATION: As stated at [facility], revealed a normal white blood cell count. He has been mildly hyperglycemic, but does have a history of insulin-dependent diabetes mellitus. PAST MEDICAL HISTORY: Remarkable for depression and posttraumatic stress disorder, insulin-dependent diabetes, gastroesophageal reflux disease, hypertension. PAST SURGICAL HISTORY: Remarkable for an appendectomy, cardiac catheterization, colon surgery, coronary artery bypass graft surgery, as well as cervical spine surgery. He also had the lumbar hemilaminotomy and microdiscectomy as described above earlier this month. MEDICATIONS: Include: 1. Lantus insulin. 2. Amlodipine. 3. Aspirin. 4. Duloxetine. 5. Empagliflozin. 6. Melatonin. 7. Omeprazole. 8. Prazosin. 9. Rosuvastatin. 10. Chlorthalidone. 11. Turmeric. 12. NovoLog insulin. 13. Oxycodone. ALLERGIES: LISINOPRIL. SOCIAL HISTORY: He denies a history of cigarette smoking, ethanol abuse or illicit drug use. He is retired. FAMILY HISTORY: Unknown. REVIEW OF SYSTEMS: The patient denies any fever, chills or night sweats. He denies any weight change. He denies any headaches or change in his vision or hearing or thinking or memory or speech or swallowing or chest pain or shortness of breath or abdominal pain or change in bowel or bladder function or characteristics of his urine or stool. He denies any rashes, itching, or easy bruising. He admits to gait disturbance and ambulates with a walker due to problems with his low back and left lower extremity. He does have a history also of anxiety and depression. PHYSICAL EXAMINATION: VITAL SIGNS: Finds his temperature to be 98, his heart rate is 97, his blood pressure is 145/67, his respiratory rate is 17 and his SpO2 is 97% on room air. MENTAL STATUS: Testing finds him to be awake and alert. He is oriented x3. Cognitive function is grossly intact. His speech is fluent. Cranial nerve testing 2-12 is grossly intact. Funduscopic examination was deferred. Visual eldridge are full to confrontation. Extraocular movements are full, without diplopia nor nystagmus. Motor examination found bulk and tone to be within normal limits. Power testing was 5+/5+ throughout with some subtle weakness of the hip flexors on the left. Sensory examination was intact to light touch and position throughout with some diminished light touch over his anterolateral thigh on the left. Deep tendon reflexes were 1-2+ and symmetric with diminished left knee jerk. There are no pathological reflexes noted. Cerebellar testing found no dysmetria. Fine coordination was grossly intact. There was no gross truncal nor appendicular ataxia noted. Gait, Romberg and tandem were not tested. His head was normocephalic. Skin was clear without masses. Neck was supple without significant meningismus. Lumbosacral spine evaluation revealed limited range of motion. There was a healed lumbar microdiscectomy scar without swelling, tenderness, erythema nor discharge. Pulses were 4+ present and symmetrical throughout. There was a negative Homans sign bilaterally. It should be noted that hip rotation was limited on the left. Straight leg raising caused pain at 70 degrees. IMPRESSION: My impression is that the patient has intractable low back pain with radiation into his left hip and left lower extremity, and what appears to be a left L3-L4 radicular syndrome. He is now status post lumbar decompression and microdiscectomy at L3-L4 and has intractable pain. At this point, clinically and radiographically, there is no sign of a post operative infection. The work up hasbeen incomplete however. RECOMMENDATIONS: Include an MRI scan of lumbosacral spine to be done with and without contrast as well as ESR and C-reactive protein level. The patient also probably will require a pain management consultation and physical therapy for mobilization. He also probably would require an EMG with nerve conduction velocity to both lower extremities, to be done as an outpatient. At this point, depending on results of his workup, as well as his clinical course, it will determine the appropriate further diagnostic and therapeutic approach. I will be happy to follow along and discuss. Thank you for allowing me to participate in the care of this patient. MD JANAY Heath/nanda , 12:00 PM , 12:14 PM MTDKady
[2018-06-17] MEDS: oxyCODONE/Acetaminophen 10/325 Tablet PO PRN ×2 (15:24→21:43)
[2018-06-17] MEDS: HYDROmorphone PF Inj 1 MG/ML Ampul IV.PUSH PRN ×2 (18:20→22:44)
--- NOTE | 2018-06-17 18:21 | P.PNIM ---
Evaluated by surgery. Discussed with nursing. Continue pain control and rehab efforts.
[2018-06-17] MEDS ORDERED: Gadobutrol PF 10 MMOL/10 ML Vial (for RAD) IV.SIG ONE (19:17)
--- NOTE | 2018-06-17 19:53 | MR ---
EXAM DATE: 06/17/2018 7:36 PM EST AGE/SEX: 72 years / Male INDICATIONS: Radiculopathy. Low back and left hip pain. CLINICAL DATA: This is the patient's subsequent encounter. Patient reports that signs and symptoms h ave been present for 3 weeks and indicates a pain score of 6/10. MEDICAL/SURGICAL HISTORY: Hypertension. Gastroesophageal reflux disease. Appendectomy. CABG. Lumbar laminectomy 3 weeks ago. COMPARISON: [facility], LUMBAR SPINE W/O CONTRAST, 05/27/2018. . TECHNIQUE: Multiplanar, multisequence MRI examination of the lumbar spine was performed without and with 8 ml Gadavist (gadobutrol) contrast as a single exam dose. FINDINGS: Comparison is May 27. At [id number] there is no significant abnormality. At L3-4 there is interval left-sided laminectomy. There is some enhancement in the posterior soft tis sues. There is some fluid and enhancement around the left L3 nerve root. Some residual disc bulges no helio at L3-4. At L4-5 there is no significant canal or foraminal stenosis. No discrete disc protrusions. CONCLUSION: 1. At L3-4 there is interval left-sided laminectomy with some residual fluid and enhancement around the exiting left L3 nerve. Mild disc bulge or protrusion is present at the L3-4 level. 2. No new disc protrusions identified. Electronically signed by: Willy Leal MD Board Certified Radiologist 06/17/2018 7:52 PM EST
[2018-06-17] MEDS: Prazosin HCl 1 MG Capsule PO SCH (21:43)
[2018-06-18] MEDS: oxyCODONE/Acetaminophen 10/325 Tablet PO PRN ×4 (01:47→21:19)
[2018-06-18] MEDS: Insulin NovoLOG Aspart Correctional Sugar Inj SQ SCH ×5 (04:14→21:10)
[2018-06-18] MEDS: HYDROmorphone PF Inj 1 MG/ML Ampul IV.PUSH PRN ×4 (04:15→23:51)
[2018-06-18 07:11] LABS: Baso % (Auto) 0.6 % (0.0-2.0); Eos # (Auto) 0.1 th/mm3 (0.0-0.4); Eos % (Auto) 1.7 % (0.0-4.0); Hematocrit 40.7 % (39.0-51.0); Hemoglobin 13.4 gm/dL (13.0-17.0); Lymph # (Auto) 2.2 th/mm3 (1.0-4.8); Lymph % (Auto) 34.2 % (9.0-44.0); Mean Corpuscular HGB Conc 32.8 % (32.0-36.0); Mean Corpuscular Hemoglobin 25.9 pg (27.0-34.0); Mean Platelet Volume 8.6 fL (7.0-11.0); Mono # (Auto) 0.5 th/mm3 (0.0-0.9); Mono % (Auto) 7.1 % (0.0-8.0); Neut # (Auto) 3.7 th/mm3 (1.8-7.7); Neut % (Auto) 56.4 % (16.0-70.0); Platelet Count 169 th/mm3 (150-450); Red Blood Count 5.15 mil/mm3 (4.50-5.90); Red Cell Distribution Width 20.4 % (11.6-17.2); White Blood Count 6.5 th/mm3 (4.0-11.0)
[2018-06-18 07:34] LABS: Calcium 8.6 mg/dL (8.5-10.1); Carbon Dioxide 19.6 meq/L (21.0-32.0); Potassium 3.5 meq/L (3.5-5.1)
[2018-06-18] MEDS: amLODIPine 10 MG Tablet PO SCH (08:30)
[2018-06-18] MEDS: Duloxetine 60 MG DR Capsule PO SCH (08:31)
[2018-06-18] MEDS: Senna/Docusate Sodium 8.6/50 MG Tablet PO SCH ×2 (08:31→21:09)
[2018-06-18] MEDS: CHLORTHALIDONE 12.5 MG PO SCH (08:38)
[2018-06-18] MEDS: JARDIANCE 25 MG PO SCH (08:38)
--- NOTE | 2018-06-18 12:39 | P.PNIM ---
Subjective Interval history: The patient is in bed he is able to ambulate to the bathroom. very supportive of bedside. The patient says still has significant pain. He also has constipation and says enema AT home. Will order enema patient tried medications. No fever or chills. No nausea or vomiting. No chest pain. Says he is anxious sometimes. Says he is coughing at times not but no fever or chills no productive cough. We will add incentive spirometry. Physical Exam Vital signs: Last Vital Signs Temp 98.1 F 06/18/18 07:53 Pulse 112 H 06/18/18 07:53 Resp 17 06/18/18 07:53 BP 107/69 06/18/18 07:53 Pulse Ox 98 06/18/18 07:53 Intake & Output 06/16/18 06/17/18 06/18/18 06/19/18 06:59 06:59 06:59 06:59 Intake Total 960 / 960 Output Total 2024 / 2024 Balance -1065 / -1065 Weight 81.3 kg 81.5 kg Narrative: General appearance: Elderly male, appears in no acute distress Cardiovascular: Regular rate and rhythm. No murmurs, rubs or gallops. Respiratory: Lungs clear to auscultation bilaterally. No wheezes or rhonchi. Abdomen: Soft, nontender, nondistended. No peritoneal signs. Musculoskeletal: No gross deformities. No edema. Left lower extremity range of motion limited secondary to pain. Skin: No obvious rashes or erythema. Neuro: Sensory and motor grossly intact. Cranial nerves II through XII grossly intact. Results Labs CBC & Chem 7: 06/18/18 06:26 06/18/18 06:26 Imaging Imaging: Impressions Lumbar Spine MRI 06/17/18 00:00 CONCLUSION: 1. At L3-4 there is interval left-sided laminectomy with some residual fluid and enhancement around the exiting left L3 nerve. Mild disc bulge or protrusion is present at the L3-4 level. 2. No new disc protrusions identified. Assessment and Plan Plan 1. Left lower extremity pain, status post laminectomy Neurosurgery consulted, appreciate assistance Further work up in progress by neurosurgery Physical therapy/Occupational Therapy Dilaudid for pain 2. Hypotension Likely vagal response secondary to pain Orthostatic vital signs 3. Diabetes mellitus Holding home Lantus as patient n.p.o. Running scale insulin Monitor blood glucose 4. Hypertension/hyperlipidemia Continue home medications DC plan : DC whe ncleared by neurosurgery
--- NOTE | 2018-06-18 16:37 | P.PNNS ---
Subjective Interval history: June 18, 2018 The patient has been stable overnight. In fact his pain may be improved. Physical Exam Vital signs: Vital Signs 06/17/18 20:04 06/17/18 23:11 06/18/18 07:53 Temperature 97.8 F 97.7 F 98.1 F Pulse Rate 92 H 94 H 112 H Respiratory Rate 17 17 17 Blood Pressure 138/73 129/67 107/69 Pulse Oximetry 97 96 98 06/18/18 11:46 Temperature 97.3 F L Pulse Rate 109 H Respiratory Rate 17 Blood Pressure 127/80 Pulse Oximetry 98 Intake & Output 06/17/18 06/18/18 06/18/18 18:59 06:59 18:59 Intake Total 960 / 960 Output Total 1000 / 1000 1025 / 1025 Balance -40 / -40 -1025 / -1025 Weight 81.5 kg Intake: Oral 960 / 960 Output: Urine 1000 / 1000 1025 / 1025 Other: Date of Last Bowel Movement 06/16/18 - Routine Neurological Exam June 18, 2018 He is lying in bed as I enter the room. He is no acute distress. On neurological examination, he is awake and alert. He is oriented by 3. His speech is fluent. Memory is intact recent and remote. Motor examination finds no focal deficits. Sensory examination reveals some decrease to light touch over his anterolateral thigh on the left. He is ambulatory with a walker and continent. The wound is clear. Assessment and Plan - Plan June 18, 2018 The patient is clinically and neurologically stable. A conservative neurosurgical approach is warranted. There is no sign of post operative spinal infection on the follow up MRI. The serum inflammatory markers are essentially normal. The patient would benefit from a referral for outpatient PT and pain management as well as a neurology consultation with an EMG/NCV of both lower extremities. He also should have tight control of his diabetes. Neurosurgery to follow.
[2018-06-18] MEDS: Prazosin HCl 1 MG Capsule PO SCH (21:09)
[2018-06-18] MEDS: Sod Phosphate/Sod Biphosphate (Adult) Enema 133 ML Bottle RECTAL PRN (21:10)
[2018-06-19] MEDS: Insulin NovoLOG Aspart Correctional Sugar Inj SQ SCH ×5 (03:50→22:37)
[2018-06-19] MEDS: oxyCODONE/Acetaminophen 10/325 Tablet PO PRN ×3 (04:33→20:27)
[2018-06-19] MEDS: Duloxetine 60 MG DR Capsule PO SCH (08:11)
[2018-06-19] MEDS: Senna/Docusate Sodium 8.6/50 MG Tablet PO SCH ×2 (08:11→22:39)
[2018-06-19] MEDS: HYDROmorphone PF Inj 1 MG/ML Ampul IV.PUSH PRN ×3 (08:11→22:16)
[2018-06-19] MEDS: amLODIPine 10 MG Tablet PO SCH (08:11)
--- NOTE | 2018-06-19 13:02 | P.DS ---
DS: Providers Date of admission: 06/17/18 01:30 Primary care physician: Ngozi Yoo MD Consults: 06/17/18 00:18 Consult to Neurosurgery Routine Consulting Provider: Ok Martinez Preferred Shotweld Operator:: Avery Curiel Patient known to:: Avery Veena Reason for Consultation: s/p L3-L4 laminectomy, microdiscectomy on 05/30/18 Notified:: Service Spoke with:: [email or web address] Answering service Date Notified:: 06/17/18 Time Notified:: 00:40 Comments:: Per Dr. Curiel answering service, Dr. Curiel is out of town and Dr. Martinez is covering. Consult added to list,but Please call Dr. Martinez private cell in AM Ordering Provider: ANNE MARIE 06/18/18 10:43 HUB Only Consult Order Routine Consulting Provider: [facility] Brief History from admission: 72-year-old male with a past medical history significant for recent laminectomy on 05/[address] Curiel, insulin-dependent diabetes mellitus, hypertension, hyperlipidemia presents to the emergency department as a transfer from [facility] for the evaluation of multiple falls and hypotension. The patient reports he has had pain since postop day 1 when he suffered a fall in the hospital immediately following his surgery. He had an L3-L4 laminectomy and microdiscectomy on 05/30/18. He was working with his physical therapist today when he became lightheaded. His physical therapist took his blood pressure and found to be 60/44. The patient reports his blood pressure dropped secondary to his acute pain. He states he has pain in his left hip that radiates to the groin and down the back of the leg. He states it is so painful that he is unable to weight-bear. He currently walks with a walker. He denies any chest pain or shortness of breath. No abdominal pain. No nausea/vomiting/diarrhea. No fever/chills. DS: Summary General appearance: Elderly male, appears in no acute distress Cardiovascular: Regular rate and rhythm. No murmurs, rubs or gallops. Respiratory: Lungs clear to auscultation bilaterally. No wheezes or rhonchi. Abdomen: Soft, nontender, nondistended. No peritoneal signs. Musculoskeletal: No gross deformities. No edema. Left lower extremity range of motion limited secondary to pain. Skin: No obvious rashes or erythema. Neuro: Sensory and motor grossly intact. Cranial nerves II through XII grossly intact. Results Labs CBC & Chem 7: 06/18/18 06:26 document embedded image 06/18/18 06:26 document embedded image Assessment and Plan Plan 1. Left lower extremity pain, status post laminectomy Neurosurgery consulted, appreciate assistance Further work up in progress by neurosurgery Physical therapy/Occupational Therapy Dilaudid for pain Patient MRI without infection. Evaluated by neurosurgical team no intervention. Patient is clear for discharge by neurosurgery to follow-up as outpatient with neurology to have EMG studies as outpatient, also to follow-up with pain management as outpatient and have physical therapy and OT at discharge. Case management consulted for discharge planning 2. Hypotension Likely vagal response secondary to pain Orthostatic vital signs 3. Diabetes mellitus Holding home Lantus as patient n.p.o. Running scale insulin Monitor blood glucose 4. Hypertension/hyperlipidemia Continue home medications 5. Severe constipation not alleviated by p.o. meds for bowel regimen. Added enema. Added GoLYTELY as patient did not have a bowel movement even with enema. Patient had 3 BMs prior to discharge Pain is fairly controlled Patient is able to abulate with a walker. Prior to discharge neurosurgery Dr Hirsch has been at the bedside for more than 45 minutes and answered all patient and girlfriend request at patient and girlfriend request who refusing to leave without talking and reviewing imaging with neurosurgeon Patient says his girlfriend is managing all his medications, however he takes decisions Patient improved, dc home in stable condition. Per neurosurgery recommendation patient to follow up as OP with neurology for a EMG studies. Also to follow up as OP with pain management. [employer] Prescription Drug Monitoring Database has been queried and verified prior to prescribing the controlled substance. Acute pain exception. This patient has normal, predicted, physiological, and time limited response to an adverse mechanical stimulus associated with surgery, trauma, or acute illness as described in my notes. There is a lack of alternative treatment options other than to include the prescribed narcotic treatment for this condition. Time Spent with Patient Total time spent providing and/or coordinating discharge services: Greater than 30 minutes Exam Narrative Exam Narrative: General appearance: Elderly male, appears in no acute distress Cardiovascular: Regular rate and rhythm. No murmurs, rubs or gallops. Respiratory: Lungs clear to auscultation bilaterally. No wheezes or rhonchi. Abdomen: Soft, nontender, nondistended. No peritoneal signs. Musculoskeletal: No gross deformities. No edema. Left lower extremity range of motion limited secondary to pain. Skin: No obvious rashes or erythema. Neuro: Sensory and motor grossly intact. Cranial nerves II through XII grossly intact. Results Labs on day of discharge: Labs from last 24 hours 06/19/18 06/19/18 06/18/18 08:17 02:59 20:29 POC Glucose 161 H 182 H 283 H 06/18/18 06/18/18 16:48 11:56 POC Glucose 340 H 263 H Impressions ITS Impressions Lumbar Spine MRI 06/17/18 00:00 CONCLUSION: 1. At L3-4 there is interval left-sided laminectomy with some residual fluid and enhancement around the exiting left L3 nerve. Mild disc bulge or protrusion is present at the L3-4 level. 2. No new disc protrusions identified. Discharge Plan Discharge Disposition Patient Disposition: W/Home Health Service Discharge Condition Condition: Stable Discharge Order Discharge Orders: Discharge Order (Routine); Ordered 06/19/18 Ordered By: Fany Moran Discharge Details Anticipated Discharge Date: 05/20/18 Discharge Comment: DC when cleared by neurosurgery Physicians Team ED Provider: Jacky Hwang Primary Care Provider: Ngozi Yoo Attending Provider: Fany Moran Other Providers: Ok Martinez ; [facility] Rxs /Orders / Referrals /Forms Prescriptions: New hydromorphone [Dilaudid] 2 mg tablet 2 mg PO Q4-6H PRN (Reason: Acute Pain Exemption) Qty: 12 RF: 0 Continue insulin aspart U-100 [Novolog U-100 Insulin aspart] 100 unit/mL Solution 10 unit SUBCUT AC LUNCH RF: 0 prazosin 1 mg Capsule 3 mg PO HS RF: 0 omeprazole 40 mg Capsule,Delayed Release(Dr/Ec) 40 mg PO BID RF: 0 aspirin [Aspir-81] 81 mg Tablet,Delayed Release (Dr/Ec) 81 mg PO DAILY RF: 0 amlodipine 10 mg Tablet 10 mg PO DAILY RF: 0 rosuvastatin 40 mg Tablet 40 mg PO DAILY RF: 0 duloxetine 60 mg Capsule,Delayed Release(Dr/Ec) 60 mg PO DAILY RF: 0 melatonin 10 mg Tablet 6 mg PO HS RF: 0 empagliflozin 25 mg Tablet 25 mg PO DAILY RF: 0 Lantus U-100 Insulin 25 units Sub-Q HS RF: 0 magnesium citrate solution 150 ml PO DAILY PRN (Reason: constipation) Qty: 296 RF: 0 turmeric 400 mg Capsule 1 tab PO DAILY RF: 0 chlorthalidone 25 mg Tablet 12.5 mg PO DAILY RF: 0 Discontinued oxycodone-acetaminophen 5-325 mg Tablet 1 tab PO Q4-6H PRN (Reason: Pain) RF: 0 Referrals: [facility] [Outside] - See Instructions Avery Curiel MD [NEUROSURGERY] - See Instructions ( Please call the physician's office to book the appointment to be seen Follow up with Dr Curiel in his office 06/21/17 ) Pola Vasquez MD, PhD [Physician] - See Instructions (neuropathy, s/p laminectomy) Ngozi Yoo MD [Primary Care Provider] - See Instructions ( Please call the physician's office to book the appointment to be seen within [2-3 days ].) Randell Gimenez MD [Physician] - See Instructions ( Please call the physician's office to book the appointment to be seen within [2-3 days]. Patient with pain post laminectomy ) Discharge Instructions Patient Printed Instructions: Acute Low Back Pain (ED), Fall Prevention (DC), Deep Vein Thrombosis Prevention (DC), Diabetes and Nutrition (DC), Diabetes and Exercise (DC) Additional Instructions: ATTEND ALL F/U APPTS TAKE MEDS PRESCRIBED IN CASE OF EMERGENCY CALL 911 OR RETURN TO EMERGENCY ROOM Post Discharge Care Plan Care Plan Goals: Your Health Problems: Goals to Promote Your Health: * To prevent worsening of your condition * To maintain your health at the optimal level Directions to Meet Your Goals: * Take your medications as prescribed * Follow your dietary instruction * Follow activity as directed * Keep your appointments as scheduled * Take your immunizations and boosters as scheduled * If your symptoms worsen call your PCP * If no PCP go to Urgent Care or Emergency Room Smoking is dangerous to your health. Avoid second hand smoke. You may reach the 24-hour crisis hotline for domestic abuse at . Status ED Status: Left Department
--- NOTE | 2018-06-19 13:02 | P.DCO ---
Physical Therapy Order: Evaluate and treat Occupational Therapy Order: Evaluate and treat Home Health Nursing Order: Medical education, Diabetic education, Medication education-adverse effect and Nursing assessment with vital signs Case Management Consult Case Management Consult-Home Health: Yes I have seen patient Oc Yap on 06/19/18. My clinical findings support the need for the requested home health care services because: Post laminectomy with pain, multiple comorbidities Limited mobility due to disease progression, Deconditioned with increased weakness and Medication compliance is questionable I certify that my clinical findings support that this patient is homebound because: Post-op weakness and Unsteady gait/balance
[2018-06-19] MEDS: JARDIANCE 25 MG PO SCH (13:26)
[2018-06-19] MEDS: CHLORTHALIDONE 12.5 MG PO SCH (13:27)
[2018-06-19] MEDS: Sod Phosphate/Sod Biphosphate (Adult) Enema 133 ML Bottle RECTAL PRN (15:38)
[2018-06-19] MEDS ORDERED: PEG 3350/E-Lyte Soln 4000 ML Bottle PO ONE (16:08)
--- NOTE | 2018-06-19 16:11 | P.PNIM ---
Subjective Interval history: The patient is feeling a little bit better today. He is anxious. Says he still do not have a bowel movement. We will give GoLYTELY. Says he had before the bowel prep for colonoscopy and it did work well. Does not have pain at this time in his back and he is able to ambulate with a walker. Discussed with the patient at length plan for discharge possible tomorrow if he has a bowel movement. We will also do a KUB this patient with constipation for many days now. No abdominal pain. No fever or chills. Patient asked me to talk with his girlfriend by phone and explained medical problems. Patient and girlfriend will like to have neurosurgeon to talk with him and the girlfriend. Physical Exam Vital signs: Last Vital Signs Temp 97.7 F 06/19/18 12:00 Pulse 94 H 06/19/18 12:00 Resp 19 06/19/18 12:00 BP 106/55 L 06/19/18 12:00 Pulse Ox 97 06/19/18 12:00 Intake & Output 06/17/18 06/18/18 06/19/18 06/20/18 06:59 06:59 06:59 06:59 Intake Total 960 / 960 Output Total 2024 / 2024 Balance -1065 / -1065 Weight 81.3 kg 81.5 kg Narrative: General appearance: Elderly male, appears in no acute distress Cardiovascular: Regular rate and rhythm. No murmurs, rubs or gallops. Respiratory: Lungs clear to auscultation bilaterally. No wheezes or rhonchi. Abdomen: Soft, nontender, nondistended. No peritoneal signs. Musculoskeletal: No gross deformities. No edema. Left lower extremity range of motion limited secondary to pain. Skin: No obvious rashes or erythema. Neuro: Sensory and motor grossly intact. Cranial nerves II through XII grossly intact. Results Labs CBC & Chem 7: 06/18/18 06:26 06/18/18 06:26 Assessment and Plan Plan 1. Left lower extremity pain, status post laminectomy Neurosurgery consulted, appreciate assistance Further work up in progress by neurosurgery Physical therapy/Occupational Therapy Dilaudid for pain Patient MRI without infection. Evaluated by neurosurgical team no intervention. Patient is clear for discharge by neurosurgery to follow-up as outpatient with neurology to have EMG studies as outpatient, also to follow-up with pain management as outpatient and have physical therapy and OT at discharge. Case management consulted for discharge planning 2. Hypotension Likely vagal response secondary to pain Orthostatic vital signs 3. Diabetes mellitus Holding home Lantus as patient n.p.o. Running scale insulin Monitor blood glucose 4. Hypertension/hyperlipidemia Continue home medications 5. Severe constipation not alleviated by p.o. meds for bowel regimen. Added enema. Add GoLYTELY as patient did not have a bowel movement even with enema. We will also do KUB. DC plan : DC when cleared by neurosurgery and after having a bowel movement Discussed with the patient, his girlfriend at the patient request by phone, nurse.
--- NOTE | 2018-06-19 16:58 | XR ---
EXAM DATE: 06/19/2018 4:52 PM EST AGE/SEX: 72 years / Male INDICATIONS: Constipation CLINICAL DATA: This is the patient's subsequent encounter. Patient reports that signs and symptoms h ave been present for 1 week and indicates a pain score of 3/10. MEDICAL/SURGICAL HISTORY: . Hypertension. Gastroesophageal reflux disease.3 weeks ago. Cholec ystectomy. Appendectomy. CABG. Lumbar laminectomy COMPARISON: No prior exams available for comparison. FINDINGS: Significant amount of retained stool is noted. There is no evidence of pathologic distention, free a ir or mass effect. Postcholecystectomy clips are noted. CONCLUSION: Significant amount retained stool in the colon. No evidence of obstruction. Electronically signed by: Pavel Boone MD Board Certified Radiologist 06/19/2018 4:56 PM EST
[2018-06-19] MEDS: Prazosin HCl 1 MG Capsule PO SCH (22:44)
[2018-06-20] MEDS: oxyCODONE/Acetaminophen 10/325 Tablet PO PRN ×2 (02:32→12:13)
[2018-06-20] MEDS: Insulin NovoLOG Aspart Correctional Sugar Inj SQ SCH ×5 (03:10→20:55)
[2018-06-20] MEDS: HYDROmorphone PF Inj 1 MG/ML Ampul IV.PUSH PRN (08:09)
[2018-06-20] MEDS: Senna/Docusate Sodium 8.6/50 MG Tablet PO SCH ×2 (08:10→20:10)
[2018-06-20] MEDS: amLODIPine 10 MG Tablet PO SCH (08:10)
[2018-06-20] MEDS: Duloxetine 60 MG DR Capsule PO SCH (08:11)
[2018-06-20] MEDS: JARDIANCE 25 MG PO SCH (08:21)
[2018-06-20] MEDS: CHLORTHALIDONE 12.5 MG PO SCH (08:21)
--- NOTE | 2018-06-20 16:36 | P.PNIM ---
Subjective Interval history: The patient is ambulating in the hallways with a walker doeswnt appear in pain. He denies chest pain or sob. Patient has no fever or chills. No n/v/d/c. He has 3 large BMs. Constipation resolved. Neurosurgery has seen the patient today Dr Rivera and has discussed with the patient and girlfriend at length > 45 minutes at bedise showing imaging as well. Patient feels comfortable to go home however after he spokw with his girlfriend he changed his mind. Girlfriend wants to appeal for discharge Physical Exam Vital signs: Last Vital Signs Temp 98.0 F 06/20/18 12:00 Pulse 102 H 06/20/18 12:00 Resp 18 06/20/18 12:40 BP 112/76 06/20/18 12:00 Pulse Ox 98 06/20/18 12:00 Intake & Output 06/18/18 06/19/18 06/20/18 06/21/18 06:59 06:59 06:59 06:59 Intake Total 960 / 960 480 / 480 Output Total 2024 / 2024 Balance -1065 / -1065 480 / 480 Weight 81.5 kg 81.5 kg Narrative: General appearance: Elderly male, appears in no acute distress Cardiovascular: Regular rate and rhythm. No murmurs, rubs or gallops. Respiratory: Lungs clear to auscultation bilaterally. No wheezes or rhonchi. Abdomen: Soft, nontender, nondistended. No peritoneal signs. Musculoskeletal: No gross deformities. No edema. Left lower extremity range of motion limited secondary to pain. Skin: No obvious rashes or erythema. Neuro: Sensory and motor grossly intact. Cranial nerves II through XII grossly intact. Results Labs CBC & Chem 7: 06/18/18 06:26 06/18/18 06:26 Imaging Imaging: Impressions Abdomen X-Ray 06/19/18 00:00 CONCLUSION: Significant amount retained stool in the colon. No evidence of obstruction. Assessment and Plan Plan 1. Left lower extremity pain, status post laminectomy Neurosurgery consulted, appreciate assistance Further work up in progress by neurosurgery Physical therapy/Occupational Therapy Dilaudid for pain Patient MRI without infection. Evaluated by neurosurgical team no intervention. Patient is clear for discharge by neurosurgery to follow-up as outpatient with neurology to have EMG studies as outpatient, also to follow-up with pain management as outpatient and have physical therapy and OT at discharge. Case management consulted for discharge planning 2. Hypotension Likely vagal response secondary to pain Orthostatic vital signs 3. Diabetes mellitus Holding home Lantus as patient n.p.o. Running scale insulin Monitor blood glucose 4. Hypertension/hyperlipidemia Continue home medications 5. Severe constipation not alleviated by p.o. meds for bowel regimen. Added enema. Added GoLYTELY as patient did not have a bowel movement even with enema. Patient had 3 BMs prior to discharge Pain is fairly controlled Patient is able to ambulate with a walker. on 06/20/[address] Hirsch has been at the bedside for more than 45 minutes and answered all patient and girlfriend request at patient and girlfriend request who refusing to leave without talking and reviewing imaging with neurosurgeon I discussed with neurosurgeon recommends dilaudid po at DC for acute pain and patient to see pain management as OP. To continue PT. EFORCSE reviewed and prescription printed Patient says his girlfriend is managing all his medications, however he takes decisions Patient improved. Had 3BMs Per neurosurgery recommendation patient to follow up as OP with neurology for a EMG studies. Also to follow up as OP with pain management. Patient after speaking with his girlfriend is refusing to be discharged and girlfriend is appealing the discharge
[2018-06-20] MEDS: Acetaminophen 325 MG Tablet PO PRN (20:09)
[2018-06-20] MEDS: Prazosin HCl 1 MG Capsule PO SCH (20:10)
[2018-06-21] MEDS: Insulin NovoLOG Aspart Correctional Sugar Inj SQ SCH ×4 (03:13→21:32)
[2018-06-21] MEDS: Acetaminophen 325 MG Tablet PO PRN ×2 (04:02→11:14)
[2018-06-21] MEDS: Senna/Docusate Sodium 8.6/50 MG Tablet PO SCH ×2 (08:25→21:33)
[2018-06-21] MEDS: amLODIPine 10 MG Tablet PO SCH (08:25)
[2018-06-21] MEDS: Duloxetine 60 MG DR Capsule PO SCH (08:25)
[2018-06-21] MEDS: JARDIANCE 25 MG PO SCH (09:00)
[2018-06-21] MEDS: CHLORTHALIDONE 12.5 MG PO SCH (09:00)
[2018-06-21] MEDS ORDERED: HYDROmorphone PF Inj 0.5 MG/0.5 ML Syringe IV.PUSH ONE (13:55)
--- NOTE | 2018-06-21 14:10 | P.PNNS ---
Subjective Interval history: fiance phoning our office as patient is still in severe pain and would like to speak with Dr. Curiel and requests reevaluation. pt complains pain not currently being controlled on current pain regimen. pain located left lateral hip and radiates down left anterior thigh to knee, and to left groin, medial thigh. left leg oly when he tries to ambulate. he is constipated and only has very small amt of bowel movement a few days ago. he is passing gas. denies urinary incontinence. new MRI L spine completed. Physical Exam Vital signs: Vital Signs 06/20/18 16:00 06/20/18 18:38 06/20/18 19:10 Temperature 98.4 F 97.6 F Pulse Rate 98 H 93 H Respiratory Rate 16 18 17 Blood Pressure 111/55 L 130/76 Pulse Oximetry 96 97 06/21/18 00:10 06/21/18 04:10 06/21/18 07:35 Temperature 97.7 F 97.5 F L 97.4 F L Pulse Rate 101 H 95 H 89 Respiratory Rate 17 18 18 Blood Pressure 123/65 153/78 H 129/73 Pulse Oximetry 97 97 96 06/21/18 11:40 Temperature 97.2 F L Pulse Rate 93 H Respiratory Rate 18 Blood Pressure 136/71 Pulse Oximetry 96 Intake & Output 06/20/18 06/21/18 06/21/18 18:59 06:59 18:59 Intake Total 740 / 740 600 / 600 Output Total 600 / 600 375 / 375 Balance 140 / 140 225 / 225 Weight 81.5 kg Intake: Oral 740 / 740 600 / 600 Output: Urine 600 / 600 375 / 375 Other: # Voids 2 1 Date of Last Bowel Movement 06/19/18 06/19/18 06/19/18 # Bowel Movements 0 Narrative: Awake, alert 5- left iliopsoas, quadriceps, hamstrings, 5/5 TA, gastrocnemius, 5/5 RLE and bilateral UE DTR Left knee absent, right knee 1+ Plantars flexors bilaterally No ankle clonus decreased sensation following left L4 distribution Assessment and Plan - Plan Lumbar Spine MRI 06/17/18 00:00 CONCLUSION: 1. At L3-4 there is interval left-sided laminectomy with some residual fluid and enhancement around the exiting left L3 nerve. Mild disc bulge or protrusion is present at the L3-4 level. 2. No new disc protrusions identified. discussed with Dr. Curiel, Awaiting Dr. Curiel review of new MRI and further recommendations will add Flexeril to pain regimen, pt unable to take Gabapentin
--- NOTE | 2018-06-21 16:37 | P.PNIM ---
Subjective Interval history: The patient is in bed does not appear in acute distress. He does have a short temper he has a history of PTSD. Patient still complains of pain and he wants to see Dr. Curiel. Was seen by neurosurgical PA today and Dr. Curiel will come later to evaluate. Girlfriend and other family at bedside with multiple questions all answered to best of my ability. Spent more than 40 minutes with the patient and family. Physical Exam Vital signs: Last Vital Signs Temp 97.2 F L 06/21/18 11:40 Pulse 93 H 06/21/18 11:40 Resp 18 06/21/18 11:40 BP 136/71 06/21/18 11:40 Pulse Ox 96 06/21/18 11:40 Intake & Output 06/19/18 06/20/18 06/21/18 06/22/18 06:59 06:59 06:59 06:59 Intake Total 480 / 480 1340 / 1340 Output Total 975 / 975 Balance 480 / 480 365 / 365 Weight 81.5 kg 81.5 kg Results Labs CBC & Chem 7: 06/18/18 06:26 06/18/18 06:26 Assessment and Plan Plan 1. Left lower extremity pain, status post laminectomy Neurosurgery consulted, appreciate assistance Further work up in progress by neurosurgery Physical therapy/Occupational Therapy Dilaudid for pain Patient MRI without infection. Evaluated by neurosurgical team no intervention. Patient is clear for discharge by neurosurgery to follow-up as outpatient with neurology to have EMG studies as outpatient, also to follow-up with pain management as outpatient and have physical therapy and OT at discharge. Case management consulted for discharge planning Pain management per surgeon 2. Hypotension Likely vagal response secondary to poss pain. Also patient takes pain meds Orthostatic vital signs 3. Diabetes mellitus Holding home Lantus when patient n.p.o. Restart Running scale insulin Monitor blood glucose 4. Hypertension/hyperlipidemia Continue home medications 5. Severe constipation not alleviated by p.o. meds for bowel regimen. Added enema. Added GoLYTELY as patient did not have a bowel movement even with enema. Patient had 3 BMs prior to discharge Pain is fairly controlled Patient is able to ambulate with a walker. on 06/20/[address] Hirsch has been at the bedside for more than 45 minutes and answered all patient and girlfriend request at patient and girlfriend request who refusing to leave without talking and reviewing imaging with neurosurgeon I discussed with neurosurgeon recommends dilaudid po at DC for acute pain and patient to see pain management as OP. To continue PT. EFORCSE reviewed and prescription printed Patient says his girlfriend is managing all his medications, however he takes decisions Patient improved. Had 3BMs Per neurosurgery recommendation patient to follow up as OP with neurology for a EMG studies. Also to follow up as OP with pain management. Patient after speaking with his girlfriend is refusing to be discharged and girlfriend is appealing the discharge Dr Curiel will see patient and also will discuss with the family today
[2018-06-21] MEDS: HYDROmorphone PF Inj 1 MG/ML Ampul IV.PUSH PRN (20:03)
[2018-06-21] MEDS: Prazosin HCl 1 MG Capsule PO SCH (21:33)
[2018-06-22] MEDS: HYDROmorphone PF Inj 1 MG/ML Ampul IV.PUSH PRN ×4 (03:45→21:56)
[2018-06-22] MEDS: Duloxetine 60 MG DR Capsule PO SCH (09:37)
[2018-06-22] MEDS: amLODIPine 10 MG Tablet PO SCH (09:38)
[2018-06-22] MEDS: Senna/Docusate Sodium 8.6/50 MG Tablet PO SCH ×2 (09:38→20:33)
[2018-06-22] MEDS: CHLORTHALIDONE 12.5 MG PO SCH (09:43)
[2018-06-22] MEDS: JARDIANCE 25 MG PO SCH (09:44)
[2018-06-22] MEDS: Insulin NovoLOG Aspart Correctional Sugar Inj SQ SCH ×5 (09:45→22:34)
--- NOTE | 2018-06-22 10:04 | P.PNNS ---
Subjective Interval history: cotinues to c/o of severe pain left hip and radiates left thigh and groin. Physical Exam Vital signs: Vital Signs 06/21/18 11:40 06/21/18 19:20 06/21/18 23:25 Temperature 97.2 F L 98 F 97.8 F Pulse Rate 93 H 96 H 91 H Respiratory Rate 18 18 18 Blood Pressure 136/71 120/74 119/83 Pulse Oximetry 96 97 98 06/22/18 08:00 Temperature 98 F Pulse Rate 91 H Respiratory Rate 18 Blood Pressure 127/69 Pulse Oximetry 96 Intake & Output 06/21/18 06/22/18 06/22/18 18:59 06:59 18:59 Intake Total 140 / 140 Output Total 775 / 775 Balance -635 / -635 Weight 84 kg Intake: Oral 140 / 140 Output: Urine 775 / 775 Other: Date of Last Bowel Movement 06/19/18 06/21/18 # Bowel Movements 0 Narrative: Awake, alert. 5- left iliopsoas, quadriceps, hamstrings, 5/5 TA, gastrocnemius, 5/5 RLE and bilateral UE DTR Left knee absent, right knee 1+ Plantars flexors bilaterally No ankle clonus decreased sensation following left L4 distribution Assessment and Plan - Plan left hip pain L4 radiculopathy Lumbar Spine MRI 06/17/18 00:00 CONCLUSION: 1. At L3-4 there is interval left-sided laminectomy with some residual fluid and enhancement around the exiting left L3 nerve. Mild disc bulge or protrusion is present at the L3-4 level. 2. No new disc protrusions identified. Plan: consulted IR for L3-[address] Left hip to r/o fracture due to recent fall
[2018-06-22 11:09] LABS: Activated Partial Thrombo Time 23.6 sec (23.4-31.7); Prothrombin Time 10.5 sec (9.8-11.6)
[2018-06-22] MEDS ORDERED: Sodium Chlor 0.9% Inj 10 ML ONE (13:52)
[2018-06-22] MEDS ORDERED: Dexamethasone PF Inj 10 MG/ML Vial ONE (13:52)
--- NOTE | 2018-06-22 14:58 | P.RAD ---
Post Procedure Progress Note - Pre Procedure Diagnosis (1) Chronic pain (2) Acute back pain - Post Procedure Diagnosis (1) Chronic pain (2) Acute back pain - Procedure Information Procedure Date: 06/22/18 Supervising Radiologist: Brian Hoskins MD Estimated blood loss (mL): 0 Anesthesia: Local - Plan of Activity Patient to Unit: Nursing Unit Patient Condition: Good Additional Comments: L3/L4 epidural injection completed. Full dictated report to follow See PACS Report for procedural detail/treatment.
[2018-06-22] MEDS ORDERED: Iohexol 350 MG/ML 50 ML Vial (for Rad Diag) IV.PUSH ONE (15:14)
--- NOTE | 2018-06-22 15:49 | CT ---
EXAM DATE: 06/22/2018 3:34 PM EST AGE/SEX: 72 years / Male INDICATIONS: Left hip pain, evaluate for fracture. CLINICAL DATA: This is the patient's initial encounter. Patient reports that signs and symptoms have been present for 1 day and indicates a pain score of 5/10. MEDICAL/SURGICAL HISTORY: Diabetes. Hypertension. Cardiovascular disease. Appendectomy. CABG. RADIATION DOSE: 39.63 CTDI (mGy) COMPARISON: [facility], CT ABDOMEN & PELVIS W CONTRAST, 01/28/2018. . TECHNIQUE: Multiple contiguous axial images were acquired using a multirow detector CT scanner witho ut contrast. Multiplanar reconstruction was performed in the sagittal and coronal planes. Using aut omated exposure control and adjustment of the mA and/or kV according to patient size, radiation dose was kept as low as reasonably achievable to obtain optimal diagnostic quality images. DICOM format i mage data is available electronically for review and comparison. FINDINGS: Bones: The bony structures about the hip are in normal alignment. The trabecular pattern of the fem oral neck is intact. No fracture is seen. The bony pelvic ring is intact. Joints: No significant arthropathy or bony hypertrophy is seen. The articular surface of the femora l head is smooth. Soft Tissues: Unremarkable for a non-contrast study. Other: No foreign bodies seen. CONCLUSION: 1. Intact left hip 2. No evidence of fracture, dislocation or significant arthropathy. Electronically signed by: Pavel Boone MD Board Certified Radiologist 06/22/2018 3:48 PM EST
--- NOTE | 2018-06-22 16:43 | IR ---
EXAM DATE: 06/22/2018 3:33 PM EST AGE/SEX: 72 years / Male INDICATIONS: Patient post laminectomy on 05/30. Unable to control pain. CLINICAL DATA: This is the patient's initial encounter. Patient reports that signs and symptoms have been present for 1 month and indicates a pain score of 8/10. MEDICAL/SURGICAL HISTORY: Diabetes. Gastroesophageal reflux disease. Hypertension. depressio n, PTSD, Appendectomy. CABG. neck surgery, lumbar surgery, Heart cath, colon surgery COMPARISON: [facility], LUMBAR SPINE LAT ONLY 1V, 05/30/2018. . FLUORO TIME (min): 7.9 IMAGE SERIES: 2 RADIATION DOSE: 672 mGy CAK ACCESS SITE: L3 l4 CONTRAST (cc): 5 cc Omnipaque (iohexol) 300 MEDICATION(S): 1 mg dexamethazone RESPONSE: Pain Score Pre Procedure: 8/10 Pain Score Post Procedure: 07/30 PROCEDURE: 1. Fluoroscopically guided epidural injection. The risks, benefits and alternatives to the procedure were explained and verbal and written consent w as obtained. The site was prepped in sterile fashion. Full sterile technique was used, including ca p, mask, sterile gloves and gown and a large sterile sheet. Hand hygiene and 2% chlorhexidine and/or betadine/alcohol prep was utilized per protocol for cutaneous antisepsis. The skin and subcutaneous tissues were infiltrated with local anesthetic solution. With fluoroscopic guidance the targeted epidural space at L3-4 was localized. Positive contrast was a dministered. The initial injection demonstrated some contrast within the thecal sac. The 25-gauge nee dle was removed. A second area more cephalad was selected. The needle was advanced down to the epidur al space. Injection of contrast confirmed placement within the epidural space. A cocktail consisting of 1 mg dexamethasone, 1 cc of lidocaine and 3 cc of saline was injected surrounding the space. The patient's preprocedure pain and post procedure pain levels were recorded. The patient tolerated the p rocedure well. CONCLUSION: 1. Uncomplicated fluoroscopically guided epidural injection as above. Electronically signed by: Brian Hoskins MD Board Certified Radiologist 06/22/2018 4:42 PM EST
[2018-06-22] MEDS: Prazosin HCl 1 MG Capsule PO SCH (20:34)
--- NOTE | 2018-06-22 21:08 | P.PNIM ---
Subjective Interval history: The patient was seen earlier today after he returned from IR and CT. He is in bes sleepy appears in nad. Says he still has back pain. No n/v/ d/c. No fever or chills. No abdominal pain . Physical Exam Vital signs: Last Vital Signs Temp 98 F 06/22/18 16:00 Pulse 104 H 06/22/18 16:00 Resp 18 06/22/18 16:00 BP 136/63 06/22/18 16:00 Pulse Ox 95 06/22/18 16:00 Intake & Output 06/20/18 06/21/18 06/22/18 06/23/18 06:59 06:59 06:59 06:59 Intake Total 480 / 480 1340 / 1340 140 / 140 Output Total 975 / 975 775 / 775 800 / 800 Balance 480 / 480 365 / 365 -635 / -635 -800 / -800 Weight 81.5 kg 81.5 kg 84 kg Narrative: General appearance: Elderly male, appears in no acute distress. Cardiovascular: Regular rate and rhythm. No murmurs, rubs or gallops. Respiratory: Lungs clear to auscultation bilaterally. No wheezes or rhonchi. Abdomen: Soft, nontender, nondistended. No peritoneal signs. Musculoskeletal: No gross deformities. No edema. Skin: No obvious rashes or erythema. Neuro: Sensory and motor grossly intact. Cranial nerves II through XII grossly intact. Results Labs CBC & Chem 7: 06/18/18 06:26 06/18/18 06:26 Imaging Imaging: Impressions Epidural Injection 06/22/18 00:00 CONCLUSION: 1. Uncomplicated fluoroscopically guided epidural injection as above. Hip CT 06/22/18 00:00 CONCLUSION: 1. Intact left hip 2. No evidence of fracture, dislocation or significant arthropathy. Assessment and Plan Plan 1. Left lower extremity pain, status post laminectomy Neurosurgery consulted, appreciate assistance Further work up in progress by neurosurgery Physical therapy/Occupational Therapy Dilaudid for pain Patient MRI without infection. Evaluated by neurosurgical team no intervention. Patient is clear for discharge by neurosurgery to follow-up as outpatient with neurology to have EMG studies as outpatient, also to follow-up with pain management as outpatient and have physical therapy and OT at discharge. Case management consulted for discharge planning Pain management per surgeon S/P L3/L4 epidural injection by IR on 06/22/[address] left hip on 06/22/18 , Imaging reviewed and normal hip, no evidence of fracture. 2. Hypotension Likely vagal response secondary to poss pain. Also patient takes pain meds Orthostatic vital signs 3. Diabetes mellitus, uncontrolled. Last A1c in the records of > 9 in 2016. Repeat A1c Holding home Lantus when patient n.p.o. Restarted afterwards Running scale insulin Monitor blood glucose Restart home meds 4. Hypertension/hyperlipidemia Continue home medications 5. Severe constipation not alleviated by p.o. meds for bowel regimen. Also received enema. Added GoLYTELY as patient did not have a bowel movement even with enema. Patient had 3 BMs 06/19/18 Pain is fairly controlled Patient is able to ambulate with a walker. on 06/20/[address] Hirsch has been at the bedside for more than 45 minutes and answered all patient and girlfriend request at patient and girlfriend request who refusing to leave without talking and reviewing imaging with neurosurgeon I discussed with neurosurgeon recommends dilaudid po at DC for acute pain and patient to see pain management as OP. To continue PT. EFORCSE reviewed and prescription printed Patient says his girlfriend is managing all his medications, however he takes decisions Patient improved. Had 3BMs Per neurosurgery recommendation patient to follow up as OP with neurology for a EMG studies. Also to follow up as OP with pain management. Patient after speaking with his girlfriend is refusing to be discharged and girlfriend is appealing the discharge on 06/20/18 On 06/21 Dr Curiel neurosurgeon also has seen the patient. Neurosurgery has placed patient back on IV dilaudid . on Patient is s/p CT left hip - normal. Also had epidural injection by IR. BS is noted elevated atient has been NPO for the procedure. Restart lantus , check a1c Discussed with the patient nurse
[2018-06-23 06:05] LABS: Baso % (Auto) 0.2 % (0.0-2.0); Eos % (Auto) 0.2 % (0.0-4.0); Hematocrit 40.6 % (39.0-51.0); Hemoglobin 13.5 gm/dL (13.0-17.0); Lymph # (Auto) 1.1 th/mm3 (1.0-4.8); Lymph % (Auto) 17.5 % (9.0-44.0); Mean Corpuscular HGB Conc 33.2 % (32.0-36.0); Mean Corpuscular Hemoglobin 26.2 pg (27.0-34.0); Mean Platelet Volume 8.6 fL (7.0-11.0); Mono # (Auto) 0.4 th/mm3 (0.0-0.9); Mono % (Auto) 6.6 % (0.0-8.0); Neut # (Auto) 4.9 th/mm3 (1.8-7.7); Neut % (Auto) 75.5 % (16.0-70.0); Platelet Count 191 th/mm3 (150-450); Red Blood Count 5.14 mil/mm3 (4.50-5.90); Red Cell Distribution Width 20.1 % (11.6-17.2); White Blood Count 6.5 th/mm3 (4.0-11.0)
[2018-06-23 06:28] LABS: Alanine Aminotransferase 22 U/L (12-78); Albumin 3.4 g/dL (3.4-5.0); Alkaline Phosphatase 74 U/L (45-117); Anion Gap 9 meq/L (5-15); Aspartate Aminotransferase 12 U/L (15-37); Blood Urea Nitrogen 26 mg/dL (7-18); Calcium 8.9 mg/dL (8.5-10.1); Carbon Dioxide 27.9 meq/L (21.0-32.0); Chloride 100 meq/L (98-107); Glomerular Filtration Rate 65 mL/min (>89); Glucose,Random 317 mg/dL (74-106); Potassium 4.1 meq/L (3.5-5.1); Sodium 137 meq/L (136-145); Total Protein 6.8 g/dL (6.4-8.2)
[2018-06-23] MEDS: amLODIPine 10 MG Tablet PO SCH (08:23)
[2018-06-23] MEDS: Senna/Docusate Sodium 8.6/50 MG Tablet PO SCH ×2 (08:23→21:36)
[2018-06-23] MEDS: Duloxetine 60 MG DR Capsule PO SCH (08:24)
[2018-06-23] MEDS: HYDROmorphone PF Inj 1 MG/ML Ampul IV.PUSH PRN ×2 (08:24→18:19)
[2018-06-23] MEDS: CHLORTHALIDONE 12.5 MG PO SCH (08:25)
[2018-06-23] MEDS: JARDIANCE 25 MG PO SCH (08:25)
[2018-06-23] MEDS: Insulin NovoLOG Aspart Correctional Sugar Inj SQ SCH ×5 (08:28→21:38)
[2018-06-23 13:18] LABS: Hemoglobin A1c 10.3 % (4.3-6.0)
[2018-06-23] MEDS ORDERED: BUPIVACAINE 0.75% ONE (14:06)
[2018-06-23] MEDS ORDERED: Iohexol 300 MG/ML 50 ML Vial (for Rad Diag) IVCONTRAST ONE (14:44)
--- NOTE | 2018-06-23 15:01 | P.PNNS ---
Subjective Interval history: Reports the ABEBE injection yesterday did not provide much relief. CT Left hip negative for fractures. continues to complain of left hip, left anterior thigh to knee pain Physical Exam Vital signs: Vital Signs 06/22/18 16:00 06/22/18 21:21 06/23/18 00:24 Temperature 98 F 97.7 F 97.9 F Pulse Rate 104 H 96 H 88 Respiratory Rate 18 20 18 Blood Pressure 136/63 110/55 L 108/57 L Pulse Oximetry 95 96 96 06/23/18 08:00 06/23/18 12:00 Temperature 98 F 97.3 F L Pulse Rate 93 H 98 H Respiratory Rate 18 18 Blood Pressure 121/78 116/69 Pulse Oximetry 97 98 Intake & Output 06/22/18 06/23/18 06/23/18 18:59 06:59 18:59 Intake Total 720 / 720 Output Total 800 / 800 300 / 300 Balance -800 / -800 420 / 420 Weight 81.4 kg Intake: Oral 720 / 720 Output: Urine 800 / 800 300 / 300 Other: # Voids 750 4 Date of Last Bowel Movement 06/21/18 06/21/18 # Bowel Movements 0 0 Narrative: Awake, alert. 5- left iliopsoas, quadriceps, hamstrings, 5/5 TA, gastrocnemius, 5/5 RLE and bilateral UE DTR Left knee absent, right knee 1+ Plantars flexors bilaterally No ankle clonus decreased sensation following left L4 distribution Assessment and Plan - Plan L3-4 left hemilaminectomy, mesiofacetectomy, foraminotomy, microsurgical resection of the disk 05/30/18 L4 radicular pain, s/p L3-4 ABEBE 06/22/18 without relief left hip pain, CT L hip negative for fracture Lumbar Spine MRI 06/17/18 00:00 CONCLUSION: 1. At L3-4 there is interval left-sided laminectomy with some residual fluid and enhancement around the exiting left L3 nerve. Mild disc bulge or protrusion is present at the L3-4 level. 2. No new disc protrusions identified. Plan: CT Left hip reviewed, try for nerve root injection today
--- NOTE | 2018-06-23 15:29 | IR ---
EXAM DATE: 06/23/2018 2:51 PM EST AGE/SEX: 72 years / Male INDICATIONS: Patient presents post laminectomy on 05/30 and unable to control pain. Here for Nerve r oot injection. CLINICAL DATA: This is the patient's initial encounter. Patient reports that signs and symptoms have been present for 1 month and indicates a pain score of 8/10. MEDICAL/SURGICAL HISTORY: Diabetes. Gastroesophageal reflux disease. Hypertension. Depressio n, PTSD Appendectomy. CABG. Neck surgery, lumbar surgery, Heart cath, colon surgery COMPARISON: [facility], EPI INJ LUMBSAC/CAUD FL GUIDED, 06/22/2018. . FLUORO TIME (min): 2:16 IMAGE SERIES: 3 RADIATION DOSE: 89mGy CAK ACCESS SITE: Left L 3-4 CONTRAST (cc): 1cc Omnipaque (iohexol) 300 MEDICATION(S): 1cc bupivacaine (Marcaine) IA 1cc triamcinolone (Kenalog) IA RESPONSE: Pain Score Pre Procedure: 8/10 Pain Score Post Procedure: 8/10 . . PROCEDURE : 1. Fluoroscopically guided nerve root injection. The risks, benefits and alternatives to the procedure were explained and verbal and written consent w as obtained. The site was prepped in sterile fashion. Full sterile technique was used, including ca p, mask, sterile gloves and gown and a large sterile sheet. Hand hygiene and 2% chlorhexidine and/or betadine/alcohol prep was utilized per protocol for cutaneous antisepsis. The skin and subcutaneous tissues were infiltrated with local anesthetic solution. With fluoroscopic guidance the targeted nerve root was localized and positive contrast was injected t o confirm epidural spread. Following this the prescribed medication was injected surrounding the ner ve root sleeve. The patient's preprocedure pain and post procedure pain levels were recorded. CONCLUSION: 1. Uncomplicated fluoroscopically guided nerve root injection as above. Electronically signed by: Jam Bustillos MD Board Certified Radiologist 06/23/2018 3:28 PM EST
--- NOTE | 2018-06-23 17:11 | P.PNIM ---
Subjective Interval history: Seen after nerve block , the patient still complaints of pain. No fever or chills. No nausea, no vomiting. Physical Exam Vital signs: Last Vital Signs Temp 97.3 F L 06/23/18 12:00 Pulse 98 H 06/23/18 12:00 Resp 18 06/23/18 12:00 BP 116/69 06/23/18 12:00 Pulse Ox 98 06/23/18 12:00 Intake & Output 06/21/18 06/22/18 06/23/18 06/24/18 06:59 06:59 06:59 06:59 Intake Total 1340 / 1340 140 / 140 720 / 720 Output Total 975 / 975 775 / 775 1100 / 1100 Balance 365 / 365 -635 / -635 -380 / -380 Weight 81.5 kg 84 kg 81.4 kg Narrative: General appearance: Elderly male, appears in no acute distress. Cardiovascular: Regular rate and rhythm. No murmurs, rubs or gallops. Respiratory: Lungs clear to auscultation bilaterally. No wheezes or rhonchi. Abdomen: Soft, obese, nontender, nondistended. No peritoneal signs. Musculoskeletal: No gross deformities. No edema. Skin: No obvious rashes or erythema. Neuro: Sensory and motor grossly intact. Cranial nerves II through XII grossly intact. Results Labs CBC & Chem 7: 06/23/18 05:29 06/23/18 05:29 Imaging Imaging: Impressions Nerve Block 06/23/18 00:00 CONCLUSION: 1. Uncomplicated fluoroscopically guided nerve root injection as above. Assessment and Plan Plan 1. Left lower extremity pain, status post laminectomy Neurosurgery consulted, appreciate assistance Further work up in progress by neurosurgery Physical therapy/Occupational Therapy Dilaudid for pain Patient MRI without infection. Evaluated by neurosurgical team no intervention. Patient is clear for discharge by neurosurgery to follow-up as outpatient with neurology to have EMG studies as outpatient, also to follow-up with pain management as outpatient and have physical therapy and OT at discharge. Case management consulted for discharge planning Pain management per surgeon S/P L3/L4 epidural injection by IR on 06/22/[address] left hip on 06/22/18 , Imaging reviewed and normal hip, no evidence of fracture. S.P nerve block by IR on 06/23/18 2. Hypotension Likely vagal response secondary to poss pain. Also patient takes pain meds Orthostatic vital signs 3. Diabetes mellitus, uncontrolled. Last A1c in the records of > 9 in 2016. Repeat A1c Holding home Lantus when patient n.p.o. Restarted afterwards Running scale insulin Monitor blood glucose Restart home meds 4. Hypertension/hyperlipidemia Continue home medications 5. Severe constipation not alleviated by p.o. meds for bowel regimen. Also received enema. Added GoLYTELY as patient did not have a bowel movement even with enema. Patient had 3 BMs 06/19/18 Pain is fairly controlled Patient is able to ambulate with a walker. on 06/20/[address] Hirsch has been at the bedside for more than 45 minutes and answered all patient and girlfriend request at patient and girlfriend request who refusing to leave without talking and reviewing imaging with neurosurgeon I discussed with neurosurgeon recommends dilaudid po at DC for acute pain and patient to see pain management as OP. To continue PT. EFORCSE reviewed and prescription printed Patient says his girlfriend is managing all his medications, however he takes decisions Patient improved. Had 3BMs Per neurosurgery recommendation patient to follow up as OP with neurology for a EMG studies. Also to follow up as OP with pain management. Patient after speaking with his girlfriend is refusing to be discharged and girlfriend is appealing the discharge on 06/20/18 On 06/21 Dr Curiel neurosurgeon also has seen the patient. Neurosurgery has placed patient back on IV dilaudid . on Patient is s/p CT left hip - normal. Also had epidural injection by IR. BS is noted elevated patient has been NPO for the procedures. Restarted lantus , check a1c Discussed with the patient nurse
[2018-06-23] MEDS ORDERED: Insulin Detemir Inj 1,000 UNIT/10 ML Vial SQ SCH (21:00)
[2018-06-23] MEDS: Prazosin HCl 1 MG Capsule PO SCH (21:37)
[2018-06-24] MEDS: Melatonin 5 MG Tablet PO PRN (00:08)
[2018-06-24] MEDS: Insulin NovoLOG Aspart Correctional Sugar Inj SQ SCH ×5 (08:29→20:24)
[2018-06-24] MEDS: Duloxetine 60 MG DR Capsule PO SCH (08:30)
[2018-06-24] MEDS: Senna/Docusate Sodium 8.6/50 MG Tablet PO SCH ×2 (08:30→20:24)
[2018-06-24] MEDS: amLODIPine 10 MG Tablet PO SCH (08:30)
[2018-06-24] MEDS: JARDIANCE 25 MG PO SCH (08:33)
[2018-06-24] MEDS: CHLORTHALIDONE 12.5 MG PO SCH (08:33)
--- NOTE | 2018-06-24 09:17 | P.PNIM ---
Subjective Interval history: Patient still with back pain even after the nerve block. However he is noted ambulating with physical therapy the hallways. He is still on Dilaudid IV at this time. Able to eat no nausea or vomiting no diarrhea or constipation. He had a large bowel movement in the morning today. Physical Exam Vital signs: Last Vital Signs Temp 97.2 F L 06/24/18 04:40 Pulse 80 06/24/18 04:40 Resp 17 06/24/18 04:40 BP 118/70 06/24/18 04:40 Pulse Ox 97 06/24/18 04:40 Intake & Output 06/22/18 06/23/18 06/24/18 06/25/18 06:59 06:59 06:59 06:59 Intake Total 140 / 140 720 / 720 300 / 300 Output Total 775 / 775 1100 / 1100 175 / 175 Balance -635 / -635 -380 / -380 125 / 125 Weight 84 kg 81.4 kg 80.2 kg Narrative: General appearance: Elderly male, appears in no acute distress. Cardiovascular: Regular rate and rhythm. No murmurs, rubs or gallops. Respiratory: Lungs clear to auscultation bilaterally. No wheezes or rhonchi. Abdomen: Soft, obese, nontender, nondistended. No peritoneal signs. Musculoskeletal: No gross deformities. No edema. Skin: No obvious rashes or erythema. Neuro: Sensory and motor grossly intact. Cranial nerves II through XII grossly intact. Results Labs CBC & Chem 7: 06/23/18 05:29 06/23/18 05:29 Imaging Imaging: Impressions Nerve Block 06/23/18 00:00 CONCLUSION: 1. Uncomplicated fluoroscopically guided nerve root injection as above. Assessment and Plan Plan 1. Left lower extremity pain, status post laminectomy Neurosurgery consulted, appreciate assistance Further work up in progress by neurosurgery Physical therapy/Occupational Therapy Dilaudid for pain Patient MRI without infection. Evaluated by neurosurgical team no intervention. Patient is clear for discharge by neurosurgery to follow-up as outpatient with neurology to have EMG studies as outpatient, also to follow-up with pain management as outpatient and have physical therapy and OT at discharge. Case management consulted for discharge planning Pain management per surgeon S/P L3/L4 epidural injection by IR on 06/22/[address] left hip on 06/22/18 , Imaging reviewed and normal hip, no evidence of fracture. S.P nerve block by IR on 06/23/18 2. Hypotension Likely vagal response secondary to poss pain. Also patient takes pain meds Orthostatic vital signs 3. Diabetes mellitus, uncontrolled. Last A1c in the records of > 9 in 2016. Repeat A1c this admission of 10.3. Holding home Lantus when patient n.p.o. Restarted afterwards. Monitor and adjust insulin Running scale insulin Monitor blood glucose Restart home meds 4. Hypertension/hyperlipidemia Continue home medications 5. Severe constipation not alleviated by p.o. meds for bowel regimen. Also received enema. Added GoLYTELY as patient did not have a bowel movement even with enema. Patient had 3 BMs 06/19/18 Pain is fairly controlled Patient is able to ambulate with a walker. on 06/20/[address] Hirsch has been at the bedside for more than 45 minutes and answered all patient and girlfriend request at patient and girlfriend request who refusing to leave without talking and reviewing imaging with neurosurgeon I discussed with neurosurgeon recommends dilaudid po at DC for acute pain and patient to see pain management as OP. To continue PT. EFORCSE reviewed and prescription printed Patient says his girlfriend is managing all his medications, however he takes decisions Patient improved. Had 3BMs Per neurosurgery recommendation patient to follow up as OP with neurology for a EMG studies. Also to follow up as OP with pain management. Patient after speaking with his girlfriend is refusing to be discharged and girlfriend is appealing the discharge on 06/20/18 On 06/21 Dr Curiel neurosurgeon also has seen the patient. Neurosurgery has placed patient back on IV dilaudid . on 06/22/ Patient is s/p CT left hip - normal. Also had epidural injection by IR. BS is noted elevated patient has been NPO for the procedures. Restarted lantus , a1c 10.3 Discussed with the patient nurse
[2018-06-24] MEDS: HYDROmorphone PF Inj 1 MG/ML Ampul IV.PUSH PRN ×2 (11:58→20:25)
--- NOTE | 2018-06-24 14:13 | P.PNNS ---
Subjective Interval history: He consinues to have severe pain despite a repeated injection yesterday, which did not provide much relief. CT Left hip was negative for fractures. continues to complain of left hip, left anterior thigh to knee pain Physical Exam Vital signs: Vital Signs 06/23/18 16:00 06/23/18 19:59 06/23/18 23:28 Temperature 98.2 F 97.3 F L 98 F Pulse Rate 84 89 83 Respiratory Rate 18 16 16 Blood Pressure 132/65 117/68 115/67 Pulse Oximetry 97 98 96 06/24/18 04:40 06/24/18 08:00 Temperature 97.2 F L 97.9 F Pulse Rate 80 87 Respiratory Rate 17 17 Blood Pressure 118/70 125/72 Pulse Oximetry 97 98 Intake & Output 06/23/18 06/24/18 06/24/18 18:59 06:59 18:59 Intake Total 300 / 300 Output Total 175 / 175 Balance 125 / 125 Weight 80.2 kg Intake: Oral 300 / 300 Output: Urine 175 / 175 Other: # Voids 4 Date of Last Bowel Movement 06/21/18 06/21/18 06/23/17 # Incontinent Bowel Movements 0 Narrative: General appearance: Elderly male, appears in no acute distress. Cardiovascular: Regular rate and rhythm. No murmurs, rubs or gallops. Respiratory: Lungs clear to auscultation bilaterally. No wheezes or rhonchi. Abdomen: Soft, obese, nontender, nondistended. No peritoneal signs. Musculoskeletal: No gross deformities. No edema. Skin: No obvious rashes or erythema. Neuro: Sensory and motor grossly intact. Cranial nerves II through XII grossly intact. Assessment and Plan - Plan L3-4 left hemilaminectomy, mesiofacetectomy, foraminotomy, microsurgical resection of the disk 05/30/18 Left L4 persistent radicular pain, s/p L3-4 ABEBE 06/22/18 without relief left hip pain, CT L hip negative for fracture Continue neuro checks Continue nonoperative treatment for disk protusion Antiinflammatories Wean dilaudid Daily PT DVT prophylaxis Discussed with Dr Moran
[2018-06-24] MEDS: Insulin Detemir Inj 1,000 UNIT/10 ML Vial SQ SCH (20:23)
[2018-06-24] MEDS: Prazosin HCl 1 MG Capsule PO SCH (20:24)
[2018-06-25] MEDS: HYDROmorphone PF Inj 1 MG/ML Ampul IV.PUSH PRN ×2 (00:14→04:14)
[2018-06-25] MEDS: Insulin NovoLOG Aspart Correctional Sugar Inj SQ SCH ×5 (10:06→22:30)
[2018-06-25] MEDS: Senna/Docusate Sodium 8.6/50 MG Tablet PO SCH ×2 (10:07→21:32)
[2018-06-25] MEDS: Duloxetine 60 MG DR Capsule PO SCH (10:07)
[2018-06-25] MEDS: amLODIPine 10 MG Tablet PO SCH (10:08)
[2018-06-25] MEDS: JARDIANCE 25 MG PO SCH (10:08)
[2018-06-25] MEDS: CHLORTHALIDONE 12.5 MG PO SCH (10:09)
--- NOTE | 2018-06-25 11:34 | P.PNIM ---
Subjective Interval history: The patient is in the chair appears in not acute distress. He was walking 150 feet with physical therapy today. Patient vital signs are stable. However patient still complains of pain and is taking pain medications. No fever or chills. No nausea or vomiting. Discussed with Dr. Curiel earlier today and patient can be discharge tomorrow. However patient is getting upset when I spoke with him regarding discharge today. Also family at bedside significant other at bedside is healing and pointing fingers in my face threatening that she will report to me, she is walking out of the room and asking for the charge nurse. Patient appears more anxious when significant other is at bedside. Physical Exam Vital signs: Last Vital Signs Temp 97.3 F L 06/25/18 08:00 Pulse 93 H 06/25/18 08:00 Resp 18 06/25/18 08:00 BP 132/83 06/25/18 08:00 Pulse Ox 99 06/25/18 08:00 Intake & Output 06/23/18 06/24/18 06/25/18 06/26/18 06:59 06:59 06:59 06:59 Intake Total 720 / 720 300 / 300 1440 / 1440 Output Total 1100 / 1100 175 / 175 1200 / 1200 Balance -380 / -380 125 / 125 240 / 240 Weight 81.4 kg 80.2 kg 80.3 kg Narrative: General appearance: Elderly male, appears in no acute distress. Cardiovascular: Regular rate and rhythm. No murmurs, rubs or gallops. Respiratory: Lungs clear to auscultation bilaterally. No wheezes or rhonchi. Abdomen: Soft, obese, nontender, nondistended. No peritoneal signs. Musculoskeletal: No gross deformities. No edema. Skin: No obvious rashes or erythema. Neuro: Sensory and motor grossly intact. Cranial nerves II through XII grossly intact. Results Labs CBC & Chem 7: 06/23/18 05:29 06/23/18 05:29 Assessment and Plan Plan 1. Left lower extremity pain, status post laminectomy Neurosurgery consulted, appreciate assistance Further work up in progress by neurosurgery Physical therapy/Occupational Therapy Dilaudid for pain Patient MRI without infection. Evaluated by neurosurgical team no intervention. Patient is clear for discharge by neurosurgery to follow-up as outpatient with neurology to have EMG studies as outpatient, also to follow-up with pain management as outpatient and have physical therapy and OT at discharge. Case management consulted for discharge planning Pain management per surgeon S/P L3/L4 epidural injection by IR on 06/22/[address] left hip on 06/22/18 , Imaging reviewed and normal hip, no evidence of fracture. S.P nerve block by IR on 06/23/18 2. Hypotension Likely vagal response secondary to poss pain. Also patient takes pain meds Orthostatic vital signs 3. Diabetes mellitus, uncontrolled. Last A1c in the records of > 9 in 2016. Repeat A1c this admission of 10.3. Holding home Lantus when patient n.p.o. Restarted afterwards. Monitor and adjust insulin Running scale insulin Monitor blood glucose Restart home meds 4. Hypertension/hyperlipidemia Continue home medications 5. Severe constipation not alleviated by p.o. meds for bowel regimen. Also received enema. Added GoLYTELY as patient did not have a bowel movement even with enema. Patient had 3 BMs 06/19/18 Pain is fairly controlled Patient is able to ambulate with a walker. on 06/20/[address] Hirsch has been at the bedside for more than 45 minutes and answered all patient and girlfriend request at patient and girlfriend request who refusing to leave without talking and reviewing imaging with neurosurgeon I discussed with neurosurgeon recommends dilaudid po at [place] for acute pain and patient to see pain management as OP. To continue PT. EFORCSE reviewed and prescription printed Patient says his girlfriend is managing all his medications, however he takes decisions Patient improved. Had 3BMs Per neurosurgery recommendation patient to follow up as OP with neurology for a EMG studies. Also to follow up as OP with pain management. Patient after speaking with his girlfriend is refusing to be discharged and girlfriend is appealing the discharge on 06/20/18 On 06/21 Dr Curiel neurosurgeon also has seen the patient. Neurosurgery has placed patient back on IV dilaudid . on Patient is s/p CT left hip - normal. Also had epidural injection by IR. BS is noted elevated patient has been NPO for the procedures. Restarted Lantus, adjust insulin , a1c 10.3. The patient is also non compliant with the diet. Discussed with the patient, nurse, patient significant other
[2018-06-25] MEDS ORDERED: HYDROmorphone PF Inj 1 MG/ML Ampul IV.PUSH PRN (14:06)
--- NOTE | 2018-06-25 20:33 | P.PNNS ---
Subjective Interval history: He feels better today Ambulatin without difficulties Physical Exam Vital signs: Vital Signs 06/24/18 23:20 06/25/18 00:30 06/25/18 04:55 Temperature 98.0 F 97.4 F L Pulse Rate 97 H 73 Respiratory Rate 17 16 17 Blood Pressure 107/68 139/73 Pulse Oximetry 96 97 06/25/18 08:00 06/25/18 12:00 06/25/18 16:00 Temperature 97.3 F L 97.6 F 98.0 F Pulse Rate 93 H 77 108 H Respiratory Rate 18 16 18 Blood Pressure 132/83 141/84 H 141/78 H Pulse Oximetry 99 97 96 Intake & Output 06/25/18 06/25/18 06/26/18 06:59 18:59 06:59 Intake Total 720 / 720 Output Total 700 / 700 Balance Weight 80.3 kg Intake: Oral 720 / 720 Output: Urine 700 / 700 Other: Date of Last Bowel Movement 06/25/18 06/24/18 # Bowel Movements 1 Narrative: General appearance: Elderly male, appears in no acute distress. Cardiovascular: Regular rate and rhythm. No murmurs, rubs or gallops. Respiratory: Lungs clear to auscultation bilaterally. No wheezes or rhonchi. Abdomen: Soft, obese, nontender, nondistended. No peritoneal signs. Musculoskeletal: No gross deformities. No edema. Skin: No obvious rashes or erythema. Neuro: Sensory and motor grossly intact. Cranial nerves II through XII grossly intact. Assessment and Plan - Plan L3-4 left hemilaminectomy, mesiofacetectomy, foraminotomy, microsurgical resection of the disk 05/30/18 Left L4 persistent radicular pain, s/p L3-4 ABEBE 06/22/18 without relief left hip pain, CT L hip negative for fracture He feels better today Continue neuro checks Continue nonoperative treatment for disk protusion Antiinflammatories Wean dilaudid Daily PT DVT prophylaxis Discussed with Dr Moran Cleared per neurosurgery for discharge
[2018-06-25] MEDS: Prazosin HCl 1 MG Capsule PO SCH (21:31)
[2018-06-25] MEDS: Melatonin 5 MG Tablet PO PRN (21:32)
[2018-06-25] MEDS: Insulin Detemir Inj 1,000 UNIT/10 ML Vial SQ SCH (22:29)
[2018-06-26] MEDS: HYDROmorphone PF Inj 1 MG/ML Ampul IV.PUSH PRN ×4 (01:11→21:31)
[2018-06-26] MEDS ORDERED: Insulin Detemir Inj 1,000 UNIT/10 ML Vial SQ SCH (09:00)
[2018-06-26] MEDS: Senna/Docusate Sodium 8.6/50 MG Tablet PO SCH ×2 (09:08→21:32)
[2018-06-26] MEDS: Duloxetine 60 MG DR Capsule PO SCH (09:09)
[2018-06-26] MEDS: amLODIPine 10 MG Tablet PO SCH (09:09)
[2018-06-26] MEDS: Insulin NovoLOG Aspart Correctional Sugar Inj SQ SCH ×5 (09:09→22:08)
[2018-06-26] MEDS: CHLORTHALIDONE 12.5 MG PO SCH (10:37)
[2018-06-26] MEDS: JARDIANCE 25 MG PO SCH (10:37)
--- NOTE | 2018-06-26 13:08 | P.PNIM ---
Subjective Interval history: The patient is in bed does not appear in pain at this time. Sleepy. Patient and significant other and friend at bedside was noted eating food from the nursing station which was brought from outside by at the patient' s family pizza and chicken wings. Patient is not compliant with diet. Blood sugars not controlled. Plan for another steroid epidural injection patient says he still in pain. Dilaudid tapered. Continue to taper pain medications. Physical Exam Vital signs: Last Vital Signs Temp 98.0 F 06/26/18 10:27 Pulse 98 H 06/26/18 10:27 Resp 12 06/26/18 10:27 BP 108/53 L 06/26/18 10:27 Pulse Ox 98 06/26/18 10:27 Intake & Output 06/24/18 06/25/18 06/26/18 06/27/18 06:59 06:59 06:59 06:59 Intake Total 300 / 300 1440 / 1440 690 / 690 Output Total 175 / 175 1200 / 1200 550 / 550 Balance 125 / 125 240 / 240 140 / 140 Weight 80.2 kg 80.3 kg 80.3 kg Narrative: General appearance: Elderly male, appears in no acute distress. Cardiovascular: Regular rate and rhythm. No murmurs, rubs or gallops. Respiratory: Lungs clear to auscultation bilaterally. No wheezes or rhonchi. Abdomen: Soft, obese, nontender, nondistended. No peritoneal signs. Musculoskeletal: No gross deformities. No edema. Skin: No obvious rashes or erythema. Neuro: Sensory and motor grossly intact. Cranial nerves II through XII grossly intact. Results Labs CBC & Chem 7: 06/23/18 05:29 06/23/18 05:29 Assessment and Plan Plan 1. Left lower extremity pain, status post laminectomy Neurosurgery consulted, appreciate assistance Further work up in progress by neurosurgery Physical therapy/Occupational Therapy Dilaudid for pain Patient MRI without infection. Evaluated by neurosurgical team no intervention. Patient is clear for discharge by neurosurgery to follow-up as outpatient with neurology to have EMG studies as outpatient, also to follow-up with pain management as outpatient and have physical therapy and OT at discharge. Case management consulted for discharge planning Pain management per surgeon S/P L3/L4 epidural injection by IR on 06/22/[address] left hip on 06/22/18 , Imaging reviewed and normal hip, no evidence of fracture. S.P nerve block by IR on 06/23/18 2. Hypotension Likely vagal response secondary to poss pain. Also patient takes pain meds Orthostatic vital signs 3. Diabetes mellitus, uncontrolled. Last A1c in the records of > 9 in 2016. Repeat A1c this admission of 10.3. Holding home Lantus when patient n.p.o. Restarted afterwards. Monitor and adjust insulin Running scale insulin Monitor blood glucose Restart home meds 4. Hypertension/hyperlipidemia Continue home medications 5. Severe constipation not alleviated by p.o. meds for bowel regimen. Also received enema. Added GoLYTELY as patient did not have a bowel movement even with enema. Patient had 3 BMs 06/19/18 Pain is fairly controlled Patient is able to ambulate with a walker. on 06/20/[address] Hirsch has been at the bedside for more than 45 minutes and answered all patient and girlfriend request at patient and girlfriend request who refusing to leave without talking and reviewing imaging with neurosurgeon I discussed with neurosurgeon recommends dilaudid po at DC for acute pain and patient to see pain management as OP. To continue PT. EFORCSE reviewed and prescription printed I discussed with the patient possibility to follow-up with pain management as outpatient and to consider fentanyl patch as outpatient with pain management. Patient says his girlfriend is managing all his medications, however he takes decisions Patient improved. Per neurosurgery recommendation patient to follow up as OP with neurology for a EMG studies. Also to follow up as OP with pain management. Patient after speaking with his girlfriend is refusing to be discharged and girlfriend is appealing the discharge on 06/20/18 On 06/21 Dr Curiel neurosurgeon also has seen the patient. Neurosurgery has placed patient back on IV dilaudid . on Patient is s/p CT left hip - normal. Also had epidural injection by IR. BS is noted elevated patient has been NPO for the procedures. Restarted Lantus, adjust insulin , a1c 10.3. The patient is also non compliant with the diet. Will give 30 U lantus BID. Plan for another epidural injection Note patient has had an epidural injection, nerve block. Plan for 2nd epidural injection. This can be done as OP with pain management. Patient re -appeal the discharge Discussed with the patient, nurse
--- NOTE | 2018-06-26 15:47 | P.PNNS ---
Subjective Interval history: patient was seen by Dr. Curiel today which this note is written on his behalf, patient reports the nerve root injection did not help. he continues to report of same pain. Physical Exam Vital signs: Vital Signs 06/25/18 16:00 06/25/18 19:10 06/25/18 23:25 Temperature 98.0 F 97.8 F 97.9 F Pulse Rate 108 H 89 82 Respiratory Rate 18 17 17 Blood Pressure 141/78 H 132/75 159/85 H Pulse Oximetry 96 95 98 06/26/18 04:10 06/26/18 05:30 06/26/18 10:27 Temperature 97.2 F L 98.0 F Pulse Rate 81 98 H Respiratory Rate 17 17 12 Blood Pressure 139/83 108/53 L Pulse Oximetry 98 98 06/26/18 11:40 Temperature 97.8 F Pulse Rate 77 Respiratory Rate 15 Blood Pressure 133/80 Pulse Oximetry 95 Intake & Output 06/25/18 06/26/18 06/26/18 18:59 06:59 18:59 Intake Total 690 / 690 Output Total 550 / 550 Balance 140 / 140 Weight 80.3 kg Intake: Oral 690 / 690 Output: Urine 550 / 550 Other: Date of Last Bowel Movement 06/24/18 06/24/18 06/24/18 # Bowel Movements 0 Assessment and Plan - Plan L3-4 left hemilaminectomy, mesiofacetectomy, foraminotomy, microsurgical resection of the disk 05/30/18 Left L4 persistent radicular pain, s/p L3-4 ABEBE 06/22/18 without relief left hip pain, CT L hip negative for fracture Continue neuro checks Continue nonoperative treatment for disk protusion Antiinflammatories Wean dilaudid Daily PT DVT prophylaxis Dr. Curiel ordering trial of SI joint injection
[2018-06-26] MEDS ORDERED: Bupivacaine PF 0.75% Inj 10 ML Vial ONE (16:43)
[2018-06-26] MEDS ORDERED: Bupivacaine PF 0.75% Inj 10 ML Vial I-ARTICULR ONE (17:17)
[2018-06-26] MEDS: Prazosin HCl 1 MG Capsule PO SCH (21:32)
[2018-06-26] MEDS: Insulin Detemir Inj 1,000 UNIT/10 ML Vial SQ SCH (22:08)
[2018-06-26 22:37] VITALS: RESP 18
[2018-06-27] MEDS: HYDROmorphone PF Inj 1 MG/ML Ampul IV.PUSH PRN (04:00)
--- NOTE | 2018-06-27 08:37 | CT ---
EXAM DATE: 06/26/2018 5:36 PM EST AGE/SEX: 72 years / Male INDICATIONS: Left sided joint pain and leg pain. CLINICAL DATA: This is the patient's initial encounter. Patient reports that signs and symptoms have been present for 1 day and indicates a pain score of 7/10. MEDICAL/SURGICAL HISTORY: Diabetes. Gastroesophageal reflux disease. Hypertension. Cholecystectom y. Appendectomy. CABG. RADIATION DOSE: CTDI (mGy) COMPARISON: No prior exams available for comparison. INJECTION: 1.5 cc Kenalog; 1.5 cc Naropin; 10 cc Lidocaine FINDINGS: Under sterile conditions and using aseptic technique with CT guidance the SI joint was punctured and positive contrast was injected to confirm intra-articular position. Following this the prescribed mix ture of Kenalog and local anesthetic was injected. The patient tolerated procedure well and there wer e no complications.Using automated exposure control and adjustment of the mA and/or kV according to p atient size, radiation dose was kept as low as reasonably achievable to obtain optimal diagnostic yahaira lity images. DICOM format image data is available electronically for review and comparison. CONCLUSION: 1. Uncomplicated CT guided SI injection as above. Electronically signed by: Jam Bustillos MD Board Certified Radiologist 06/27/2018 8:36 AM EST
--- NOTE | 2018-06-27 09:57 | P.PNNS ---
Subjective Interval history: patient reports pain to be better today compared to yesterday following SI joint injection. ready for discharge home. Physical Exam Vital signs: Vital Signs 06/26/18 10:27 06/26/18 11:40 06/26/18 16:00 Temperature 98.0 F 97.8 F 97.8 F Pulse Rate 98 H 77 88 Respiratory Rate 12 15 14 Blood Pressure 108/53 L 133/80 137/78 Pulse Oximetry 98 95 95 06/26/18 19:31 06/27/18 00:07 06/27/18 00:30 Temperature 98.0 F 98.1 F Pulse Rate 92 H 92 H Respiratory Rate 18 18 18 Blood Pressure 125/72 120/75 Pulse Oximetry 95 94 L 06/27/18 04:30 06/27/18 06:36 06/27/18 08:00 Temperature 97.8 F Pulse Rate 87 Respiratory Rate 18 18 18 Blood Pressure 138/85 Pulse Oximetry 98 Intake & Output 06/26/18 06/27/18 06/27/18 18:59 06:59 18:59 Intake Total 480 / 480 Balance 480 / 480 Weight 80.3 kg Intake: Oral 480 / 480 Other: # Voids 4 2 Date of Last Bowel Movement 06/24/18 06/24/18 # Bowel Movements 0 Narrative: Awake, alert NAD appears more comfortable today moves lower extremities with good strength Assessment and Plan - Plan L3-4 left hemilaminectomy, mesiofacetectomy, foraminotomy, microsurgical resection of the disk 05/30/18 Left L4 persistent radicular pain, s/p L3-4 ABEBE 06/22/18 without relief left hip pain, CT L hip negative for fracture pain improved following left SI joint injection 06/26/18 and requests discharge dc home discussed with patient activity restriction and back precautions patient can follow up with [facility] for Pain Management follow up Dr. Curiel outpatient
[2018-06-27] MEDS: Insulin Detemir Inj 1,000 UNIT/10 ML Vial SQ SCH (10:03)
--- NOTE | 2018-06-27 10:03 | P.DS ---
DS: Providers Date of admission: 06/17/18 01:30 Primary care physician: Ngozi Yoo MD Consults: 06/21/18 19:40 Consult to Radiology Routine 06/17/18 00:18 Consult to Neurosurgery Routine Consulting Provider: Ok Martinez Preferred Warranty Manager:: Avery Curiel Patient known to:: Avery Curiel Reason for Consultation: s/p L3-L4 laminectomy, microdiscectomy on 05/30/18 Notified:: Service Spoke with:: [email or web address] Answering service Date Notified:: 06/17/18 Time Notified:: 00:40 Comments:: Per Dr. Curiel answering service, Dr. Curiel is out of town and Dr. Martinez is covering. Consult added to list,but Please call Dr. Martinez private cell in AM Ordering Provider: ANNE MARIE 06/18/18 10:43 HUB Only Consult Order Routine Consulting Provider: [facility],Agency Brief History from admission: 72-year-old male with a past medical history significant for recent laminectomy on 05/[address] Curiel, insulin-dependent diabetes mellitus, hypertension, hyperlipidemia presents to the emergency department as a transfer from [facility] for the evaluation of multiple falls and hypotension. The patient reports he has had pain since postop day 1 when he suffered a fall in the hospital immediately following his surgery. He had an L3-L4 laminectomy and microdiscectomy on 05/30/18. He was working with his physical therapist today when he became lightheaded. His physical therapist took his blood pressure and found to be 60/44. The patient reports his blood pressure dropped secondary to his acute pain. He states he has pain in his left hip that radiates to the groin and down the back of the leg. He states it is so painful that he is unable to weight-bear. He currently walks with a walker. He denies any chest pain or shortness of breath. No abdominal pain. No nausea/vomiting/diarrhea. No fever/chills. DS: Summary Mr. Yap is a 72yo Male w/ a hx of PTSD, Diabetes, HTN, Hyperlipidemia, GERD, BPH, Erectile Dysfunction, Opioid Induced Constipation, Chronic Back Pain, and Neuropathy. Per ED note, he is well known to ED service and was brought in by his Fiance on 05/25/18 c/o worsened back pain s/p epidural Lidocaine injection done outpatient by Dr. Yeh (pain management) for on . Pt reports that pain is currently 8/10 above his baseline (5-6/10) and is unable to get relief even with his prescribed narcotics on top of the lidocaine injection. Patient was admitted for, Left lower extremity pain, status post laminectomy. Neurosurgery consulted. MRI without infection. Evaluated by neurosurgical team no intervention. Patient is clear for discharge by neurosurgery to follow-up as outpatient with neurology to have EMG studies as outpatient, also to follow-up with pain management as outpatient and have physical therapy and OT at discharge. S/P L3/L4 epidural injection by IR on , Also had CT left hip on 06/22/18 , Imaging reviewed and normal hip, no evidence of fracture. S.P nerve block by IR on 06/23/18. Physical therapy/ Occupational Therapy and Dilaudid for pain with Flexeril for muscle spasm. Patient also had hypotension, with history of hypertension. Likely vagal response secondary to poss pain. Also patient takes pain meds ,Orthostatic vital signs monitored. Diabetes mellitus, uncontrolled. Last A1c in the records of > 9 in 2016. Repeat A1c this admission of 10.3. Elevated blood sugar likely related to steroids use. Restarted on the home medications and home dose insulin with sliding scale. On the course of hospitalization patient had Severe constipation not alleviated by p.o. meds for bowel regimen. Also received enema. Added GoLYTELY as patient did not have a bowel movement even with enema, which was improved. Patient had a regular bowel movement at this time. Discussed pain medication side effect for constipation. Patient will follow up with pain management as an outpatient. Neurosurgeon recommends dilaudid po at [place] for acute pain and patient to see pain management as outpatient E-FORE Prescription Drug Monitoring Database has been queried and verified prior to prescribing the controlled substance. Acute pain exception. This patient has normal, predicted, physiological, and time limited response to an adverse mechanical stimulus associated with surgery, trauma, or acute illness as described in my notes. There is a lack of alternative treatment options other than to include the prescribed narcotic treatment for this condition. Time Spent with Patient Total time spent providing and/or coordinating discharge services: Results Labs on day of discharge: Labs from last 24 hours 06/26/18 06/26/18 06/26/18 21:37 17:20 11:52 POC Glucose 373 H 235 H 228 H Impressions ITS Impressions Lumbar Spine MRI 06/17/18 00:00 CONCLUSION: 1. At L3-4 there is interval left-sided laminectomy with some residual fluid and enhancement around the exiting left L3 nerve. Mild disc bulge or protrusion is present at the L3-4 level. 2. No new disc protrusions identified. Abdomen X-Ray 06/19/18 00:00 CONCLUSION: Significant amount retained stool in the colon. No evidence of obstruction. Epidural Injection 06/22/18 00:00 CONCLUSION: 1. Uncomplicated fluoroscopically guided epidural injection as above. Hip CT 06/22/18 00:00 CONCLUSION: 1. Intact left hip 2. No evidence of fracture, dislocation or significant arthropathy. Nerve Block 06/23/18 00:00 CONCLUSION: 1. Uncomplicated fluoroscopically guided nerve root injection as above. SI JT Injection 06/26/18 00:00 CONCLUSION: 1. Uncomplicated CT guided SI injection as above. Discharge Plan Discharge Disposition Patient Disposition: /Home Health Service Discharge Condition Condition: Stable Discharge Order Discharge Orders: Discharge Order (Routine); Ordered 06/19/18 Ordered By: Fany Moran Neurosurgery Clear for Discharge (Routine); Ordered 06/27/18 Ordered By: Belinda Arnold Discharge Details Anticipated Discharge Date: 06/27/18 Discharge Comment: DC when cleared by neurosurgery Physicians Team ED Provider: Jacky Hwang Primary Care Provider: Ngozi Yoo Attending Provider: Jun Berger Other Providers: Ok Martinez ; [facility],Agency ; Avery Curiel Rxs /Orders / Referrals /Forms Prescriptions: New hydromorphone [Dilaudid] 2 mg tablet 2 mg PO Q4-6H PRN (Reason: Acute Pain Exemption) Qty: 12 RF: 0 cyclobenzaprine 10 mg Tablet 5 mg PO Q8H PRN (Reason: Muscle Spasm) 3 Days Qty: 9 RF: 0 Continue insulin aspart U-100 [Novolog U-100 Insulin aspart] 100 unit/mL Solution 10 unit SUBCUT AC LUNCH RF: 0 prazosin 1 mg Capsule 3 mg PO HS RF: 0 omeprazole 40 mg Capsule,Delayed Release(Dr/Ec) 40 mg PO BID RF: 0 aspirin [Aspir-81] 81 mg Tablet,Delayed Release (Dr/Ec) 81 mg PO DAILY RF: 0 amlodipine 10 mg Tablet 10 mg PO DAILY RF: 0 rosuvastatin 40 mg Tablet 40 mg PO DAILY RF: 0 duloxetine 60 mg Capsule,Delayed Release(Dr/Ec) 60 mg PO DAILY RF: 0 melatonin 10 mg Tablet 6 mg PO HS RF: 0 empagliflozin 25 mg Tablet 25 mg PO DAILY RF: 0 Lantus U-100 Insulin 25 units Sub-Q HS RF: 0 magnesium citrate solution 150 ml PO DAILY PRN (Reason: constipation) Qty: 296 RF: 0 turmeric 400 mg Capsule 1 tab PO DAILY RF: 0 chlorthalidone 25 mg Tablet 12.5 mg PO DAILY RF: 0 Discontinued oxycodone-acetaminophen 5-325 mg Tablet 1 tab PO Q4-6H PRN (Reason: Pain) RF: 0 No Action melatonin 10 mg Tablet PO HS PRN (Reason: Sleep) RF: 0 Referrals: [facility] [Outside] - See Instructions Bronwyn Dickson DO [Physician] - See Instructions ([place] [facility]) Avery Curiel MD [NEUROSURGERY] - See Instructions ( Please call the physician's office to book the appointment to be seen Follow up with Dr Curiel in his office 06/21/17 ) Pola Vasquez MD, PhD [Physician] - See Instructions (neuropathy, s/p laminectomy) Ngozi Yoo MD [Primary Care Provider] - See Instructions ( Please call the physician's office to book the appointment to be seen within [2-3 days ].) Randell Gimenez MD [Physician] - See Instructions ( Please call the physician's office to book the appointment to be seen within [2-3 days]. Patient with pain post laminectomy ) Discharge Instructions Patient Printed Instructions: Acute Low Back Pain (ED), Fall Prevention (DC), Deep Vein Thrombosis Prevention (DC), Diabetes and Nutrition (DC), Diabetes and Exercise (DC) Additional Instructions: ATTEND ALL F/U APPTS TAKE MEDS PRESCRIBED IN CASE OF EMERGENCY CALL 911 OR RETURN TO EMERGENCY ROOM Post Discharge Care Plan Care Plan Goals: Your Health Problems: Goals to Promote Your Health: * To prevent worsening of your condition * To maintain your health at the optimal level Directions to Meet Your Goals: * Take your medications as prescribed * Follow your dietary instruction * Follow activity as directed * Keep your appointments as scheduled * Take your immunizations and boosters as scheduled * If your symptoms worsen call your PCP * If no PCP go to Urgent Care or Emergency Room Smoking is dangerous to your health. Avoid second hand smoke. You may reach the 24-hour crisis hotline for domestic abuse at . Status ED Status: Left Department
[2018-06-27] MEDS: Insulin NovoLOG Aspart Correctional Sugar Inj SQ SCH (10:04)
[2018-06-27] MEDS: JARDIANCE 25 MG PO SCH (10:06)
[2018-06-27] MEDS: CHLORTHALIDONE 12.5 MG PO SCH (10:06)
--- NOTE | 2018-06-27 10:09 | P.DS ---
DS: Providers Date of admission: 06/17/18 01:30 Primary care physician: Ngozi Yoo MD Consults: 06/21/18 19:40 Consult to Radiology Routine 06/17/18 00:18 Consult to Neurosurgery Routine Consulting Provider: Ok Martinez Preferred Forensic Audit Expert:: Avery Curiel Patient known to:: Avery Curiel Reason for Consultation: s/p L3-L4 laminectomy, microdiscectomy on 05/30/18 Notified:: Service Spoke with:: [email or web address] Answering service Date Notified:: 06/17/18 Time Notified:: 00:40 Comments:: Per Dr. Curiel answering service, Dr. Curiel is out of town and Dr. Martinez is covering. Consult added to list,but Please call Dr. Martinez private cell in AM Ordering Provider: ANNE MARIE 06/18/18 10:43 HUB Only Consult Order Routine Consulting Provider: [facility] Brief History from admission: 72-year-old male with a past medical history significant for recent laminectomy on 05/[address] Curiel, insulin-dependent diabetes mellitus, hypertension, hyperlipidemia presents to the emergency department as a transfer from [facility] for the evaluation of multiple falls and hypotension. The patient reports he has had pain since postop day 1 when he suffered a fall in the hospital immediately following his surgery. He had an L3-L4 laminectomy and microdiscectomy on 05/30/18. He was working with his physical therapist today when he became lightheaded. His physical therapist took his blood pressure and found to be 60/44. The patient reports his blood pressure dropped secondary to his acute pain. He states he has pain in his left hip that radiates to the groin and down the back of the leg. He states it is so painful that he is unable to weight-bear. He currently walks with a walker. He denies any chest pain or shortness of breath. No abdominal pain. No nausea/vomiting/diarrhea. No fever/chills. DS: Summary Time Spent with Patient Total time spent providing and/or coordinating discharge services: Exam Narrative Exam Narrative: GENERAL: Well-developed, well-nourished, male in no acute distress SKIN: Warm and dry. HEAD: Atraumatic. Normocephalic. EYES: Pupils equal and round. No scleral icterus. No injection or drainage. ENT: No nasal bleeding or discharge. Mucous membranes pink and moist. NECK: Trachea midline. No JVD. CARDIOVASCULAR: Regular rate and rhythm. RESPIRATORY: No accessory muscle use. Clear to auscultation. Breath sounds equal bilaterally. GASTROINTESTINAL: Abdomen soft, non-tender, nondistended. Hepatic and splenic margins not palpable. MUSCULOSKELETAL: Extremities without clubbing, cyanosis, or edema. No obvious deformities. NEUROLOGICAL: Awake and alert. No obvious cranial nerve deficits. Generalized weakness moving all 4 extremities. Lower back incision clean dry and intact no redness no drainage no edema. Dressed dry and intact. Normal speech. PSYCHIATRIC: Appropriate mood and affect; insight and judgment normal. Results Labs on day of discharge: Labs from last 24 hours 06/27/18 06/26/18 06/26/18 10:01 21:37 17:20 POC Glucose 339 H 373 H 235 H 06/26/18 11:52 POC Glucose 228 H Impressions ITS Impressions Lumbar Spine MRI 06/17/18 00:00 CONCLUSION: 1. At L3-4 there is interval left-sided laminectomy with some residual fluid and enhancement around the exiting left L3 nerve. Mild disc bulge or protrusion is present at the L3-4 level. 2. No new disc protrusions identified. Abdomen X-Ray 06/19/18 00:00 CONCLUSION: Significant amount retained stool in the colon. No evidence of obstruction. Epidural Injection 06/22/18 00:00 CONCLUSION: 1. Uncomplicated fluoroscopically guided epidural injection as above. Hip CT 06/22/18 00:00 CONCLUSION: 1. Intact left hip 2. No evidence of fracture, dislocation or significant arthropathy. Nerve Block 06/23/18 00:00 CONCLUSION: 1. Uncomplicated fluoroscopically guided nerve root injection as above. SI JT Injection 06/26/18 00:00 CONCLUSION: 1. Uncomplicated CT guided SI injection as above. Discharge Plan Discharge Condition Condition: Stable Discharge Order Discharge Orders: Discharge Order (Routine); Ordered 06/19/18 Ordered By: Fany Moran Neurosurgery Clear for Discharge (Routine); Ordered 06/27/18 Ordered By: Belinda Arnold Discharge Details Anticipated Discharge Date: 06/27/18 Discharge Comment: DC when cleared by neurosurgery Physicians Team Primary Care Provider: Ngozi Yoo Attending Provider: Jun Berger Other Providers: Ok Martinez ; [facility] ; Avery Curiel Rxs /Orders / Referrals /Forms Prescriptions: New hydromorphone [Dilaudid] 2 mg tablet 2 mg PO Q4-6H PRN (Reason: Acute Pain Exemption) Qty: 12 RF: 0 cyclobenzaprine 10 mg Tablet 5 mg PO Q8H PRN (Reason: Muscle Spasm) 3 Days Qty: 9 RF: 0 Continue insulin aspart U-100 [Novolog U-100 Insulin aspart] 100 unit/mL Solution 10 unit SUBCUT AC LUNCH RF: 0 prazosin 1 mg Capsule 3 mg PO HS RF: 0 omeprazole 40 mg Capsule,Delayed Release(Dr/Ec) 40 mg PO BID RF: 0 aspirin [Aspir-81] 81 mg Tablet,Delayed Release (Dr/Ec) 81 mg PO DAILY RF: 0 amlodipine 10 mg Tablet 10 mg PO DAILY RF: 0 rosuvastatin 40 mg Tablet 40 mg PO DAILY RF: 0 duloxetine 60 mg Capsule,Delayed Release(Dr/Ec) 60 mg PO DAILY RF: 0 melatonin 10 mg Tablet 6 mg PO HS RF: 0 empagliflozin 25 mg Tablet 25 mg PO DAILY RF: 0 Lantus U-100 Insulin 25 units Sub-Q HS RF: 0 magnesium citrate solution 150 ml PO DAILY PRN (Reason: constipation) Qty: 296 RF: 0 turmeric 400 mg Capsule 1 tab PO DAILY RF: 0 chlorthalidone 25 mg Tablet 12.5 mg PO DAILY RF: 0 Discontinued oxycodone-acetaminophen 5-325 mg Tablet 1 tab PO Q4-6H PRN (Reason: Pain) RF: 0 No Action melatonin 10 mg Tablet PO HS PRN (Reason: Sleep) RF: 0 Referrals: [facility] [Outside] - See Instructions Bronwyn Dickson DO [Physician] - See Instructions ([place] [facility]) Avery Curiel MD [NEUROSURGERY] - See Instructions ( Please call the physician's office to book the appointment to be seen Follow up with Dr Curiel in his office 06/21/17 ) Pola Vasquez MD, PhD [Physician] - See Instructions (neuropathy, s/p laminectomy) Ngozi Yoo MD [Primary Care Provider] - See Instructions ( Please call the physician's office to book the appointment to be seen within [2-3 days ].) Randell Gimenez MD [Physician] - See Instructions ( Please call the physician's office to book the appointment to be seen within [2-3 days]. Patient with pain post laminectomy ) Discharge Instructions Patient Printed Instructions: Acute Low Back Pain (ED), Fall Prevention (DC), Deep Vein Thrombosis Prevention (DC), Diabetes and Nutrition (DC), Diabetes and Exercise (DC) Additional Instructions: ATTEND ALL F/U APPTS TAKE MEDS PRESCRIBED IN CASE OF EMERGENCY CALL 911 OR RETURN TO EMERGENCY ROOM Post Discharge Care Plan Care Plan Goals: Your Health Problems: Goals to Promote Your Health: * To prevent worsening of your condition * To maintain your health at the optimal level Directions to Meet Your Goals: * Take your medications as prescribed * Follow your dietary instruction * Follow activity as directed * Keep your appointments as scheduled * Take your immunizations and boosters as scheduled * If your symptoms worsen call your PCP * If no PCP go to Urgent Care or Emergency Room Smoking is dangerous to your health. Avoid second hand smoke. You may reach the 24-hour crisis hotline for domestic abuse at . Discharge Interventions Interventions: Discharge Planning - Case Management Last Done: 06/26/18 10:38 Status ED Status: Left Department
[2018-06-27] MEDS: amLODIPine 10 MG Tablet PO SCH (10:10)
[2018-06-27] MEDS: Senna/Docusate Sodium 8.6/50 MG Tablet PO SCH (10:10)
[2018-06-27] MEDS: Duloxetine 60 MG DR Capsule PO SCH (10:16)
[2018-06-27 11:44] VITALS: BP 132/80; PULSE 93; TEMP 98.6; O2SAT 97
== END 2018-06-27 13:50 | disposition home health service (06) | DRG 552 ==
LOC: NEPC 21:01 → NEDA 06-17 01:30 → N06 06-17 03:26
PROVIDERS: ADMIT Internal Medicine; ATTEND Internal Medicine
CPT/HCPCS: 27096; 62323; 64483; 72158; 73700; 74000; 74018; 76937; 77012; 80048; 80053; 82947; 82948; 82962; 83036; 85025; 85610; 85651; 85652; 85730; 86140; 90774; 90776; 90784; 92610; 94150; 96374; 96376; 97110; 97116; 97161; 97166; 97530; 97535; 99285; A4646; A9585; C8952; G0195; J1100; J1170; J1815; J1885; J2405; J3301; J7030; Q9949; Q9950; Q9965; Q9967